=== PATIENT | female | born 1990 | race Caucasian/White ===

== ENCOUNTER 2019-08-18 07:45 | Outpatient (CLI) | payer OTHER, SELFPAY ==
[2019-08-18 09:26] LABS: Alanine Aminotransferase 39 U/L (14-59); Albumin Level 3.8 g/dL (3.4-5.0); Alkaline Phosphatase 55 U/L (46-116); Aspartate Amino Transferase 20 U/L (15-37); Bilirubin,Total 0.5 mg/dL (0.00-1.00); Blood Urea Nitrogen 16 mg/dL (7-18); Calcium 9.3 mg/dL (8.5-10.1); Carbon Dioxide 26 mmol/L (21-32); Chloride 106 mmol/L (98-108); Estimated Glomerular Filt Rate > 60; Folic Acid 15.9 ng/mL (8.6->20); Free T3 3.04 pg/mL (2.18-3.98); Free T4 Free Thyroxine 0.76 ng/dL (0.76-1.46); Glucose 124 mg/dL (70-99); Osmolality Calculated 296 mOsm/kg (285-295); Sodium 142 mmol/L (136-145); Thyroid Stimulating Hormone 1.99 uIU/mL (0.36-3.74); Vitamin B12 508 pg/mL (193-986)
[2019-08-21 12:17] LABS: Parathyroid Intact 22 pg/mL (14-64)
[2019-08-22 05:07] LABS: Thyroid Peroxidase Antibodies 39 IU/mL (<9)
[2019-08-23 15:21] LABS: Thyroid Stimulating Immunoglob <89 % baseline (<140)
== END 2019-08-18 07:46 | disposition home or self-care (01) ==
LOC: CHSLAB 07:48
PROVIDERS: PCP Family Medicine; Visit Provider Internal Medicine Endocrinology, Diabetes & Metabolism
DX: M85.80 Other specified disorders of bone density and structure, unspecified site (principal); R53.83 Other fatigue
CPT/HCPCS: 36415; 80053; 82306; 82607; 82746; 83970; 84439; 84443; 84445; 84481; 86376

== ENCOUNTER 2019-11-05 09:03 | Outpatient (CLI) | payer OTHER, SELFPAY ==
--- NOTE | ~2019-11-05 | US_ITS ---
EXAMINATION: US thyroid DATE: 11/05/2019 09:48 INDICATION: Goiter. TECHNIQUE: Multiple ultrasound images of the thyroid were obtained. COMPARISON: None. FINDINGS: The right thyroid lobe measures 4.8 x 1.1 x 1.6 cm. The left thyroid lobe measures 4.5 x 0.8 x 1.4 c m. In the right thyroid lobe, there is a 5 mm solid, hypoechoic, ucdkp-[id number]-syoi nodule with irregul ar margin without echogenic foci (TI-RADS TR4). In the left thyroid lobe, there is an 8 mm solid, hyp oechoic, aepuq-lwis-hcee nodule with lobulated margin without echogenic foci (TR4). IMPRESSION: 1. Small thyroid nodules, likely not clinically significant. No imaging follow-up is needed. Reviewed, dictated and finalized at location A. IMPRESSION: 1. Small thyroid nodules, likely not clinically significant. No imaging follow- up is needed.
[2019-11-05 09:32] LABS: Hemoglobin A1C 5.1 % (<5.7)
[2019-11-05 10:18] LABS: Alanine Aminotransferase 35 U/L (14-59); Albumin Level 3.7 g/dL (3.4-5.0); Alkaline Phosphatase 84 U/L (46-116); Anion Gap 14.7 mmol/L (7-16); Aspartate Amino Transferase 33 U/L (15-37); Bilirubin,Total 0.4 mg/dL (0.00-1.00); Blood Urea Nitrogen 7 mg/dL (7-18); Calcium 9.1 mg/dL (8.5-10.1); Carbon Dioxide 26 mmol/L (21-32); Chloride 103 mmol/L (98-108); Cholesterol 146 mg/dL (0-200); Estimated Glomerular Filt Rate > 60; Free T3 3.19 pg/mL (2.18-3.98); Free T4 Free Thyroxine 0.97 ng/dL (0.76-1.46); Glucose 75 mg/dL (70-99); HDL Direct 90 mg/dL (40-60); LDL Cholesterol Calculated 45 mg/dL (<130); Osmolality Calculated 287 mOsm/kg (285-295); Potassium 3.7 mmol/L (3.5-5.1); Sodium 140 mmol/L (136-145); Thyroid Stimulating Hormone 1.04 uIU/mL (0.36-3.74); Total Protein 7.1 g/dL (6.4-8.2); Triglycerides 55 mg/dL (0-150)
[2019-11-08 03:22] LABS: Insulin Level Total 2.7 uIU/mL (<=19.6); Thyroid Peroxidase Antibodies 76 IU/mL (<9)
[2019-11-09 18:45] LABS: Vitamin D 25 Hydroxy 43 ng/mL (30-100)
== END 2019-11-05 09:04 | disposition home or self-care (01) ==
PROVIDERS: PCP Family Medicine; Visit Provider Internal Medicine Endocrinology, Diabetes & Metabolism
DX: E06.3 Autoimmune thyroiditis (principal); E55.9 Vitamin D deficiency, unspecified; R73.01 Impaired fasting glucose; E04.9 Nontoxic goiter, unspecified
CPT/HCPCS: 36415; 76536; 80053; 80061; 82306; 83036; 83525; 84439; 84443; 84481; 86376

== ENCOUNTER 2020-03-18 19:56 | Emergency (ER) | payer OTHER, SELFPAY ==
--- NOTE | ~2020-03-18 | XR_ITS ---
EXAMINATION: XR abdomen/kub 1V INDICATION: Constipation TECHNIQUE: Supine views of the abdomen were obtained on 2 radiographs. COMPARISON: 09/04/2009 FINDINGS: The bowel gas pattern is normal. There is a moderate volume of colonic stool. No dilated lo ops of bowel are evident. The visualized lung bases are clear. An IUD is noted. The osseous structure s are unremarkable. IMPRESSION: 1. Moderate volume of colonic stool. Reviewed, dictated and finalized at location A.
--- NOTE | 2020-03-18 20:02 | ED.GIBLEED ---
HPI - GI Bleed General Chief complaint: Unspecified Stated complaint: rectal bleeding Time Seen by Provider: 03/18/20 20:07 Source: patient and RN notes reviewed Mode of arrival: ambulatory Limitations: no limitations History of Present Illness HPI Narrative: patient states she has had bloating and constipation with some abdominal pain right lower quadrant for 6 months. She vomited once today. She had some blood on her stool 1 week ago and then it resolved and then she had blood on her stool today. She does have a history of constipation. She denies any fever chills. complaint: blood on toilet paper Onset (ago): week(s) (1) Pain Consistency: intermittent Severity: moderate Exacerbating factors: bowel movement Context: hemorrhoids Associated symptoms: abdominal pain and vomiting (once today) Treatments Prior to Arrival: none Related Data Home Medications Medication Instructions Recorded Confirmed No Home Medications 03/18/20 03/18/20 Allergies Allergy/AdvReac Type Severity Reaction Status Date / Time No Known Allergies Allergy Unverified 06/14/14 09:08 Review of Systems Review of Systems: All systems reviewed & are unremarkable except as noted in HPI and below PMFSH Past Medical History Medical History (Updated 03/18/20 @ 21:37 by Selvin Owens MD) Chromosome abnormality Hemorrhoids Surgical History Surgical History Cleft palate Social History Social History (Updated 03/18/20 @ 20:32 by Selvin Owens MD) Smoking status: Current every day smoker Tobacco type: cigarettes Alcohol intake: current Alcohol use details: daily beer and hard liquor Substance use: never Exam Const: General: healthy appearing and no acute distress Nutritional Appearance: well nourished Orientation/consciousness: patient oriented x3 Other: Female nurse in room during examination. HENMT: Head: normal to inspection Ears: external ears normal General nose exam: Normal external nose present Eyes: Conjunctivae: conjunctivae normal Pupils: Equal, round and reactive pupils present EOM: EOMs intact bilaterally Neck: Neck: normal visual inspection Resp: Effort & Inspection: normal respiratory effort Auscultation: clear to auscultation bilaterally Cardio: Rate: regular rate Rhythm: regular rhythm GI: GI Palp: Yes Soft to palpation, Yes Tenderness to palpation present (GI) (RLQ-Mild), No Guarding due to palpation present (GI) and No Rebound tenderness present Auscultation: normal bowel sounds Rectal Exam: normal sphincter tone, No External hemorrhoid(s) present, No Internal hemorrhoid(s) present, No fecal impaction and No Anal fissure(s) present Back/Spine/Pelvis: Cervical Spine: cervical ROM normal Thoracic/Lumbar Spine: thoraco-lumbar ROM normal Skin: General skin exam: normal color Rashes: no rashes Neuro: General: patient oriented x3, moves all extremities and no focal motor deficits Speech: normal speech Gait exam (Neuro): Normal gait present Extrem: General: normal to inspection and no clubbing, cyanosis or edema Psych: Appearance: grossly normal and well kempt Mental Status: mental status grossly normal Affect: normal affect Attitude: cooperative Thought content: Yes Normal thought content present Course Vital Signs Vital signs: Vital Signs Temperature 36.6 C 03/18/20 20:10 Pulse Rate 86 03/18/20 20:10 Respiratory Rate 14 03/18/20 20:10 Blood Pressure 158/100 H 03/18/20 20:10 Pulse Oximetry 99 03/18/20 20:10 Temperature 36.6 C 03/18/20 20:10 Pulse Rate 80 03/18/20 21:40 Respiratory Rate 14 03/18/20 21:40 Blood Pressure 147/94 H 03/18/20 21:40 Pulse Oximetry 99 03/18/20 21:40 MDM - GI Bleed Lab Data Result diagrams: 03/18/20 20:39 03/18/20 20:39 Labs: Lab Results 03/18/20 03/18/20 03/18/20 Range/Units 20:39 20:39 20:39 WBC 7.6 (4.8-10.8)
[2020-03-18 20:10] VITALS: BP 158/100; PULSE 86; RESP 14; TEMP 36.6; O2SAT 99
[2020-03-18 20:46] LABS: Basophils Absolute Auto 0.03 K/mm3 (0.00-0.10); Basophils Percent Auto 0.4 % (0.0-1.0); Eosinophils Absolute Auto 0.23 K/mm3 (0.02-0.50); Hemoglobin 14.3 g/dL (12.0-15.0); Immature Granulocyte Absolute 0.03 K/mm3 (0.00-0.00); Immature Granulocyte Percent A 0.4 % (0.0-0.0); Lymphocytes Absolute Auto 1.77 K/mm3 (1.10-4.50); Lymphocytes Percent Auto 23.3 % (18.0-42.0); Mean Corpuscular Hemoglobin 32.3 pg (27.0-31.0); Mean Corpuscular Volume 94.8 fL (78.0-102.0); Monocytes Absolute Auto 0.59 K/mm3 (0.10-0.90); Monocytes Percent Auto 7.8 % (2.0-11.0); Neutrophils Percent Auto 65.1 % (50.0-70.0); Platelet Count Result 268 K/mm3 (150-420); Red Blood Count 4.43 M/mm3 (4.20-5.40); Red Cell Distribution Width 12.6 % (11.6-14.4); White Blood Count 7.6 K/mm3 (4.8-10.8)
[2020-03-18 20:47] LABS: Add Urine Microscopic? NO; Appearance Urine Clear (Clear); Bilirubin Urine Negative (Negative); Blood Urine Negative (Negative); Color Urine Yellow (Yellow); Glucose Urine UA Negative (Negative); Ketones Urine Negative (Negative); Leukocyte Esterase Ur Negative LEU/UL (Negative); Nitrate Urine Negative (Negative); Protein Urine Negative (Negative); Specific Grav Ur <= 1.005 (1.010-1.020); Urobilinogen Urine 0.2 mg/dL (0.2-1.0)
[2020-03-18 20:48] LABS: Occult Blood Negative (Negative)
[2020-03-18 20:57] LABS: CRP < 0.5 mg/dL (0.0-0.9)
[2020-03-18 21:03] LABS: Alanine Aminotransferase 33 U/L (14-59); Albumin Level 3.6 g/dL (3.4-5.0); Alkaline Phosphatase 81 U/L (46-116); Anion Gap 6 mmol/L (8-16); Aspartate Amino Transferase 21 U/L (15-37); Bilirubin,Total 0.3 mg/dL (0.00-1.00); Blood Urea Nitrogen 10 mg/dL (7-18); Calcium 8.9 mg/dL (8.5-10.1); Carbon Dioxide 30 mmol/L (21-32); Chloride 102 mmol/L (98-108); Estimated Glomerular Filt Rate > 60; Glucose 89 mg/dL (70-99); Lipase 182 U/L (73-393); Osmolality Calculated 284 mOsm/kg (285-295); Potassium 3.6 mmol/L (3.5-5.1); Sodium 138 mmol/L (136-145); Total Protein 7.4 g/dL (6.4-8.2)
[2020-03-18 21:08] LABS: Pregnancy On Board Control Positive; Urine Pregnancy Test Negative
[2020-03-18 21:40] VITALS: BP 147/94; PULSE 80; RESP 14; O2SAT 99
== END 2020-03-18 21:45 | disposition home or self-care (01) ==
PROVIDERS: Emergency Provider Emergency Medicine; PCP Family Medicine
DX: K59.04 Chronic idiopathic constipation (principal)
CPT/HCPCS: 36415; 74018; 80053; 81003; 81025; 82272; 83690; 85025; 86140; 99282; 99283

== ENCOUNTER 2020-03-21 08:40 | Outpatient (CLI) | payer OTHER, SELFPAY ==
[2020-03-21 09:39] LABS: Alanine Aminotransferase 29 U/L (14-59); Albumin Level 3.8 g/dL (3.4-5.0); Alkaline Phosphatase 80 U/L (46-116); Anion Gap 6 mmol/L (8-16); Aspartate Amino Transferase 19 U/L (15-37); Bilirubin,Total 0.5 mg/dL (0.00-1.00); Blood Urea Nitrogen 8 mg/dL (7-18); Calcium 9.1 mg/dL (8.5-10.1); Carbon Dioxide 29 mmol/L (21-32); Chloride 104 mmol/L (98-108); Estimated Glomerular Filt Rate > 60; Free T3 3.98 pg/mL (2.18-3.98); Free T4 Free Thyroxine 1.01 ng/dL (0.76-1.46); Glucose 95 mg/dL (70-99); Osmolality Calculated 286 mOsm/kg (285-295); Sodium 139 mmol/L (136-145); Thyroid Stimulating Hormone 3.24 uIU/mL (0.36-3.74); Total Protein 7.6 g/dL (6.4-8.2)
[2020-03-23 17:57] LABS: Vitamin D 25 Hydroxy 36 ng/mL (30-100)
[2020-03-25 04:24] LABS: Thyroid Peroxidase Antibodies 52 IU/mL (<9)
== END 2020-03-21 08:41 | disposition home or self-care (01) ==
LOC: CHSLAB 08:42
PROVIDERS: PCP Family Medicine; Visit Provider Internal Medicine Endocrinology, Diabetes & Metabolism
DX: E55.9 Vitamin D deficiency, unspecified (principal); E06.3 Autoimmune thyroiditis
CPT/HCPCS: 36415; 80053; 82306; 84439; 84443; 84481; 86376

== ENCOUNTER 2020-05-22 15:52 | Outpatient (CLI) | payer OTHER, SELFPAY ==
--- NOTE | ~2020-05-22 | XR_ITS ---
EXAMINATION: XR abdomen obstructive series DATE: 05/22/2020 16:40 INDICATION: Right lower quadrant abdominal pain. Nausea and vomiting. TECHNIQUE: Supine and upright views of the abdomen. FINDINGS: 03/18/2020 The visualized lung parenchyma is normal.. There is a nonobstructive bowel gas pattern. Gas and stool are seen throughout the colon to the level of the rectum. There is no free air. There is an IUD in the pelvis. IMPRESSION: 1. No acute abdominal abnormality. Reviewed, dictated and finalized at location B. [employer]
[2020-05-22 16:15] LABS: Basophils Absolute Auto 0.05 K/mm3 (0.00-0.10); Basophils Percent Auto 0.6 % (0.0-1.0); Eosinophils Absolute Auto 0.44 K/mm3 (0.02-0.50); Eosinophils Percent Auto 5.5 % (1.0-6.0); Immature Granulocyte Absolute 0.02 K/mm3 (0.00-0.00); Immature Granulocyte Percent A 0.2 % (0.0-0.0); Lymphocytes Absolute Auto 1.71 K/mm3 (1.10-4.50); Lymphocytes Percent Auto 21.3 % (18.0-42.0); Mean Corpuscular HGB Conc 33.3 g/dL (32.0-36.0); Mean Corpuscular Volume 95.9 fL (78.0-102.0); Mean Platelet Volume 9.4 fl (9.2-11.8); Monocytes Absolute Auto 0.56 K/mm3 (0.10-0.90); Neutrophils Absolute Auto 5.3 K/mm3 (1.7-7.2); Neutrophils Percent Auto 65.4 % (50.0-70.0); Platelet Count Result 304 K/mm3 (150-420); Red Blood Count 4.38 M/mm3 (4.20-5.40); Red Cell Distribution Width 11.9 % (11.6-14.4)
[2020-05-22 16:18] LABS: Add Urine Microscopic? NO; Appearance Urine Clear (Clear); Bilirubin Urine Negative (Negative); Blood Urine Negative (Negative); Color Urine Yellow (Yellow); Glucose Urine UA Negative (Negative); Ketones Urine Negative (Negative); Leukocyte Esterase Ur Negative LEU/UL (Negative); Nitrate Urine Negative (Negative); Protein Urine Negative (Negative); Specific Grav Ur 1.015 (1.010-1.020); Urobilinogen Urine 0.2 mg/dL (0.2-1.0)
[2020-05-22 16:48] LABS: Alanine Aminotransferase 33 U/L (14-59); Albumin Level 3.9 g/dL (3.4-5.0); Alkaline Phosphatase 70 U/L (46-116); Amylase 66 U/L (25-115); Anion Gap 7 mmol/L (8-16); Aspartate Amino Transferase 18 U/L (15-37); Bilirubin,Total 0.6 mg/dL (0.00-1.00); Blood Urea Nitrogen 10 mg/dL (7-18); Calcium 9.3 mg/dL (8.5-10.1); Carbon Dioxide 30 mmol/L (21-32); Chloride 102 mmol/L (98-108); Estimated Glomerular Filt Rate > 60; Glucose 87 mg/dL (70-99); Lipase 169 U/L (73-393); Osmolality Calculated 286 mOsm/kg (285-295); Potassium 4.2 mmol/L (3.5-5.1); Sodium 139 mmol/L (136-145); Total Protein 7.2 g/dL (6.4-8.2)
== END 2020-05-22 15:53 | disposition home or self-care (01) ==
LOC: CHSLAB 15:53
PROVIDERS: PCP Family Medicine; Visit Provider Family Medicine
DX: R10.9 Unspecified abdominal pain (principal)
CPT/HCPCS: 36415; 74019; 80053; 81003; 82150; 83690; 85025

== ENCOUNTER 2020-07-01 08:30 | Outpatient (CLI) | payer OTHER, SELFPAY ==
[2020-07-03 19:06] LABS: SARS-CoV-2 RNA PCR Negative
== END 2020-07-01 08:31 | disposition home or self-care (01) ==
LOC: CHSLAB 08:34
PROVIDERS: PCP Family Medicine; Visit Provider Family Medicine
DX: Z01.812 Encounter for preprocedural laboratory examination (principal); Z20.822 Contact with and (suspected) exposure to COVID-19
CPT/HCPCS: C9803; U0003

== ENCOUNTER 2020-08-27 09:02 | Outpatient (CLI) | payer OTHER, SELFPAY ==
[2020-08-28 18:02] LABS: SARS-CoV-2 RNA PCR Negative
== END 2020-08-27 09:03 | disposition home or self-care (01) ==
LOC: CHSLAB 09:04
PROVIDERS: PCP Family Medicine; Visit Provider Family Medicine
DX: Z01.818 Encounter for other preprocedural examination (principal); Z20.822 Contact with and (suspected) exposure to COVID-19
CPT/HCPCS: C9803; U0003; U0005

== ENCOUNTER 2020-09-04 15:52 | Outpatient (CLI) | payer OTHER, SELFPAY ==
--- NOTE | ~2020-09-04 | XR_ITS ---
XR thoracic spine 3V DATE: 09/04/2020 16:22 INDICATION: Mid to lower back pain. No known injury. TECHNIQUE: Lateral and swimmer views only COMPARISON: None FINDINGS: No fracture or dislocation or bone destruction is evident. There is slight spurring at T12- L1. IMPRESSION: No significant abnormality of the thoracic spine on this limited lateral view only examin ation Reviewed, dictated and finalized at location A. IMPRESSION: No significant abnormality of the thoracic spine on this limited la teral view only examination
--- NOTE | ~2020-09-04 | XR_ITS ---
XR lumbar spine 2-3V DATE: 09/04/2020 16:22 INDICATION: Low back pain. No known injury. TECHNIQUE: Lateral and lateral lumbosacral views only. No AP view. COMPARISON: None FINDINGS: Probable transitional first sacral vertebra. Normal alignment of the lumbar spine. No fracture or bone destruction or spondylolisthesis is evident . Lumbar interspaces appear well preserved. An IUD device is noted. IMPRESSION: Probable transitional first sacral vertebra Reviewed, dictated and finalized at location A.
--- NOTE | ~2020-09-04 | XR_ITS ---
XR abdomen obstructive series DATE: 09/04/2020 16:23 INDICATION: Right lower quadrant abdominal pain, constipation, indigestion. History of ulcers. TECHNIQUE: Supine and upright AP views COMPARISON: 05/22/2020 obstructive series FINDINGS: Incidentally noted is a transitional lumbosacral vertebra. Heart size appears normal. The lung bases are clear. No pleural effusion or intraperitoneal free air. The psoas shadows appear intact. No visceromegaly is evident. There is no evidence of bowel obstruct ion. An IUD overlies the pelvis. IMPRESSION: No evidence of bowel obstruction or free air IUD Reviewed, dictated and finalized at Location A. Reviewed, dictated and finalized at location A.
== END 2020-09-04 15:53 | disposition home or self-care (01) ==
LOC: CHSIMG 15:54
PROVIDERS: PCP Family Medicine; Visit Provider Family Medicine
DX: R10.31 Right lower quadrant pain (principal); M54.6 Pain in thoracic spine; M54.5 Low back pain
CPT/HCPCS: 72072; 72100; 74019

== ENCOUNTER 2020-09-15 08:35 | Outpatient (CLI) | payer OTHER, SELFPAY ==
[2020-09-15 09:29] LABS: Alanine Aminotransferase 30 U/L (14-59); Albumin Level 3.7 g/dL (3.4-5.0); Alkaline Phosphatase 66 U/L (46-116); Anion Gap 10 mmol/L (8-16); Aspartate Amino Transferase 16 U/L (15-37); Blood Urea Nitrogen 9 mg/dL (7-18); Calcium 9.3 mg/dL (8.5-10.1); Carbon Dioxide 30 mmol/L (21-32); Chloride 101 mmol/L (98-108); Estimated Glomerular Filt Rate > 60; Free T3 2.95 pg/mL (2.18-3.98); Free T4 Free Thyroxine 1.02 ng/dL (0.76-1.46); Glucose 115 mg/dL (70-99); Osmolality Calculated 291 mOsm/kg (285-295); Potassium 3.4 mmol/L (3.5-5.1); Sodium 141 mmol/L (136-145); Total Protein 7.1 g/dL (6.4-8.2)
[2020-09-18 08:35] LABS: Thyroid Peroxidase Antibodies 55 IU/mL (<9)
[2020-09-18 15:42] LABS: Vitamin D 25 Hydroxy 25 ng/mL (30-100)
== END 2020-09-15 08:36 | disposition home or self-care (01) ==
LOC: CHSLAB 08:36
PROVIDERS: PCP Family Medicine; Visit Provider Internal Medicine Endocrinology, Diabetes & Metabolism
DX: E06.3 Autoimmune thyroiditis (principal); E55.9 Vitamin D deficiency, unspecified
CPT/HCPCS: 36415; 80053; 82306; 84439; 84443; 84481; 86376

== ENCOUNTER 2020-09-17 20:14 | Emergency (ER) | payer OTHER, SELFPAY ==
--- NOTE | ~2020-09-17 | CT_ITS ---
EXAMINATION: CT brain wo con EXAM DATE: 09/17/2020 20:47 INDICATION: Headache, generalized. TECHNIQUE: Spiral CT of the head was performed without contrast. Axial, coronal and sagittal images were reviewed. The dose-length product (DLP) for this examination was 529.67 mGy-cm. The exposure w as tailored according to patient size, and iterative reconstruction (ASIR) was used as additional dos e reduction technique. Comparison is made to prior examination from 02/06/2019. FINDINGS: There is no acute intraparenchymal hemorrhage. No evidence of intraparenchymal brain mass lesion. No evidence of acute infarction. There is no mass effect or midline shift. The ventricles are normal in size. There are no extra-axial collections. There are no acute calvarial fractures. T he orbits are unremarkable. Soft tissue is unremarkable. The visualized sinuses and mastoid air nancy ls are well aerated. IMPRESSION: 1. Normal head CT examination. Reviewed, dictated and finalized at location A.
[2020-09-17 20:20] VITALS: BP 147/88; PULSE 112; RESP 16; TEMP 36.3; O2SAT 100
--- NOTE | 2020-09-17 20:40 | ED.HA ---
HPI - Headache General Chief Complaint: Headache Stated Complaint: need ahead scan Time Seen by Provider: 09/17/20 20:29 Source: patient Mode of arrival: ambulatory Limitations: no limitations History of Present Illness HPI Narrative: This is a 30 year old female that presents to the ER for headaches intermittently over the last couple of months. Reports they are band like and feel like a pressure. She has been getting them almost everyday. She has not been taking any medications for her headaches. Denies fever, stiff neck, vision changes, or vomiting. Related Data Home Medications Medication Instructions Recorded Confirmed No Home Medications 03/18/20 09/17/20 Allergies Allergy/AdvReac Type Severity Reaction Status Date / Time No Known Allergies Allergy Verified 09/17/20 20:15 Review of Systems Review of Systems: Narrative: CONSTITUTIONAL: Denies fever EYES: Denies visual changes GASTROINTESTINAL: Denies vomiting NEUROLOGIC: Reports headache. Denies numbness, or weakness. All systems reviewed & are unremarkable except as noted in HPI and below PMFSH Past Medical History Medical History (Updated 09/17/20 @ 21:40 by Rachel Lopez PA-C) Chromosome abnormality Hemorrhoids Surgical History Surgical History Cleft palate Social History Social History (Updated 03/18/20 @ 20:32 by Selvin Owens MD) Smoking status: Current every day smoker Tobacco type: cigarettes Alcohol intake: current Substance use: never Gender identity (if verbalized by the patient): Female Exam Narrative: Exam Narrative: GENERAL: Well-appearing, well-nourished, and in no acute distress. HEAD: Normocephalic, atraumatic. EYES: PERRLA and EOMI. ENT: Nares clear, no rhinorrhea or epistaxis. Mucous membranes moist. Oropharynx without tonsillar hypertrophy exudate or other lesions. Bilateral TMs pearly hazel non-bulging NECK: Supple. No adenopathy or masses. CHEST: Clear to auscultation. No respiratory distress. No wheezes rales or rhonchi HEART: Regular rate and rhythm. No murmur heard. Normal peripheral pulses. EXTREMITIES: Normal range of motion. No edema. Strength equal in bilateral upper and lower extremities (5/5) SKIN: Warm, dry, no rash. NEURO: No focal deficits. Alert and oriented x3. Cranial nerves II through XII grossly intact. Normal [id number] PSYCH: Normal mood and affect Course Vital Signs Vital signs: Vital Signs Temperature 97.3 F L 09/17/20 20:20 Pulse Rate 112 H 09/17/20 20:20 Respiratory Rate 16 09/17/20 20:20 Blood Pressure 147/88 H 09/17/20 20:20 Pulse Oximetry 100 09/17/20 20:20 Temperature 97.3 F L 09/17/20 20:20 Pulse Rate 100 09/17/20 21:37 Respiratory Rate 16 09/17/20 21:37 Blood Pressure 154/103 H 09/17/20 21:37 Pulse Oximetry 99 09/17/20 21:37 MDM - Headache MDM Narrative Medical decision making narrative: Patient presents the emergency department for headaches that have been intermittent over the last couple months. Tachycardic upon arrival, this normalized with IV fluids. She is afebrile and nontoxic-appearing. She is neurologically intact. CT scan of the brain is normal. Reports improvement with migraine cocktail. She is stable and felt appropriate for further outpatient evaluation. She is to follow-up with primary care doctor. She was given warnings to return to the ER Imaging Data Radiologist's impression: ITS Impressions Head CT 09/17/20 20:50 IMPRESSION: 1. Normal head CT examination. Critical Care Time Critical Care Time Critical Care Time: No Discharge Plan Discharge Clinical Impression: Headache Qualifiers: Headache type: unspecified Headache chronicity pattern: chronic headache Intractability: not intractable Qualified Code(s): R51.9 - Headache, unspecified Patient Disposition: Home, Self-Care Condition: Stable Instructions: General Hea
[2020-09-17] MEDS: SODIUM CHLORIDE 0.9% IV 1,000 ML 999 ML IV CONT (21:21)
[2020-09-17] MEDS: KETOROLAC 30 MG/ML VIAL (*BKC) IV PUSH (21:23)
[2020-09-17] MEDS: diphenhydrAMINE HCl INJ 50 MG/ML VIAL 25 MG IV PUSH (21:25)
[2020-09-17] MEDS: METOCLOPRAMIDE HCL INJ 10 MG/2 ML VIAL IV PUSH (21:25)
[2020-09-17 21:37] VITALS: BP 154/103; PULSE 100; RESP 16; O2SAT 99
[2020-09-17 22:12] VITALS: BP 140/86; PULSE 75; RESP 16; O2SAT 97
--- NOTE | 2020-09-29 05:02 | PC.NURSE ---
LATE ENTRY This note is being entered to document information to the patient's record. The following information was omitted on [09/17/20], NS stopped at 2120 with 1000cc infused by [Noble Richardson].
== END 2020-09-17 22:13 | disposition home or self-care (01) ==
PROVIDERS: Emergency Provider Emergency Medicine; PCP Family Medicine
DX: R51.9 Headache, unspecified (principal); F17.210 Nicotine dependence, cigarettes, uncomplicated
CPT/HCPCS: 70450; 96365; 96375; 99284; J0131; J1200; J1885; J2765; J7030

== ENCOUNTER 2020-12-23 07:05 | Emergency (ER) | payer OTHER, SELFPAY ==
[2020-12-23 07:15] VITALS: BP 133/84; PULSE 94; PULSE 95; RESP 18; RESP 19; TEMP 36.2; O2SAT 100; O2SAT 98
[2020-12-23 07:16] VITALS: PULSE 93; RESP 21; O2SAT 99
[2020-12-23 07:30] VITALS: PULSE 96; RESP 19; O2SAT 99
[2020-12-23 07:31] VITALS: BP 140/81; PULSE 95; RESP 27; O2SAT 99
[2020-12-23] MEDS: LORazepam (*CRX) 0.5 MG TABLET 1 MG PO (07:42)
[2020-12-23 07:45] VITALS: PULSE 84; RESP 16; O2SAT 100
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
[2020-12-23 08:00] VITALS: PULSE 95; RESP 23
== END 2020-12-23 08:30 | disposition home or self-care (01) ==
LOC: ANHED 08:28
PROVIDERS: Emergency Provider Emergency Medicine; PCP Family Medicine
DX: F41.9 Anxiety disorder, unspecified (principal); M54.41 Lumbago with sciatica, right side; F17.200 Nicotine dependence, unspecified, uncomplicated
CPT/HCPCS: 99283; A9270

== ENCOUNTER 2020-12-27 15:49 | Outpatient (CLI) | payer OTHER, SELFPAY ==
--- NOTE | ~2020-12-27 | XR_ITS ---
XR lumbar spine 2-3V 12/27/2020 16:11 Indication: Low back pain for 2 months Procedure: 3 views lumbar spine Comparison: 09/04/2020 Findings: Vertebral body heights are maintained. No fracture, subluxation or dislocation. There is no rmal lumbar alignment. There is lumbarization of S1. Pedicles intact. Is an IUD partially visualized in the pelvis. Impression: 1: No significant abnormality of the lumbar spine. Reviewed, dictated and finalized at location A. Impression: 1: No significant abnormality of the lumbar spine.
== END 2020-12-27 15:50 | disposition home or self-care (01) ==
LOC: CHSIMG 15:52
PROVIDERS: PCP Family Medicine; Visit Provider Family Medicine
DX: M54.5 Low back pain (principal)
CPT/HCPCS: 72100

== ENCOUNTER 2021-04-11 07:37 | Outpatient (CLI) | payer OTHER, SELFPAY ==
[2021-04-11 08:06] LABS: Hemoglobin A1C 5.2 % (<5.7)
[2021-04-11 08:38] LABS: Alanine Aminotransferase 50 U/L (14-59); Albumin Level 3.6 g/dL (3.4-5.0); Alkaline Phosphatase 99 U/L (46-116); Anion Gap 11 mmol/L (8-16); Aspartate Amino Transferase 42 U/L (15-37); Bilirubin,Total 0.6 mg/dL (0.00-1.00); Blood Urea Nitrogen 6 mg/dL (7-18); Calcium 8.8 mg/dL (8.5-10.1); Carbon Dioxide 28 mmol/L (21-32); Chloride 101 mmol/L (98-108); Cholesterol 136 mg/dL (0-200); Estimated Glomerular Filt Rate > 60; Free T4 Free Thyroxine 0.82 ng/dL (0.76-1.46); Glucose 83 mg/dL (70-99); HDL Direct 64 mg/dL (40-60); LDL Cholesterol Calculated 52 mg/dL (<130); Osmolality Calculated 286 mOsm/kg (285-295); Potassium 3.9 mmol/L (3.5-5.1); Sodium 140 mmol/L (136-145); Thyroid Stimulating Hormone 0.67 uIU/mL (0.36-3.74); Total Protein 7.1 g/dL (6.4-8.2); Triglycerides 99 mg/dL (0-150)
[2021-04-15 05:03] LABS: Insulin Level Total 3.6 uIU/mL (<=19.6); Thyroid Peroxidase Antibodies 31 IU/mL (<9)
[2021-04-15 12:15] LABS: Vitamin D 25 Hydroxy 41 ng/mL (30-100)
== END 2021-04-11 07:38 | disposition home or self-care (01) ==
LOC: CHSLAB 07:39
PROVIDERS: PCP Family Medicine; Visit Provider Internal Medicine Endocrinology, Diabetes & Metabolism
DX: E55.9 Vitamin D deficiency, unspecified (principal); E06.3 Autoimmune thyroiditis; R73.01 Impaired fasting glucose
CPT/HCPCS: 36415; 80053; 80061; 82306; 83036; 83525; 84439; 84443; 84481; 86376

== ENCOUNTER 2021-04-24 14:26 | Outpatient (CLI) | payer OTHER, SELFPAY ==
[2021-04-24 16:21] LABS: SARS-CoV-2 RNA PCR Negative (Negative)
== END 2021-04-24 14:27 | disposition home or self-care (01) ==
LOC: CHSLAB 14:28
PROVIDERS: PCP Family Medicine; Visit Provider Family Medicine
DX: Z01.818 Encounter for other preprocedural examination (principal); Z20.822 Contact with and (suspected) exposure to COVID-19
CPT/HCPCS: C9803; U0003; U0005

== ENCOUNTER 2022-11-12 15:20 | Emergency (ER) | payer OTHER, SELFPAY ==
[2022-11-12] VITALS (9 sets, daily range): BP systolic 120–195; BP diastolic 80–120; PULSE 88–143; RESP 16–23; TEMP 36.3–37.3; O2SAT 97–100
--- NOTE | ~2022-11-12 | XR_ITS ---
EXAMINATION: XR chest 2V Exam Date/Time: 11/12/2022 16:05 CDT HISTORY: NON SPECIFIC CHEST PAIN SEVERAL HOURS; Smoked marijuana Comparison: None. RESULT: Lines, tubes, and devices: None. Lungs and pleura: Clear. Cardiomediastinal silhouette: Normal. Other: No acute osseous or upper abdominal finding. IMPRESSION: No acute cardiopulmonary process. Reviewed, dictated and finalized at location K.
--- NOTE | 2022-11-12 15:23 | ECG_ITS ---
Measurements Intervals [place] Rate: 114 P: 150 MS: 152 QRS: 137 QRSD: 84 T: 142 QT: 345 QTc: 475 Interpretive Statements SINUS TACHYCARDIA LIMB LEAD REVERSAL BASELINE ARTIFACT- I, II, III, AVR, AVL, AVF ABNORMAL ECG NO PREVIOUS ECG AVAILABLE FOR COMPARISON Electronically Signed On 11-12-2022 16:11:23 CDT by Tirso Lopez D.O.
--- NOTE | 2022-11-12 15:23 | ED.OVERDOSE ---
HPI - Overdose General Chief Complaint: Chest Pain Stated Complaint: chest pain Time Seen by Provider: 11/12/22 15:23 Source: patient, EMS and RN notes reviewed Mode of arrival: EMS Limitations: no limitations History of Present Illness HPI Narrative: Patient states she did some marijuana and then shortly after began having chest pain. She thinks it might have been laced with methamphetamine. She says that she does not use methamphetamine. History been having chest pain for the last 2.5 hours. When it would not resolve she called EMS. she denies any shortness of breath, she did have positive sweating diaphoresis initially but that has stopped. She denies any nausea vomiting. Denies any radiation the pain. She says she has a history of a valve problem but she does not know which valve. Onset (ago): hour(s) (2.5) Related Data Home Medications Medication Instructions Recorded Confirmed No Home Medications 11/12/22 11/12/22 Allergies Allergy/AdvReac Type Severity Reaction Status Date / Time No Known Allergies Allergy Verified 11/12/22 15:29 Review of Systems Review of Systems: All systems reviewed & are unremarkable except as noted in HPI and below PMFSH Past Medical History Medical History Chromosome abnormality Hemorrhoids Surgical History Surgical History Cleft palate Social History Social History (Updated 11/12/22 @ 16:29 by Selvin Owens MD) Smoking status: Current every day smoker Tobacco type: cigarettes Alcohol intake: current Alcohol use details: daily beer and hard liquor Substance use: current Substance use type: marijuana Living arrangements: with family Gender identity (if verbalized by the patient): Female Exam Const: General: healthy appearing, no acute distress and alert Nutritional Appearance: well nourished and thin Orientation/consciousness: patient oriented x3 Limitations: no limitations Other: Female nurse in room during examination. HENMT: Head: normal to inspection Ears: external ears normal Face/Nose/Sinus: Normal external nose present Face and sinus: normal facial exam Mouth: Yes moist mucous membranes Eyes: Conjunctivae: conjunctivae normal Pupils: Equal, round and reactive pupils present EOM: EOMs intact bilaterally Neck: Neck: normal visual inspection Resp: Effort & Inspection: normal respiratory effort Auscultation: clear to auscultation bilaterally Cardio: Rate: tachycardic Rhythm: regular rhythm GI: GI Palp: Yes Soft to palpation and No Tenderness to palpation present (GI) Auscultation: normal bowel sounds Back/Spine/Pelvis: Cervical Spine: cervical ROM normal Thoracic/Lumbar Spine: thoraco-lumbar ROM normal Skin: General skin exam: normal color Rashes: no rashes Neuro: General: patient oriented x3, moves all extremities, no focal motor deficits and CN's II-XI intact bilaterally Speech: normal speech Gait exam (Neuro): Normal gait present Extrem: General: normal to inspection and no clubbing, cyanosis or edema Psych: Mental Status: mental status grossly normal Affect: Anxious affect present Attitude: cooperative Course Vital Signs Vital signs: Vital Signs Temperature 37.3 C 11/12/22 15:30 Pulse Rate 122 H 11/12/22 15:30 Respiratory Rate 19 11/12/22 15:30 Blood Pressure 147/106 H 11/12/22 15:30 Pulse Oximetry 100 11/12/22 15:30 Oxygen Delivery Room Air 11/12/22 15:30 Temperature 36.3 C L 11/12/22 18:08 Pulse Rate 88 11/12/22 18:08 Respiratory Rate 17 11/12/22 18:08 Blood Pressure 120/82 11/12/22 18:08 Pulse Oximetry 98 11/12/22 18:08 Oxygen Delivery Room Air 11/12/22 18:08 MDM - Overdose MDM Narrative Medical decision making narrative: Patient admits to having panic attacks in the past. She is very anxious when she felt her heart rate increased and had
[2022-11-12 15:40] LABS: Basophils Absolute Auto 0.02 K/mm3 (0.00-0.10); Basophils Percent Auto 0.4 % (0.0-1.0); Eosinophils Absolute Auto 0.05 K/mm3 (0.02-0.50); Eosinophils Percent Auto 1.1 % (1.0-6.0); Hematocrit 41.2 % (35.0-49.0); Immature Granulocyte Absolute 0.02 K/mm3 (0.00-0.00); Immature Granulocyte Percent A 0.4 % (0.0-0.0); Lymphocytes Absolute Auto 0.62 K/mm3 (1.10-4.50); Lymphocytes Percent Auto 13.3 % (18.0-42.0); Mean Corpuscular Hemoglobin 33.3 pg (27.0-31.0); Mean Corpuscular Volume 97.9 fL (78.0-102.0); Mean Platelet Volume 9.9 fl (9.2-11.8); Monocytes Absolute Auto 0.29 K/mm3 (0.10-0.90); Monocytes Percent Auto 6.2 % (2.0-11.0); Neutrophils Absolute Auto 3.7 K/mm3 (1.7-7.2); Neutrophils Percent Auto 78.6 % (50.0-70.0); Platelet Count Result 169 K/mm3 (150-420); Red Blood Count 4.21 M/mm3 (4.20-5.40); White Blood Count 4.7 K/mm3 (4.8-10.8)
[2022-11-12 15:55] LABS: Partial Thromboplastin Time 25.5 SEC (23.90-30.70); Prothrombin Time 10.6 Seconds (9.50-12.10)
[2022-11-12 16:01] LABS: Appearance Urine Cloudy (Clear); Bilirubin Urine Negative (Negative); Blood Urine Negative (Negative); Color Urine Yellow (Yellow); Glucose Urine UA Trace (Negative); Ketones Urine Trace (Negative); Leukocyte Esterase Ur Trace LEU/UL (Negative); Nitrate Urine Negative (Negative); Protein Urine 1+ (Negative); Specific Grav Ur 1.025 (1.010-1.020); Urobilinogen Urine 0.2 mg/dL (0.2-1.0)
[2022-11-12 16:08] LABS: Alanine Aminotransferase 31 U/L (14-59); Albumin Level 3.7 g/dL (3.4-5.0); Alkaline Phosphatase 76 U/L (46-116); Anion Gap 10 mmol/L (8-16); Aspartate Amino Transferase 24 U/L (15-37); Bilirubin,Total 0.6 mg/dL (0.00-1.00); Blood Urea Nitrogen 5 mg/dL (7-18); Carbon Dioxide 27 mmol/L (21-32); Chloride 99 mmol/L (98-108); Estimated Glomerular Filt Rate > 60; Glucose 186 mg/dL (70-99); Osmolality Calculated 284 mOsm/kg (285-295); Sodium 136 mmol/L (136-145); Troponin I 5.3 ng/L (0.00-60.4)
[2022-11-12 16:12] LABS: Add Urine Microscopic? YES; Bacteria Urine 1+ /hpf; RBC Urine None seen /hpf (0-2); Squamous Epithelial Cell Urine Many /hpf (Few); WBC Urine None seen /hpf (0-3)
[2022-11-12 16:19] LABS: Amphetamine Screen Urine Negative (Negative); Barbiturate Screen Urine Negative (Negative); Benzodiazepines Screen Urine Negative (Negative); Cannabinoid Screen Urine Positive (Negative); Cocaine Screen Urine Negative (Negative); Methadone Screen Urine Negative (Negative); Opiate Screen Urine Negative (Negative); Phencyclidine Screen Urine Negative (Negative)
[2022-11-12] MEDS: POTASSIUM BICARBONATE 25 MEQ TABEF 50 MEQ PO (16:28)
[2022-11-12] MEDS: LORazepam (*CRX) 1 MG TABLET PO (16:33)
--- NOTE | 2022-11-12 18:30 | PC.NURSE ---
see downtime charting for discharge paperwork
== END 2022-11-12 18:08 | disposition home or self-care (01) ==
PROVIDERS: Emergency Provider Emergency Medicine; PCP Family Medicine
DX: F41.9 Anxiety disorder, unspecified (principal); R00.0 Tachycardia, unspecified; F12.90 Cannabis use, unspecified, uncomplicated; F17.210 Nicotine dependence, cigarettes, uncomplicated
CPT/HCPCS: 36415; 71046; 80053; 80307; 81001; 84484; 85025; 85610; 85730; 93005; 99284; A9270

== ENCOUNTER 2022-12-16 20:36 | Emergency (ER) | payer OTHER, SELFPAY ==
[2022-12-16 20:39] VITALS: BP 157/110; PULSE 89; RESP 16; TEMP 36.5; O2SAT 100
--- NOTE | 2022-12-16 20:46 | ECG_ITS ---
Measurements Intervals [place] Rate: 90 P: [place]: 0 QRS: 40 QRSD: 79 T: 71 QT: 360 QTc: 442 Interpretive Statements SINUS TACHYCARDIA OTHERWISE NORMAL ECG COMPARED TO ECG 11/12/2022 15:39:17 ATRIAL FIBRILLATION NOW PRESENT Electronically Signed On 12-18-2022 11:49:14 CDT by Sha Mendoza M.D.
--- NOTE | 2022-12-16 20:50 | PC.NURSE ---
2045: Pt asking for her significant other to come back to the exam room. RN informed her that there is no one in the waiting room at this time. Pt became increasingly anxious and walked out of the department to the parking lot in an effort to look for him. Pt unable to find her boyfriend and ambulated back to exam room.
--- NOTE | 2022-12-16 20:55 | ED.GENADULT ---
HPI - General Adult General Chief complaint: Chest Pain Stated complaint: chest pain Time Seen by Provider: 12/16/22 20:38 History of Present Illness HPI narrative: 32yo woman h/o alcohol abuse and dependence (about 6-10 drinks per day, 6-pack plus shots) presents anxious and tremulous with BP 150/110, but HR only in the 80s. Feels a chest pressure, but no pain. No fever, chills, cough, dyspnea, nausea, vomiting, diarrhea. Sometimes gets constipated. Related Data Home Medications Medication Instructions Recorded Confirmed No Home Medications 11/12/22 12/16/22 Allergies Allergy/AdvReac Type Severity Reaction Status Date / Time No Known Allergies Allergy Verified 12/16/22 20:47 Review of Systems Review of Systems: All systems reviewed & are unremarkable except as noted in HPI and below Constitutional: Constitutional: Denies chills and Denies fever(s) ENT: Denies vertigo and Denies dizziness Cardiovascular: Cardiovascular: Denies chest pain and Denies rapid heart rate Respiratory: Respiratory: Denies chest congestion, Denies cough and Denies dyspnea Gastrointestinal: Gastrointestinal: Denies abdominal pain, Reports constipation, Denies nausea and Denies vomiting PMFSH Past Medical History Medical History Chromosome abnormality Hemorrhoids Surgical History Surgical History Cleft palate Social History Social History Smoking status: Current every day smoker Tobacco type: cigarettes Alcohol intake: current Alcohol use details: daily beer and hard liquor Substance use: current Substance use type: marijuana Living arrangements: with family Gender identity (if verbalized by the patient): Female Exam Const: General: healthy appearing and alert Other: quite emotionally anxious, walking in and out of the ED preoccupied with making a phone call to get a ride Eyes: Conjunctivae: conjunctivae normal Resp: Effort & Inspection: normal respiratory effort and not labored Auscultation: clear to auscultation bilaterally Cardio: Rate: regular rate Rhythm: regular rhythm GI: Inspection: non-distended Skin: General skin exam: normal color, no jaundice and no pallor Neuro: General: patient oriented x3, moves all extremities and no focal motor deficits Speech: normal speech Gait exam (Neuro): Normal gait present Extrem: General: no edema Psych: Affect: Anxious affect present Other: goal directed and fluent speech Course Vital Signs Vital signs: Vital Signs Temperature 36.5 C 12/16/22 20:39 Pulse Rate 89 12/16/22 20:39 Respiratory Rate 16 12/16/22 20:39 Blood Pressure 157/110 H 12/16/22 20:39 Pulse Oximetry 100 12/16/22 20:39 Oxygen Delivery Room Air 12/16/22 20:39 Temperature 36.5 C 12/16/22 20:39 Pulse Rate 89 12/16/22 20:39 Respiratory Rate 16 12/16/22 20:39 Blood Pressure 157/110 H 12/16/22 20:39 Pulse Oximetry 100 12/16/22 20:39 Oxygen Delivery Room Air 12/16/22 20:39 Medical Decision Making MDM Narrative Medical decision making narrative: anxiety DDx alcohol withdrawal, panic attack, emotional stress. no evidence of acute coronary syndrome or intoxication Vital Signs Vital Signs: Vital Signs Temperature 36.5 C 12/16/22 20:39 Pulse Rate 89 12/16/22 20:39 Respiratory Rate 16 12/16/22 20:39 Blood Pressure 157/110 H 12/16/22 20:39 Pulse Oximetry 100 12/16/22 20:39 Oxygen Delivery Room Air 12/16/22 20:39 Temperature 36.5 C 12/16/22 20:39 Pulse Rate 89 12/16/22 20:39 Respiratory Rate 16 12/16/22 20:39 Blood Pressure 157/110 H 12/16/22 20:39 Pulse Oximetry 100 12/16/22 20:39 Oxygen Delivery Room Air 12/16/22 20:39 ECG Data EKG #1: Attestation: I personally reviewed and interpreted th
--- NOTE | 2022-12-16 20:59 | PC.NURSE ---
Pt inquired to this RN about how to test for tape worm because she thinks she could possibly have it. When RN asked why the pt felt that way, she stated because my cat might have tape worm too When RN asked why she thinks her cat has tape worm she stated because there was some blood in his poop . RN asked pt how her BMs have been and pt stated sometimes I am constipated . Pt denies abdominal pain, N/V/D or blood in stool.
[2022-12-16] MEDS: diazePAM (*CRX) 5 MG TABLET 10 MG PO (21:04)
[2022-12-16 21:12] VITALS: BP 151/109; PULSE 81; RESP 18; O2SAT 100
[2022-12-16 21:39] VITALS: BP 141/101; PULSE 80; RESP 20; O2SAT 99
== END 2022-12-16 21:40 | disposition home or self-care (01) ==
PROVIDERS: Emergency Provider Emergency Medicine
DX: F41.9 Anxiety disorder, unspecified (principal); F10.230 Alcohol dependence with withdrawal, uncomplicated; F17.210 Nicotine dependence, cigarettes, uncomplicated
CPT/HCPCS: 93005; 99283; A9270

== ENCOUNTER 2023-02-13 15:14 | Emergency (ER) | payer OTHER, SELFPAY ==
--- NOTE | ~2023-02-13 | XR_ITS ---
EXAMINATION: XR chest 2V 02/13/2023 16:21 INDICATION: Chest pain and anxiety PROCEDURE: 2 view chest COMPARISON: 11/12/2022 FINDINGS: The lungs are clear. Prominent left nipple shadow. The cardiomediastinal silhouette is with in normal limits. There are no pleural effusions. There is no pneumothorax suspected. IMPRESSION: 1: NO ACUTE CARDIOPULMONARY DISEASE. Reviewed, dictated and finalized at location L.
[2023-02-13 15:59] VITALS: BP 145/99; PULSE 110; RESP 20; TEMP 36.7; O2SAT 98
--- NOTE | 2023-02-13 16:02 | ECG_ITS ---
Measurements Intervals [place] Rate: 111 P: 76 [place]: 124 QRS: 63 QRSD: 86 T: 74 QT: 330 QTc: 449 Interpretive Statements SINUS TACHYCARDIA COMPARED TO ECG 12/16/2022 20:58:41 THERE IS NOW T-WAVE INVERSION IN V2, PERHAPS DUE TO LEAD PLACEMENT. CLINICAL CORRELATION ADVISED Electronically Signed On 02-13-2023 17:17:32 CDT by Nohemi Raymundo M.D.
[2023-02-13 16:18] LABS: Basophils Absolute Auto 0.1 K/mm3 (0.0-0.1); Basophils Percent Auto 0.8 % (0.2-1.2); Eosinophils Absolute Auto 0.1 K/mm3 (0-0.3); Eosinophils Percent Auto 1.1 % (0-4.4); Hematocrit 43.1 % (37.0-47.0); Hemoglobin 14.6 g/dL (12.0-15.0); Immature Granulocyte Absolute 0.02 K/mm3 (0.00-0.031); Immature Granulocyte Percent A 0.3 % (0-0.5); Lymphocytes Absolute Auto 0.91 K/mm3 (0.9-3.2); Lymphocytes Percent Auto 14.2 % (18.3-44.2); Mean Corpuscular HGB Conc 33.9 g/dl (32-36); Mean Corpuscular Hemoglobin 32.9 pg (26-34); Mean Corpuscular Volume 97.1 fl (80-100); Mean Platelet Volume 9.3 fl (7.4-10.4); Monocytes Absolute Auto 0.4 K/mm3 (0.1-0.6); Monocytes Percent Auto 6.4 % (2.6-8.5); Neutrophils Percent Auto 77.2 % (45.5-73.1); Platelet Count Result 150 k/mm3 (150-375); Red Blood Count 4.44 M/mm3 (4.2-5.4); White Blood Count 6.4 K/mm3 (4.5-10.0)
[2023-02-13 16:29] LABS: Alanine Aminotransferase 36 U/L (6-35); Albumin Level 4.2 g/dL (3.5-5.1); Alkaline Phosphatase 83 U/L (38-126); Anion Gap 10 mmol/L (8-16); Aspartate Amino Transferase 65 U/L (14-36); Bilirubin,Total 0.5 mg/dL (0.2-1.3); Blood Urea Nitrogen 9 mg/dL (7-17); Calcium 8.9 mg/dL (8.4-10.2); Carbon Dioxide 23 mmol/L (22-30); Chloride 102 mmol/L (98-107); Estimated Glomerular Filt Rate > 60; Glucose 87 mg/dL (65-110); Lipase 234 U/L (23-300); Potassium 3.5 mmol/L (3.4-5.0); Sodium 135 mmol/L (137-145)
[2023-02-13 16:32] LABS: Prothrombin Time 13.4 Seconds (11.1-14.7)
[2023-02-13 16:33] LABS: Partial Thromboplastin Time 27.5 SECONDS (22.3-36.8)
[2023-02-13 16:40] LABS: Troponin I < 0.012 ng/mL (0.000-0.034)
[2023-02-13 17:42] VITALS: BP 144/95; PULSE 92; RESP 18; O2SAT 98
--- NOTE | 2023-02-13 18:20 | ED.RECABL ---
HPI - Recheck/Abnormal Lab/Rx General Chief Complaint: Recheck/Abnormal Lab/Rx Stated Complaint: HTN - sent from clinic for evaluation Time Seen by Provider: 02/13/23 18:14 History of Present Illness HPI narrative: Patient is a 32-year-old female here for high blood pressure reading and constipation. She states that [facility] and had high blood pressures there is a bit she was sent into the emergency department for evaluation. She is requesting medication for high blood pressure, unsure if she has had in the past. She denies any chest pain. She notes she does feel anxious but states that is because she cannot poop. She notes that it has been about a week since she has had a bowel movement. She has been using enemas at home without improvement of symptoms. She endorses diffuse abdominal pain. No diarrhea, no fever, no chills, no cough, no congestion, no urinary symptoms. Patient does note that she is a daily alcohol user, last use last night. I asked her if she felt like she was in withdrawal and she adamantly declines. She states that her anxiety is not alcohol related and would not like to be treated for alcohol withdrawal. Related Data Allergies Allergy/AdvReac Type Severity Reaction Status Date / Time No Known Allergies Allergy Verified 02/13/23 15:14 Review of Systems Review of Systems: All systems reviewed & are unremarkable except as noted in HPI and below PMFSH Past Medical History Medical History Chromosome abnormality Hemorrhoids Surgical History Surgical History Cleft palate Social History Social History Smoking status: Current every day smoker Tobacco type: cigarettes Alcohol intake: current Alcohol use details: daily beer and hard liquor Substance use: current Substance use type: marijuana Living arrangements: with family Gender identity (if verbalized by the patient): Female Exam Narrative: GENERAL: Well-appearing, well-nourished, and in no acute distress. HEAD: Normocephalic, atraumatic. EYES: PERRLA and EOMI. ENT: Nares clear. Mucous membranes moist. NECK: Supple. CHEST: Clear to auscultation. No respiratory distress. HEART: Tachycardic. Normal peripheral pulses. ABDOMEN: Soft, nontender, nondistended. EXTREMITIES: Normal range of motion. No edema. SKIN: Warm, dry, no rash. NEURO: No focal deficits. Alert and oriented x3. PSYCH: Anxious appearing. Course Course Emergency Course: Chart review performed. Patient is a 32 year old female here with multiple complaints in triage including high blood pressure, anxiety and constipation. Last ED visit was in November of 2022 to [place] [facility], she was there for alcohol use. BP was 150/110 at that visit. Triage workup reviewed. CBC grossly normal, CMP grossly within normal limits aside from mild elevation in transaminases, consistent with ETOH use documented in history. Troponin is negative. Lipase is normal. Patient seen evaluated, in no acute distress. She does appear to be anxious, adamantly denies alcohol withdrawal and she would not like to be treated for alcohol withdrawal. Patient would like to be treated for constipation, will give dose of MiraLax here in the department and discharged with prescription for MiraLax. Advised follow-up with her primary care doctor regarding initiation of possible antihypertensive if she remains hypertensive. The results of pertinent diagnostic studies and exam findings were discussed. The patient?s provisional diagnosis and plan of care were discussed with the patient and present family. The patient and/or present family expressed understanding of the diagnosis and plan. The nurse was instructed to provide written instructions and appropriate follow-up information. The patient understands their need and responsibili
[2023-02-13] MEDS: polyethylene glycoL 3350 17 GM POWD.PACK PO (19:12)
== END 2023-02-13 19:14 | disposition home or self-care (01) ==
PROVIDERS: Student in an Organized Health Care Education/Training Program; Emergency Provider Student in an Organized Health Care Education/Training Program
DX: R03.0 Elevated blood-pressure reading, without diagnosis of hypertension (principal); K59.00 Constipation, unspecified; F17.210 Nicotine dependence, cigarettes, uncomplicated; R00.0 Tachycardia, unspecified; R94.31 Abnormal electrocardiogram [ECG] [EKG]
CPT/HCPCS: 36415; 71046; 80053; 81025; 83690; 84484; 85025; 85610; 85730; 93005; 99284

== ENCOUNTER 2023-02-25 03:33 | Emergency (ER) | payer OTHER, SELFPAY ==
--- NOTE | ~2023-02-25 | XR_ITS ---
EXAMINATION: XR chest 1V portable DATE: 02/25/2023 04:17 INDICATION: Centralized chest pain. TECHNIQUE: A single frontal view of the chest was obtained. COMPARISON: Chest 2 views 02/13/2023 FINDINGS: There is no pneumonia, pleural effusion, or pneumothorax. The heart size is normal. IMPRESSION: 1. No acute cardiopulmonary disease. Reviewed, dictated and finalized at location A.
[2023-02-25 03:39] VITALS: BP 150/103; PULSE 107; RESP 18; TEMP 36.8; O2SAT 100
--- NOTE | 2023-02-25 03:49 | ED.GENADULT ---
HPI - General Adult General Chief complaint: Unspecified Stated complaint: Chest Pain History of Present Illness HPI narrative: Emperatriz is a 32F with a PMH of etoh dependence, and anxiety that presented to the ED via EMS with chest pain. She is very on edge and it is very hard to get a consistent history. When first asked how can I help you she said my blood pressure is too high and we discussed how this is not at an acutely dangerous level. She then said well my chest hurts. When asked where it hurts she grabbed her left chest and said it acosta here. When asked to clarify she states it was racing. She stated she was nauseated as well as lightheaded but then went on to change her mind. She said she was having diarrhea but was constantly asking for something for her constipation. The entire visit she was very anxious appearing and trembling. She admits to tobacco use and states she only drinks 6 beers per day which she had yesterday evening. Related Data Allergies Allergy/AdvReac Type Severity Reaction Status Date / Time No Known Allergies Allergy Verified 02/13/23 15:14 Review of Systems Review of Systems: All systems reviewed & are unremarkable except as noted in HPI and below [facility] Past Medical History Medical History Chromosome abnormality Hemorrhoids Surgical History Surgical History Cleft palate Social History Social History Smoking status: Current every day smoker Tobacco type: cigarettes Alcohol intake: current Alcohol use details: daily beer and hard liquor Substance use: current Substance use type: marijuana Living arrangements: with family Gender identity (if verbalized by the patient): Female Exam Const: General: cooperative, comfortable and no acute distress Nutritional Appearance: average body habitus Orientation/consciousness: oriented to person Limitations: no limitations Other: cachectic appearing HENMT: Head: normal to inspection, normocephalic and atraumatic Eyes: General: appearance normal, both eyes and all related structures Visual Cotton: normal visual cotton by confrontation Alignment and Position: alignment normal Periorbital: periorbital findings normal Neck: Neck: normal visual inspection Chest: Chest palpation & inspection: normal inspection of the chest Resp: Effort & Inspection: normal respiratory effort and able to speak in complete sentences Auscultation: clear to auscultation bilaterally Cardio: Jugular venous distension: no JVD Rate: tachycardic Rhythm: regular rhythm GI: Inspection: normal to inspection GI Palp: No abdominal tenderness Skin: General skin exam: normal color and no rashes or lesions noted Lesions: no lesions Neuro: General: oriented to person, oriented to place and oriented to time Cranial nerves: Yes CN's II-XII intact bilaterally Cognition (Neuro): normal cognition Speech: normal speech Extrem: General: normal to inspection Psych: Appearance: disheveled Speech and movement: Pressured speech present, Psychomotor agitation in speech present and Restless speech present Affect: Anxious affect present Attitude: cooperative Thought process: Illogical thought process present and Loose association thought process present Insight: Limited insight present (Psych) Judgement: Poor judgement present (Psych) Course Course Emergency Course: Ordered EKG, CXR and labs EKG showed sinus tachycardia with a rate of 103, normal axis and no ST elevation/depression. CXR: No pneumothorax, consolidation or effusion CBC showed mild anemia, normal chemistries, etoh of 15, and a negative UDS By the time her labs were back her chest pain had resolved. She just stated that she was sleepy and she wanted a script sent for miralax. We discussed show she should follow up with
[2023-02-25 03:50] VITALS: BP 149/86
--- NOTE | 2023-02-25 03:59 | ECG_ITS ---
Measurements Intervals [place] Rate: 103 P: 72 [place]: 150 QRS: 52 QRSD: 85 T: 78 QT: 350 QTc: 459 Interpretive Statements SINUS TACHYCARDIA BASELINE ARTIFACT- I, II, III, AVR, AVL, AVF, V1-V3 BORDERLINE ECG COMPARED TO ECG 02/13/2023 16:06:40 NO SIGNIFICANT CHANGES Electronically Signed On 02-25-2023 7:11:08 CDT by Tirso Lopez D.O.
[2023-02-25] MEDS: ASPIRIN 81 MG CHEWABLE TABLET 324 MG PO (04:13)
[2023-02-25] MEDS: LORazepam INJ (*CRX) 2 MG/ML VIAL 0.5 MG IV PUSH (04:14)
[2023-02-25 04:21] LABS: Basophils Absolute Auto 0.04 K/mm3 (0.00-0.10); Basophils Percent Auto 0.5 % (0.0-1.0); Eosinophils Absolute Auto 0.06 K/mm3 (0.02-0.50); Eosinophils Percent Auto 0.8 % (1.0-6.0); Hemoglobin 11.9 g/dL (12.0-15.0); Immature Granulocyte Absolute 0.03 K/mm3 (0.00-0.00); Immature Granulocyte Percent A 0.4 % (0.0-0.0); Lymphocytes Percent Auto 12.6 % (18.0-42.0); Mean Corpuscular Hemoglobin 33.8 pg (27.0-31.0); Mean Corpuscular Volume 99.4 fL (78.0-102.0); Mean Platelet Volume 8.9 fl (9.2-11.8); Monocytes Absolute Auto 0.63 K/mm3 (0.10-0.90); Monocytes Percent Auto 7.9 % (2.0-11.0); Neutrophils Absolute Auto 6.2 K/mm3 (1.7-7.2); Neutrophils Percent Auto 77.8 % (50.0-70.0); Platelet Count Result 138 K/mm3 (150-420); Red Blood Count 3.52 M/mm3 (4.20-5.40); Red Cell Distribution Width 13.4 % (11.6-14.4)
[2023-02-25 04:32] LABS: Pregnancy On Board Control Positive; Urine Pregnancy Test Negative
[2023-02-25 04:41] LABS: Amphetamine Screen Urine Negative (Negative); Barbiturate Screen Urine Negative (Negative); Benzodiazepines Screen Urine Negative (Negative); Cannabinoid Screen Urine Negative (Negative); Cocaine Screen Urine Negative (Negative); Methadone Screen Urine Negative (Negative); Opiate Screen Urine Negative (Negative); Phencyclidine Screen Urine Negative (Negative)
[2023-02-25 04:42] LABS: Prothrombin Time 10.7 Seconds (9.50-12.10)
[2023-02-25 04:50] LABS: Alanine Aminotransferase 27 U/L (14-59); Albumin Level 3.3 g/dL (3.4-5.0); Alkaline Phosphatase 65 U/L (46-116); Anion Gap 6 mmol/L (8-16); Aspartate Amino Transferase 25 U/L (15-37); Bilirubin,Total 0.2 mg/dL (0.00-1.00); Blood Urea Nitrogen 9 mg/dL (7-18); Calcium 8.6 mg/dL (8.5-10.1); Carbon Dioxide 29 mmol/L (21-32); Chloride 103 mmol/L (98-108); Estimated Glomerular Filt Rate > 60; Ethanol 15 mg/dL (0-6); Glucose 106 mg/dL (70-99); Lipase 133 U/L (16-77); Magnesium 1.4 mg/dL (1.8-2.4); NT Pro B Type Natriuretic Pept 36 pg/mL (0-125); Osmolality Calculated 284 mOsm/kg (285-295); Potassium 3.5 mmol/L (3.5-5.1); Sodium 138 mmol/L (136-145); Thyroid Stimulating Hormone 0.92 uIU/mL (0.36-3.74); Total Protein 6.1 g/dL (6.4-8.2); Troponin I 7.7 ng/L (0.00-60.4)
[2023-02-25 04:55] VITALS: BP 135/89; PULSE 87; RESP 18; O2SAT 98
[2023-02-25 05:07] VITALS: BP 135/82; PULSE 87; RESP 18; TEMP 36.8; O2SAT 98
== END 2023-02-25 05:08 | disposition home or self-care (01) ==
PROVIDERS: Emergency Provider Family Medicine
DX: F41.9 Anxiety disorder, unspecified (principal); R07.9 Chest pain, unspecified; F17.210 Nicotine dependence, cigarettes, uncomplicated
CPT/HCPCS: 36415; 71045; 80053; 80307; 81025; 83690; 83735; 83880; 84443; 84484; 85025; 85610; 93005; 96374; 99284; A9270; J2060

== ENCOUNTER 2023-06-24 06:40 | Emergency (ER) | payer OTHER, SELFPAY ==
[2023-06-24] VITALS (27 sets, daily range): BP systolic 109–149; BP diastolic 70–108; PULSE 69–123; RESP 9–49; TEMP 36.6; O2SAT 96–100
[2023-06-24 07:08] LABS: Hematocrit 45.7 % (35.0-49.0); Immature Platelet Fraction Pct 8.9 % (1.0-7.0); Mean Corpuscular Hemoglobin 33.8 pg (27.0-31.0); Mean Corpuscular Volume 96.6 fL (78.0-102.0); Platelet Count Result 107 K/mm3 (150-420); Red Blood Count 4.73 M/mm3 (4.20-5.40); Red Cell Distribution Width 12.1 % (11.6-14.4); White Blood Count 5.9 K/mm3 (4.8-10.8)
--- NOTE | 2023-06-24 07:10 | ED.GENADULT ---
HPI - General Adult General Chief complaint: GI Bleed Stated complaint: Coughing or vomiting blood Time Seen by Provider: 06/24/23 07:10 Source: patient Mode of arrival: ambulatory Limitations: no limitations History of Present Illness HPI narrative: 33-year-old white female history of alcohol abuse said she vomited 1 time some blood this morning prior to admission. She says she has a history of ulcer she has reflux GERD. She had a EGD about 3 years ago complains of lightheadedness with standing. No other bleeding or bruising no shortness of breath chest pain cough fever runny nose sore throat swelling lumps or bumps rash or itching problems voiding or stooling or any other complaints. says she has not had a drink for 2 days. Past medical history: She considers herself an alcoholic. She has hypothyroidism osteoporosis osteoarthritis cleft palate she is on SSI. 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 She says she has not seen a doctor in [address] Burgess in February for anxiety. Related Data Home Medications Medication Instructions Recorded Confirmed escitalopram oxalate 10 mg tablet 10 mg PO PRN PRN Anxiety 06/24/23 06/24/23 Allergies Allergy/AdvReac Type Severity Reaction Status Date / Time No Known Allergies Allergy Verified 06/24/23 07:11 Review of Systems Review of Systems: All systems reviewed & are unremarkable except as noted in HPI and below PMFSH Past Medical History Medical History Chromosome abnormality Hemorrhoids Surgical History Surgical History Cleft palate Social History Social History Smoking status: Current every day smoker Tobacco type: cigarettes Alcohol intake: current Alcohol use details: daily beer and hard liquor Substance use: current Substance use type: marijuana Living arrangements: with family Gender identity (if verbalized by the patient): Female Exam Narrative: White female Thin, mildly anxious. ? Head:? Normocephalic atraumatic.? Eyes conjunctiva pink sclera nonicteric.? Oropharynx is clear with moist mucous membranes no exudates.? Neck is supple no lymphadenopathy nontender full range of motion.? Back is nontender.? Chest nontender.? Lungs are clear without wheezes rales or rhonchi.? Heart is regular rate rhythm without murmurs gallops or rubs.? Tachycardia. Abdomen soft and nontender no hepatosplenomegaly or masses no CVA tenderness no abdominal bruits.? Extremities no cyanosis clubbing or edema.? Neurological she is alert and oriented x4 motor and sensory grossly intact.? Skin is warm and dry without lesions. Course Vital Signs Vital signs: Vital Signs Temperature 36.6 C 06/24/23 06:45 Pulse Rate 116 H 06/24/23 06:45 Respiratory Rate 22 H 06/24/23 06:45 Blood Pressure 142/100 H 06/24/23 06:45 Pulse Oximetry 100 06/24/23 06:45 Oxygen Delivery Room Air 06/24/23 06:45 Temperature 36.6 C 06/24/23 06:45 Pulse Rate 87 06/24/23 10:31 Respiratory Rate 17 06/24/23 10:31 Blood Pressure 121/87 06/24/23 10:30 Pulse Oximetry 98 06/24/23 10:31 Oxygen Delivery Room Air 06/24/23 06:45 Medical Decision Making [facility] Narrative Medical decision making narrative: Patient placed in room # 3 History and physical performed. Hemoglobin 16 hematocrit 45.3 platelets 107. ETOH was negative. Lipase 103 CMP: Sodium 130 potassium 2.8 chloride 89 BUN 14 creatinine 0.89 bilirubin 1.8 AST 58 the rest of CMP was normal. Troponin was normal magnesium 1.6 9:05 a.m. heart rates down to 93. Will bolus the rest of her banana bag in. Independent Historian: patient Differential Dx includes but not limited to: peptic ulcer, disease esophageal varices bleeding electrolyte imbalance Medications were Reviewed: patient has not been taking any
--- NOTE | 2023-06-24 07:11 | ECG_ITS ---
Measurements Intervals [place] Rate: 105 P: 104 [place]: 139 QRS: 72 QRSD: 82 T: 84 QT: 347 QTc: 460 Interpretive Statements SINUS TACHYCARDIA NONSPECIFIC T-WAVE ABNORMALITY- HIGH LATERAL LEADS BASELINE ARTIFACT- I, III, AVR, AVL, AVF, V2 BORDERLINE ECG COMPARED TO ECG 02/25/2023 04:08:56 T-WAVE ABNORMALITY NOW PRESENT Electronically Signed On 06-24-2023 8:11:47 [employer] by Tirso Lopez D.O.
[2023-06-24 07:23] LABS: Alanine Aminotransferase 54 U/L (14-59); Albumin Level 4.1 g/dL (3.4-5.0); Alkaline Phosphatase 86 U/L (46-116); Anion Gap 5 mmol/L (8-16); Aspartate Amino Transferase 58 U/L (15-37); Bilirubin,Total 1.8 mg/dL (0.00-1.00); Blood Urea Nitrogen 11 mg/dL (7-18); Calcium 11.3 mg/dL (8.5-10.1); Carbon Dioxide 36 mmol/L (21-32); Chloride 89 mmol/L (98-108); Estimated Glomerular Filt Rate > 60; Glucose 144 mg/dL (70-99); Osmolality Calculated 272 mOsm/kg (285-295); Potassium 2.8 mmol/L (3.5-5.1); Sodium 130 mmol/L (136-145); Total Protein 8.1 g/dL (6.4-8.2)
[2023-06-24] MEDS: ONDANSETRON INJ 4 MG/2 ML VIAL IV PUSH (07:36)
[2023-06-24] MEDS: PANTOPRAZOLE SODIUM IV 40 MG VIAL 80 MG IV PUSH (07:38)
[2023-06-24 07:39] LABS: Partial Thromboplastin Time 26.5 SEC (23.90-30.70); Prothrombin Time 11.4 Seconds (9.50-12.10)
[2023-06-24] MEDS: MAGNESIUM SULF 2 GM/WATER 50ML 2 GM/50 ML BAG IVPB (07:39)
[2023-06-24 07:40] LABS: Ethanol < 3 mg/dL (0-6); Lipase 103 U/L (16-77); Magnesium 1.6 mg/dL (1.8-2.4); Troponin I 11.6 ng/L (0.00-60.4)
[2023-06-24] MEDS: LORazepam INJ (*CRX) 2 MG/ML VIAL 1 MG IV PUSH (07:42)
[2023-06-24 07:57] LABS: Lactic Acid Reflex 1.5 mmol/L (0.4-2.0)
[2023-06-24] MEDS: THIAMINE HCL INJ 100 MG, FOLIC ACID 1 MG, MULTIVITAMINS-12 INJ 10 ML, MAGNESIUM SULFATE... IV CONT (08:35)
--- NOTE | 2023-06-24 08:42 | PC.NURSE ---
PT IS RESTING ON STRETCHER WITH MOTHER AT BEDSIDE. NAD NOTED. PT DENIES ANY NEEDS OR COMPLAINTS. IVF INFUSING ORDERED WITHOUT DIFFICULTY. WILL CONTINUE TO MONITOR.
[2023-06-24] MEDS: POTASSIUM BICARBONATE 25 MEQ TABEF PO (09:56)
--- NOTE | 2023-06-24 09:59 | PC.NURSE ---
no change in pt status. pt is resting on stretcher with mother at bedside. ivf infusing as ordered without difficulty. pt arouses to verbal stimuli. will continue to monitor.
--- NOTE | 2023-06-24 10:15 | PC.NURSE ---
pt up to rr with assistance. pt reports drowsiness post medication. warm blanket provided. will continue to monitor.
--- NOTE | 2023-06-24 10:21 | PC.NURSE ---
Addendum entered by Savanna Alonzo RN 06/24/23 10:22: NOTE WAS TO BE ENTERED FOR 729. Original Note: PT WAS FOUND UP TO IN ROOM TELEPHONE WITH BP AND O2 MONITORS DISCONNECTED AND HR OF 169 NOTED. PT PLACED BACK ON STRETCHER AND MONITORS WERE REAPPLIED, ERP WAS NOTIFIED AND MEDICATIONS WERE ADMINISTERED. WILL CONTINUE TO MONITOR. PT REPORTED SHE FEELS IF I TORE MY ULCER OPEN.
--- NOTE | 2023-06-24 10:59 | PC.NURSE ---
NO EMESIS NOTED THROUGHOUT ED VISIT, MOTHER TO TRANSPORT.
== END 2023-06-24 10:45 | disposition home or self-care (01) ==
PROVIDERS: Emergency Provider Emergency Medicine; PCP Family Medicine
DX: K92.0 Hematemesis (principal); E86.9 Volume depletion, unspecified; E87.6 Hypokalemia; E83.42 Hypomagnesemia; F10.20 Alcohol dependence, uncomplicated; Y90.9 Presence of alcohol in blood, level not specified; F17.210 Nicotine dependence, cigarettes, uncomplicated
CPT/HCPCS: 36415; 80053; 80307; 83605; 83690; 83735; 84484; 85027; 85055; 85610; 85730; 86850; 86900; 86901; 93005; 96365; 96366; 96367; 96375; 99284; A9270; C9113; J2060; J2405; J3411; J3475; J7121

== ENCOUNTER 2023-12-26 08:53 | Outpatient (CLI) | payer OTHER, SELFPAY ==
--- NOTE | ~2023-12-26 | US_ITS ---
EXAMINATION: US right upper quadrant DATE: 12/26/2023 09:35 INDICATION: Abnormal liver function tests. TECHNIQUE: Multiple grayscale and Doppler ultrasound images of the abdomen were obtained. COMPARISON: None FINDINGS: There is a 3.1 cm hypoechoic mass in the head of the pancreas. There is diffuse hepatic devin atosis. No liver surface nodularity. There is normal flow in main portal vein. The gallbladder is nor mal in size. No gallstones or gallbladder wall thickening. There is no sonographic Burton's sign. The common duct is normal and measures 3 mm. IMPRESSION: 1. 3.1 cm mass in the head of the pancreas suspicious for neoplasm. Abdomen CT without and with contr ast is recommended. 2. Diffuse hepatic steatosis. Reviewed, dictated and finalized at location A. IMPRESSION: 1. 3.1 cm mass in the head of the pancreas suspicious for neoplasm. Abdomen CT without and with contrast is recommended. 2. Diffuse hepatic steatosis.
== END 2023-12-26 08:54 | disposition home or self-care (01) ==
LOC: CHSIMG 08:55
PROVIDERS: PCP Family Medicine; Visit Provider Family Medicine
DX: R74.01 Elevation of levels of liver transaminase levels (principal); K86.9 Disease of pancreas, unspecified; K76.0 Fatty (change of) liver, not elsewhere classified
CPT/HCPCS: 76705

== ENCOUNTER 2024-01-09 09:21 | Outpatient (CLI) | payer OTHER, SELFPAY ==
--- NOTE | ~2024-01-09 | CT_ITS ---
EXAMINATION: CT abdomen pelvis wo/w con DATE: 01/09/2024 10:17 INDICATION: Pancreatic mass TECHNIQUE: Computed tomography (CT) of the abdomen and pelvis was performed without and with 100 mL O mnipaque-350 intravenous contrast utilizing a standard pancreatic protocol. Automated exposure contro l and iterative reconstruction technique were employed. The dose-length product was 504.83 mGy-cm. COMPARISON: Ultrasound dated 12/26/2023 FINDINGS: Lung bases are clear. Heart size is normal. No pericardial or pleural effusion. Liver, gallbladder, s pleen, bilateral adrenal glands and kidneys are normal. No intra or extrahepatic biliary ductal dilat ion. Pancreas is normal with homogeneous parenchymal enhancement throughout a normal caliber main estrella creatic duct. No correlate identified for the hypoechoic lesion of concern on prior ultrasound. Bowel s including the appendix are normal. T-shaped IUD in expected position within the retroverted uterus. 9 mm nabothian cyst at the cervix. Decompressed bladder is unremarkable. Bilateral adnexa are unrema rkable. No free intraperitoneal gas or fluid. No pathologically enlarged abdominal or pelvic lymphade nopathy. IMPRESSION: 1. Normal pancreas. No acute intra-abdominal/pelvic process. 2. IUD in expected position within the retroverted uterus. Reviewed, dictated and finalized at location A.
[2024-01-09 09:53] LABS: Estimated Glomerular Filt Rate > 60
== END 2024-01-09 09:22 | disposition home or self-care (01) ==
LOC: CHSIMG 09:23
PROVIDERS: PCP Family Medicine; Visit Provider Family Medicine
DX: K86.89 Other specified diseases of pancreas (principal); Z97.5 Presence of (intrauterine) contraceptive device
CPT/HCPCS: 74178; Q9967

== ENCOUNTER 2024-07-23 16:27 | Emergency (ER) | payer OTHER, SELFPAY ==
--- NOTE | ~2024-07-23 | CT_ITS ---
EXAMINATION: CT brain wo con DATE: 07/23/2024 18:07 INDICATION: Head injury. Altered mental status. TECHNIQUE: Computed tomography (CT) of the head was performed without intravenous contrast. The mA wa s adjusted according to patient size. Iterative reconstruction technique was employed. The dose-lengt h product was 605.33 mGy-cm. COMPARISON: Head CT 09/17/2020 FINDINGS: There is no intracranial hemorrhage, acute infarction, or abnormal intracranial mass lesion . The ventricles are normal in size. The orbits are normal. There is mild mucosal thickening in the p aranasal sinuses. There are bilateral mastoid effusions. IMPRESSION: 1. Normal brain. Reviewed, dictated and finalized at location A. RANCE ENGINEER IMPRESSION: 1. Normal brain.
--- NOTE | ~2024-07-23 | CT_ITS ---
EXAMINATION: CT cervical spine wo con DATE: 07/23/2024 18:06 INDICATION: Head injury. TECHNIQUE: Computed tomography (CT) of the cervical spine was performed without intravenous contrast. Automated exposure control and iterative reconstruction technique were employed. The dose-length pro duct was 85.63 mGy-cm. COMPARISON: None FINDINGS: There is a right mastoid effusion. There is a left otomastoid effusion. There is 6 degrees dextrocurvature of cervical spine. There is kyphosis of cervical spine. Vertebral body heights are no rmal. There is mildly decreased disc height at C5-C6 and moderately decreased disc height at C6-C7. T he following disc levels are specifically discussed: C2-C3: There is no uncovertebral joint osteoarthritis. There is moderate right and severe left facet joint osteoarthritis. There is no neural foraminal stenosis. There is no central canal stenosis. C3-C4: There is no uncovertebral joint osteoarthritis. There is no facet joint osteoarthritis. There is no neural foraminal stenosis. There is no central canal stenosis. C4-C5: There is no uncovertebral joint osteoarthritis. There is no facet joint osteoarthritis. There is no neural foraminal stenosis. There is no central canal stenosis. C5-C6: There is no uncovertebral joint osteoarthritis. There is mild left facet joint osteoarthritis. There is no neural foraminal stenosis. There is no central canal stenosis. C6-C7: There is mild bilateral uncovertebral joint osteoarthritis. There is mild left facet joint ost eoarthritis. There is mild left neural foraminal stenosis. There is mild central canal stenosis. C7-T1: There is no uncovertebral joint osteoarthritis. There is severe bilateral facet joint osteoart hritis. There is no neural foraminal stenosis. There is no central canal stenosis. IMPRESSION: 1. No fracture. 2. Moderate cervical spondylosis. Reviewed, dictated and finalized at location A. APPLICATIONS ANALYST
--- NOTE | ~2024-07-23 | XR_ITS ---
CHEST RADIOGRAPH CLINICAL HISTORY: fall/ams . COMPARISON: 02/25/2023 TECHNIQUE: Single portable view of the chest. FINDINGS The cardiomediastinal silhouette is unremarkable. The lungs are clear. Visualized osseous structures and soft tissues are unremarkable. IMPRESSION: No focal infiltrate or effusion. Reviewed, dictated and finalized at location A. R BOAT CAPTAIN
--- OUTSIDE RECORDS SUMMARY | 2024-07-23 16:31 | XMS_ITS | CONTINUITY OF CARE DOCUMENT ---
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 Kaya Blanchard ENCOUNTERS Date Type Provider Location Encounter Diag nosis - In-person encounter Office Visit Kaya Chaves MD [facility] - [facility] Office Visit K[facility] Chaves MD [facility] PalpitationsPierre- 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8 [lb_av] Valentina Merlos blood pressure, diastolic 60 mm[Hg] Ananda Chaves MD blood pressure, systolic 98 mm[Hg] Amy Chaves MD pulse rate 74 /min Kaya Chaves MD oxygen saturation, oximetry 97 % Kaya Chaves MD respiratory rate E&M 16 /min Camacho Chaves MD Body Mass Index (Ratio) 19.19 kg/m2 Roseanne Chaves MD weight E&M 95 [lb_av] Kaya Chaves MD height E&M 59 [in_i] Kaya Chaves MD ALLERGIES No Known Drug Allergies HISTORY OF MEDICATION USE Medication Status Instructions Dates Provider Indications Com ments NAPROXEN 250 MG ORAL TABLET completed - Valentina Chelita SOCIAL HISTORY Date Observation Value Provider social history E&M S moking History: Erickson cobb currently smokes every day. Erickson cobb has been counseled to quit. Kaya Chaves MD smoking/tobacco cess ation, patient education and counseling yes Kaya Chaves MD social history reviewed E&M revi ewed - no changes required Kaya Chaves MD smoking history, tot al pack/day 3 cigarettes Valentina Chelita cigarette use yes Valentina Chelita smoking status Current every day smoker Lo Merlos social history E&M S moking History: Erickson cobb is a former smoker. Kaya Chaves MD smoking status Former smoker Kaya marie MD social history reviewed E&M revi ewed - no changes required Kaya Chaves MD INSURANCE PROVIDERS Payer name Policy type / Coverage type [employer]quille red constitution party ID YANIV MEDICAID (2) Medicaid [id number] TREATMENT PLAN Date Name Performer Cardiology:Her echoc ardiogram done today shows an EF of 55% and trivial tricuspid regurgitation, mild to moderate pulmonic regurgitation, and mild mitral regurgitation. Kaya Chaves MD Cardiology:No recurrence since h er last visit. Kaya Chaves MD Cardiology:She did h ave an echocardiogram in 04/2014 which showed a low normal LV systolic function with an EF of 50%. Trace TR, moderate DC, and a possible small supracristal VSD. Clinical evalution is unremarkable. We will repeat an echocardiogram. Kaya Chaves MD Cardiology:In sinus rhythm. The EKG does not show any significant abnormality. Kaya Chaves MD Date Name Complete Echo HISTORY OF PROCEDURES Procedure Date Procedure Name Provider Procedure Notes S tatus SNOMED-CT: 345440464 Smoking Cessation Counseling Kaya Chaves MD completed SNOMED-CT: 75929999 Physical Exam, Performed: Pulse Exam of Foot Kaya Chaves MD completed EKG Kaya Chaves MD complet ed SNOMED-CT: 432990036 847163 Current Medications Documented Kaya Chaves MD completed SNOMED-CT: 32010474 Physical Exam, Performed: Pulse Exam of Foot Kaya Chaves MD completed SNOMED-CT: 739473433 837376 Current Medications Documented Kaya Chaves MD completed SNOMED-CT: 741868961 Smoking Cessation Counseling Kaya Chaves MD completed
[2024-07-23 16:52] VITALS: BP 115/84; PULSE 87; RESP 16; TEMP 36.4; O2SAT 100
--- NOTE | 2024-07-23 17:01 | ED_ITS ---
HPI - General Adult General Chief complaint: Alcohol Stated complaint: unresponsive\ETOH Time Seen by Provider: 07/23/24 16:31 Source: patient and EMS Mode of arrival: EMS Limitations: clinical condition History of Present Illness HPI narrative: Patient is a 34-year-old female who was found unresponsive in a bathroom at a local store and EMS and Police Department were on scene. No medication was required. She was noted to be intoxicated with alcohol. No suicide or homicide ideation. She was brought to the ER for evaluation. Onset (ago): day(s) (1) Radiation: non-radiation Severity: similar to prior episodes ( Known to have prior alcoholism and drug use /abuse) Quality: other ( no pain) Relieving factors: none Exacerbating factors: none Associated symptoms: denies other symptoms Treatments prior to arrival: none Related Data Allergies Allergy/AdvReac Type Severity Reaction Status Date / Time No Known Allergies Allergy Verified 07/23/24 16:32 Review of Systems 2 Review of Systems: All systems reviewed & are unremarkable except as noted in HPI and below Constitutional: Constitutional: Reports no additional constitutional complaints Eyes: Eyes: Reports no additional eye complaints ENT: Reports system reviewed and no additional complaints, except as documented Cardiovascular: Cardiovascular: Reports no additional cardiovascular complaints Respiratory: Respiratory: Reports no additional respiratory complaints Gastrointestinal: Gastrointestinal: Reports no additional gastrointestinal complaints Genitourinary: Genitourinary: Reports no additional female genitourinary complaints Musculoskeletal: Musculoskeletal: Reports no additional musculoskeletal complaints Integumentary/Breasts: Skin/Breast: Reports system reviewed and no additional complaints, except as docu Neurologic: Reports system reviewed and no additional complaints, except as documented Psychiatric: Psychiatric: Reports no additional psychiatric complaints Endocrine: Endocrine: Reports no additional endocrine complaints Hematologic/Lymphatic: Hematologic/Lymphatic: Reports no additional hematologic/lymphatic complaints Allergic/Immunologic: Allergic/Immunologic: Reports no additional allergic/immunologic complaints PMFSH Past Medical History Medical History Chromosome abnormality Hemorrhoids Surgical History Surgical History Cleft palate Social History Social History Smoking status: Current every day smoker Tobacco type: cigarettes Alcohol intake: current Alcohol use details: daily beer and hard liquor Substance use: current Substance use type: marijuana Living arrangements: with family Gender identity (if verbalized by the patient): Female Exam 2 Const: General: healthy appearing Nutritional Appearance: well nourished Orientation/consciousness: patient oriented x3 Limitations: no limitations HENMT: Head: normal to inspection Ears: external ears normal F audelia/Nose/Sinus: Normal external nose present Eyes: Conjunctivae: conjunctivae normal Pupils: Equal, round and reactive pupils present EOM: EOMs intact bilaterally Neck: Neck: normal visual inspection Chest: Chest palpation & inspection: normal inspection of the chest Resp: Effort & Inspection: normal respiratory effort and not labored A uscultation: clear to auscultation bilaterally and no crackles Cardio: Rate: regular rate Rhythm: regular rhythm Heart sounds: no murmurs GI: Inspection: non-distended GI Palp: Yes Soft to palpation and No Tenderness to palpation present (GI) Auscultation: normal bowel sounds : General: Yes bladder normal to palpation Back/Spine/Pelvis: Back: no CVA tenderness Skin: General skin exam: normal color Rashes: no rashes Wounds: no wounds Neuro: General: patient oriented x3, moves all extremities, no meningeal signs, no focal motor deficits and CN's II-XI intact bilaterally Cranial nerves: Yes Nystagmus not present Speech: normal speech Gait exam (Neuro): Normal gait present Extrem: General: normal to inspection Psych: Mental Status: mental status grossly normal Affect: normal affect Attitude: cooperative ( somewhat) Course Vital Signs Vital signs: Vital Signs Temperature 36.4 C 07/23/24 16:52 Pulse Rate 87 07/23/24 16:52 Respiratory Rate 07/23/24 16:52 Blood Pressure 115/84 07/23/24 16:52 Pulse Oximetry 100 07/23/24 16:52 Oxygen Delivery Room Air 07/23/24 16:52 Temperature 36.4 C 07/23/24 16:52 Pulse Rate 87 07/23/24 16:52 Respiratory Rate 16 07/23/24 16:52 Blood Pressure 115/84 07/23/24 16:52 Pulse Oximetry 100 07/23/24 16:52 Oxygen Delivery Room Air 07/23/24 16:52 Medical Decision Making MDM Narrative Medical decision making narrative: patient is a 34-year-old female known alcoholic here for intoxication of alcohol. We will do a workup on her at this time. Family has presented. Patient's mother has come to the hospital to see the patient and said she is living with her at this time. She will take the patient home and monitor her overnight. No concerns for alcohol overdose. Vital Signs Vital Signs: Vital Signs Temperature 36.4 C 07/23/24 16:52 Pulse Rate 87 07/23/24 16:52 Respiratory Rate 16 07/23/24 16:52 Blood Pressure 115/84 07/23/24 16:52 Pulse Oximetry 100 07/23/24 16:52 Oxygen Delivery Room Air 07/23/24 16:52 Temperature 36.4 C 07/23/24 16:52 Pulse Rate 87 07/23/24 16:52 Respiratory Rate 16 07/23/24 16:52 Blood Pressure 115/84 07/23/24 16:52 Pulse Oximetry 100 07/23/24 16:52 Oxygen Delivery Room Air 07/23/24 16:52 Lab Data Lab results reviewed: Yes I reviewed the patient's lab results. 07/23/24 17:02 07/23/24 17:02 Labs: Lab Results 07/23/24 07/23/24 07/23/24 Range/Units 16:49 17:02 17:03 WBC 8.0 (4.8-10.8) K/mm3 RBC 4.89 (4.20-5.40) M/mm3 Hgb 15.1 H (12.0-15.0) g/dL Hct 46.5 (35.0-49.0) % MCV 95.1 (78.0-102.0) fL MCH 30.9 (27.0-31.0) pg MCHC 32.5 (32-36) g/dL RDW 12.7 (11.6-14.4) % Plt Count 258 (150-420) K/mm3 MPV 9.1 L (9.2-11.8) fl Immature Gran % (Auto) 0.4 H (0.0-0.0) % Neut % (Auto) 66.8 (50.0-70.0) % Lymph % (Auto) 25.0 (18.0-42.0) % [place] % (Auto) 6.8 (2.0-11.0) % Eos % (Auto) 0.6 L (1.0-6.0) % Baso % (Auto) 0.4 (0.0-1.0) % Lymph # (Auto) 1.99 (1.10-4.50) K/mm3 [place] # (Auto) 0.54 (0.10-0.90) K/mm3 Eos # (Auto) 0.05 (0.02-0.50) K/mm3 Baso # (Auto) 0.03 (0.00-0.10) K/mm3 Abs Immat Gran (auto) 0.03 H (0.00-0.00) K/mm3 Absolute Neuts (auto) 5.32 (1.70-7.20) K/mm3 Absolute Nucleated RBC 0.00 (0.00-0.00) K/mm3 Nucleated RBC % 0.0 (0-0.0) % Sodium 141 (136-145) mmol/L Potassium 3.0 L (3.5-5.1) mmol/L Chloride 100 (98-108) mmol/L Carbon Dioxide 31 (21-32) mmol/L Anion Gap 10 (4-12) mmol/L BUN 9 (7-18) mg/dL Creatinine 0.78 (0.55-1.02) mg/dL Estim Creat Clear Calc Not Reportable Estimated GFR > 60 (59 - ) Glucose 72 (70-99) mg/dL Calculated Osmolality 289 (285-295) mOsm/kg Calcium 9.4 (8.5-10.1) mg/dL Total Bilirubin 0.2 (0.00-1.00) mg/dL AST 19 (15-37) U/L ALT 23 (14-59) U/L Alkaline Phosphatase 103 (46-116) U/L Troponin I 6.0 (0.00-60.4) ng/L Total Protein 7.9 (6.4-8.2) g/dL Albumin 3.9 (3.4-5.0) g/dL Urine Color Light yellow (Yellow) Urine Appearance Clear (Clear) Urine pH 5.5 (5.0-8.0) Ur Specific [place] <= 1.005 L (1.010-1.020) Urine Protein Negative (Negative) Urine Glucose (UA) Negative (Negative) Urine Ketones Negative (Negative) Ur Blood (Man) Negative (Negative) Urine Nitrate Negative (Negative) Urine Bilirubin Negative (Negative) Urine Urobilinogen 0.2 (0.2-1.0) mg/dL Leukocyte Esterase Rfl Negative (Negative) JUANITO/UL Urine Test Negative Salicylates 0.9 L (2.8-20.0) mg/dL Urine Opiates Screen Negative (Negative) Urine Methadone Screen Negative (Negative) Acetaminophen < 2 L (10-30) ug/mL Ur Barbiturates Screen Negative (Negative) Ur Phencyclidine Scrn Negative (Negative) Ur Amphetamine Screen Negative (Negative) U Benzodiazepines Scrn Negative (Negative) Urine Cocaine Screen Negative (Negative) U Cannabinoids Screen Negative (Negative) Ethyl Alcohol 330 H* (0-6) mg/dL Imaging Data Attestation: I personally reviewed and interpreted this imaging study as follows: Radiologist's impression: chest x-ray is negative for acute process CT scan of the head and neck were negative for acute process ECG Data EKG #1: Attestation: I personally reviewed and interpreted this ECG as follows: ECG completion date: 07/23/24 ECG completion time: 18:23 EKG Interpretation: normal rate, sinus rhythm, junctional, no ectopy, non- specific ST changes, normal QRS, prolonged QT ( minimally) and NL axis Discharge Plan Discharge Clinical Impression: Alcoholic intoxication Qualifiers: Complication of substance-induced condition: uncomplicated Qualified Code(s): F 10.920 - Alcohol use, unspecified with intoxication, uncomplicated Patient Disposition: Home, Self-Care Condition: Improved Instructions: Abuse of Alcohol (ED) Patient Language: Monegasque Follow-up/Referrals: UNKNOWN,DOCTOR [Primary Care Provider] - Time of Disposition: 20:46
--- NOTE | 2024-07-23 17:02 | ECG_ITS ---
Test Date: 2024-07-23 18:30:56 Measurements Intervals [place] Rate: 71 P: -87 MT: 118 QRS: 55 QRSD: 86 T: 68 QT: 452 QTc: 494 Interpretive Statements ECTOPIC ATRIAL RHYTHM PROLONGED QT INTERVAL BASELINE ARTIFACT- I, II, III, AVR, AVL, AVF, V1-V6 ABNORMAL ECG No previous ECG available for comparison Electronically Signed On 07-26-2024 07:52:01 MAINFRAME APPLICATIONS DEVELOPER by Tirso Lopez D.O.
[2024-07-23 17:10] LABS: Basophils Absolute Auto 0.03 K/mm3 (0.00-0.10); Basophils Percent Auto 0.4 % (0.0-1.0); Eosinophils Absolute Auto 0.05 K/mm3 (0.02-0.50); Eosinophils Percent Auto 0.6 % (1.0-6.0); Hematocrit 46.5 % (35.0-49.0); Hemoglobin 15.1 g/dL (12.0-15.0); Immature Granulocyte Absolute 0.03 K/mm3 (0.00-0.00); Immature Granulocyte Percent A 0.4 % (0.0-0.0); Lymphocytes Absolute Auto 1.99 K/mm3 (1.10-4.50); Mean Corpuscular HGB Conc 32.5 g/dL (32-36); Mean Corpuscular Hemoglobin 30.9 pg (27.0-31.0); Mean Corpuscular Volume 95.1 fL (78.0-102.0); Mean Platelet Volume 9.1 fl (9.2-11.8); Monocytes Absolute Auto 0.54 K/mm3 (0.10-0.90); Monocytes Percent Auto 6.8 % (2.0-11.0); Neutrophils Absolute Auto 5.32 K/mm3 (1.70-7.20); Neutrophils Percent Auto 66.8 % (50.0-70.0); Platelet Count Result 258 K/mm3 (150-420); Red Blood Count 4.89 M/mm3 (4.20-5.40); Red Cell Distribution Width 12.7 % (11.6-14.4)
[2024-07-23 17:12] LABS: Alanine Aminotransferase 23 U/L (14-59); Albumin Level 3.9 g/dL (3.4-5.0); Alkaline Phosphatase 103 U/L (46-116); Anion Gap 10 mmol/L (4-12); Aspartate Amino Transferase 19 U/L (15-37); Bilirubin,Total 0.2 mg/dL (0.00-1.00); Blood Urea Nitrogen 9 mg/dL (7-18); Calcium 9.4 mg/dL (8.5-10.1); Carbon Dioxide 31 mmol/L (21-32); Chloride 100 mmol/L (98-108); Estimated Glomerular Filt Rate > 60; Glucose 72 mg/dL (70-99); Osmolality Calculated 289 mOsm/kg (285-295); Sodium 141 mmol/L (136-145); Total Protein 7.9 g/dL (6.4-8.2)
[2024-07-23] MEDS: SODIUM CHLORIDE 0.9% IV 1,000 ML 999 ML IV CONT (17:14)
[2024-07-23 17:18] LABS: Amphetamine Screen Urine Negative (Negative); Barbiturate Screen Urine Negative (Negative); Benzodiazepines Screen Urine Negative (Negative); Cannabinoid Screen Urine Negative (Negative); Cocaine Screen Urine Negative (Negative); Methadone Screen Urine Negative (Negative); Opiate Screen Urine Negative (Negative); Phencyclidine Screen Urine Negative (Negative)
[2024-07-23 17:19] LABS: Add Urine Microscopic? NO; Appearance Urine Clear (Clear); Bilirubin Urine Negative (Negative); Blood Urine Negative (Negative); Color Urine Light Yellow (Yellow); Glucose Urine UA Negative (Negative); Ketones Urine Negative (Negative); Leukocyte Esterase Ur Negative LEU/UL (Negative); Nitrate Urine Negative (Negative); Protein Urine Negative (Negative); Specific Grav Ur <= 1.005 (1.010-1.020); Urobilinogen Urine 0.2 mg/dL (0.2-1.0); pH Urine 5.5 (5.0-8.0)
[2024-07-23 17:22] LABS: Pregnancy On Board Control Positive; Urine Pregnancy Test Negative
--- OUTSIDE RECORDS SUMMARY | 2024-07-23 17:25 | XMS_ITS | CONTINUITY OF CARE DOCUMENT ---
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 Trace TR, moderate MD, and a possible small supracristal VSD. Clinical evalution is unremarkable. We will repeat an echocardiogram. Kaya Chaves MD Cardiology:In sinus rhythm. The EKG does not show any significant abnormality. Kaya Chaves MD Date Name Complete Echo HISTORY OF PROCEDURES Procedure Date Procedure Name Provider Procedure Notes S tatus SNOMED-CT: 546437578 Smoking Cessation Counseling Kaya Chaves MD completed SNOMED-CT: 23432780 Physical Exam, Performed: Pulse Exam of Foot Kaya Chaves MD completed EKG Kaya Chaves MD complet ed SNOMED-CT: 246301891 868900 Current Medications Documented Kaya Chaves MD completed SNOMED-CT: 07107789 Physical Exam, Performed: Pulse Exam of Foot Kaya Chaves MD completed SNOMED-CT: 772699163 934897 Current Medications Documented Kaya Chaves MD completed SNOMED-CT: 646194085 Smoking Cessation Counseling Kaya Chaves MD completed
[2024-07-23] MEDS: POTASSIUM CHLORIDE 20 MEQ ER TABLET 40 MEQ PO (17:26)
[2024-07-23 17:30] LABS: Salicylate 0.9 mg/dL (2.8-20.0)
[2024-07-23 17:31] LABS: Acetaminophen < 2 ug/mL (10-30)
[2024-07-23 17:33] LABS: Ethanol 330 mg/dL (0-6)
[2024-07-23 22:15] VITALS: BP 103/69; PULSE 73; RESP 18; TEMP 36.8; O2SAT 97
--- NOTE | 2024-07-23 22:25 | PC.NURSE ---
Pt discharged to home in the care of her mother.
== END 2024-07-23 22:25 | disposition home or self-care (01) ==
PROVIDERS: Emergency Provider Emergency Medicine
DX: F10.920 Alcohol use, unspecified with intoxication, uncomplicated (principal); F17.210 Nicotine dependence, cigarettes, uncomplicated; F12.90 Cannabis use, unspecified, uncomplicated
CPT/HCPCS: 36415; 70450; 71045; 72125; 80053; 80143; 80179; 80307; 81003; 81025; 82077; 84484; 85025; 93005; 96360; 99284; A9270; J7030

== ENCOUNTER 2024-10-29 16:13 | Emergency (ER) | payer OTHER, SELFPAY ==
--- NOTE | ~2024-10-29 | CT_ITS ---
CT brain wo con Ordering provider: Bhavesh Mendoza MD History: 34 years Female with . AMS/intoxicated . Comparison: None. Technique: CT of the head without contrast. FINDINGS: BRAIN PARENCHYMA AND CSF SPACES: No midline shift, mass effect or hemorrhage. The brain parenchyma a nd CSF spaces are otherwise normal. VISUALIZED PARANASAL SINUSES: Well aerated. MASTOIDS: Effusions seen in the left mastoid air cells and left middle ear. Effusion the right mastoi d air cells. BONES: The bones appear intact. SOFT TISSUES: Visualized nasopharynx is normal. Superficial soft tissues are normal. IMPRESSION: No acute intracranial findings. Bilateral mastoid air cells effusion with left middle ear effusion. Clinical correlation advised. Reviewed, dictated and finalized at location A. IMPRESSION: No acute intracranial findings. Bilateral mastoid air cells effusion with left middle ear effusion. Clinical co rrelation advised.
--- OUTSIDE RECORDS SUMMARY | 2024-10-29 16:15 | XMS_ITS | CONTINUITY OF CARE DOCUMENT ---
Author Name hira carmencitanerissa Address Unknown Organization [facility] Address 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 Trace TR, moderate OR, and a possible small supracristal VSD. Clinical evalution is unremarkable. We will repeat an echocardiogram. Kaya Chaves MD Cardiology:In sinus rhythm. The EKG does not show any significant abnormality. Kaya Chaves MD Date Name Complete Echo HISTORY OF PROCEDURES Procedure Date Procedure Name Provider Procedure Notes S tatus SNOMED-CT: 530713860 Smoking Cessation Counseling Kaya Chaves MD completed SNOMED-CT: 19134327 Physical Exam, Performed: Pulse Exam of Foot Kaya Chaves MD completed EKG Kaya Chaves MD complet ed SNOMED-CT: 954582681 808181 Current Medications Documented Kaya Chaves MD completed SNOMED-CT: 85303800 Physical Exam, Performed: Pulse Exam of Foot Kaya Chaves MD completed SNOMED-CT: 741959375 216984 Current Medications Documented Kaya Chaves MD completed SNOMED-CT: 069080327 Smoking Cessation Counseling Kaya Chaves MD completed
--- OUTSIDE RECORDS SUMMARY | 2024-10-29 16:15 | XMS_ITS | Data Portability ---
Author Organization [facility] [place] Address [address] [place] [address] Assessment Encounter Date Assessment Date Assessment LastModified by Organization Details LastModified Time 08/18/2020 08/18/2020 Annual gynecological exam performed. Patient will come back in a year unless there are new symptoms. Suggest Calcium with Vitamin D if not eating in diet. Patient advised to get annual flu shot. Recommend yearly physicals and preform monthly breast exams. Genetic testing is available for patients with family history of cancer. Engage in safe sexual practices, use condoms. Encouraged to have daily exercise. Avoid tobacco and illicit drugs, moderation of alcohol. If BMI greater than 25 dietary consult advised. If you have any questions please call or email. Additional precautionary measures were taken to minimize potential exposure to the Covid-19 virus during this patient s visit, including available hand tool filer upon arrive, temperature check and being asked a series of screening questions. All staff wore face coverings during this encounter, as well as provided additional cleaning and sanitizing of all surfaces, including countertops, pens, chairs, door handles, light switches, etc, prior to and following the patient s visit. [email or web address] Not available 08/18/2020 13:52:28 11/16/2021 11/16/2021 Annual gynecological exam performed. Patient will come back in a year unless there are new symptoms. Suggest Calcium with Vitamin D if not eating in diet. Patient advised to get annual flu shot. Recommend yearly physicals and preform monthly breast exams. Genetic testing is available for patients with family history of cancer. Engage in safe sexual practices, use condoms. Encouraged to have daily exercise. Avoid tobacco and illicit drugs, moderation of alcohol. If BMI greater than 25 dietary consult advised. If you have any questions please call or email. [email or web address] Not available 11/16/2021 12:41:50 02/20/2024 02/20/2024 Annual gynecological exam performed. Patient will come back in a year unless there are new symptoms. [email or web address] Not available 02/20/2024 14:08:37 Plan of Treatment Reminders Order Date Submit Date Provider Last Modified By Organization Details Last Modified Time Details Appointments None record ed. Lab None record ed. Referral None record ed. Procedures None record ed. Surgeries None record ed. Imaging None record ed. Medication Orders None record ed. Patient TargetsNo targets recorded. Patient InstructionsNo instructions recorded. Reason for Referral None Reported. Results Created Date Observation Date Name Description Value Unit Range Abnormal Flag Note LastModifiedBy Organization Detail LastModifiedTime 11/17/19 22 11/16/2021 IMAGE GUIDE D PAP AND HPV REGAR DLESS image guided Pap, HPV regardless of Pap result SEE RESULT S BELOW CASE REPOR T: Cytol ogy Gynec ologi chelle Repor t Case: [id number] Autho tiffany garcia Provi morgan: Nuzhat Young NP Colle cted: 11/16 1435 Order ing Locat ion: [place] [facility] Recei norris: 11/20 0803 First Scree n: Sammy Andrews ed, CT Speci men: Abdias artis Pap - Image d, Cervi x STATE MENT OF ADEQU ACY: Satis facto ry for evalu ation Trans forma tion zone compo nent prese nt FINAL DIAGN OSIS: Negat briana for Intra epith elial Teo carbajal or Deanna rapp (NIL) . Bina emanuel melani d by Sammy Andrews ed, CT on 022 at 7:51 PM ----- ----- ----- ----- ----- ----- ----- ----- ----- ----- ----- ----- ----- ----- ----- ----- ----- ---- HPV RESUL TS: HPV mRNA E6/E7 : No HPV mRNA Detec chery NOTE: This high risk HPV mRNA assay detec ts fourt een high- risk HPV types (16, 18, 31, 33, 35, 39, 45, 51, 52, 56, 58, 59, 66, 68) witho ut diffe renti ation . COMME NT: Note: This speci men was revie wed by a Cytot echno logis t and/o r Patho logis t (as indic ated in this repor t) after evalu ation using the Thinp rep Imagi ng Syste m. CLINI CHELLE INFOR MATIO N: Menst rual Statu s: LMP (if appli cable ): Clini chelle Histo ry/Pr eviou s Pap: Type of Neopl car (if appli cable ): Signi fican t Clini chelle Findi ngs: Other Histo ry: Hormo winston (if appli cable ): PAP EDUCA KRISTY L NOTE: The Pap Test is a scree chandra test with an inher ent false negat briana rate. Liqui d-bas ed sampl ing may decre ase, but will not elimi gulshan, false negat briana resul ts. A negat briana resul t does not precl ude the prese nce and/o r devel opmen t of disea se, since the prese nce of abnor mal cells in the sampl e depen ds on the locat ion of the lesio n and sampl ing techn ique. Mulu nued regul ar scree chandra is the best metho d of cance r preve ntion . If repor chery cytol ogic findi ng do not corre late with physi chelle and/o r histo rical findi ngs, furth er inves tigat ion is recom katerine d, as clini raudel morris nted. Not Available [facility] (Lab) [address], [place], [address], 11/22/2021 20:53:15 11/17/19 22 11/16/2021 TRICH OMONA S VAGIN XIOMARA (RRNA ) trichomonas vaginalis ribosomal RNA (rrna) Negati ve negati ve Not Available [facility] (Lab) [address], [place], [address], 11/22/2021 20:53:15 11/17/19 22 11/16/2021 CT/GC (MIKEY) , THINP REP VIAL chlamydia trachomatis, PCR Negati ve negati ve Not Available [facility] (Lab) [address] [facility], [place], [address], 11/22/2021 20:53:16 11/17/19 22 11/16/2021 CT/GC (MIKEY) , THINP REP VIAL neisseria gonorrhoeae, PCR Negati ve negati ve Not Available [facility] (Lab) [address] [facility] [address] [facility] [address], [place], [address], 11/22/2021 20:53:16 Result Notes None recorded. Problems Name Problem SNOMED Code Status Onset Date Resolution Date Notes Provider Name and Address Organization Details Recorded Time Osteopen ia 443955365 Active 2020 Nahomi lyons [facility] 13:17:52 Gastroes ophageal reflux disease 678193559 Active 2020 Nahomi lyons [facility] 13:18:20 Lupus erythema tosus 123172919 Active 2020 Nahomi lyons [facility] 13:18:44 Heart valve disorder 514856 Active 2020 Nahomi lyons [facility] 13:18:58 Clinical finding Completed 201808/18/2020 Encounte r for surveill ance of injectab le contrace ptive;Pr actice ID: 0001 Nahomi lyons [facility] 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 13:17:30 Postpart um care Completed 201108/18/2020 Routine postpart um follow-u p;Record ed Elsewher e: No Locat ion: [facility] S ource: EHR Reject Opener And Filler eleuterio: N Practi ce ID: 0001 Shane lable Time: 10:30:00 AM Nahomi lyons [facility] 13:17:09 Speciali zed medical examinat ion Completed 201008/18/2020 Routine gynecolo gical examinat ion;Prac adithya ID: 0001 Nahomi Miner [facility], [facility] 13:17:33 Pregnanc y test positive 487519465 Completed 201008/18/2020 Positive Pregnanc y Test;Pra ctice ID: 0001 Nahomi Miner [facility] 13:17:14 Primigra cinthia 026495536 Completed 201008/18/2020 Supervis ion of normal first pregnanc y;Practi ce ID: 0001 Nahomi Miner [facility] 13:17:19 Uterine size for dates discrepa ncy 993108723 Completed 201008/18/2020 UTERINE SIZE HERBERT-ANTE PAR;Prac adithya ID: 0001 Nahomi lyons, [facility] 13:17:40 Poor growth affectin g manageme nt 523439587 Completed 201008/18/2020 GROWTH POOR SGA;Prac adithya ID: 0001 Nahomi lyons [facility] 13:17:07 Prematur e rupture of membrane s - delivere d 162779458 Completed 201008/18/2020 Prematur e rupture of membrane s, delivere d;Practi ce ID: 0001 Nahomi lyons [facility] 13:17:17 Single live from singleto n pregnanc y 808515641 Completed 201008/18/2020 Mother with single liveborn ;Practic e ID: 0001 Nahomi Miner serena, [facility] 13:17:26 Family planning surveill ance Completed 201208/18/2020 Contrace ptive surveill ance, unspecif ied;Prac adithya ID: 0001 Nahomi lyons, [facility] 13:16:53 Screenin g for malignan t neoplasm of cervix Completed 201208/18/2020 Pap Smear;Pr actice ID: 0001 Nahomimary Miner serena, [facility] 13:17:24 Insertio n of intraute rine contrace ptive device Completed 201208/18/2020 INSERTIO N OF IUD;Prac adithya ID: 0001 Nahomimary lyons, [facility] 13:17:01 Pregnanc y test negative 441952630 Completed 201208/18/2020 Negative Pregnanc y Test;Pra ctice ID: 0001 Nahomi Miner null, [facility] 13:17:12 Irregula r intermen strual bleeding 30994514 Completed 201208/18/2020 Metrorrh agia;Pra ctice ID: 0001 Nahomi Miner null, [facility] 13:17:03 Dermatop hytosis of the perianal area Completed 201308/18/2020 Dermatop hytosis of groin and perianal area;Pra ctice ID: 0001 Nahomi Miner null, [facility] 13:16:48 Dyspareu munir 91687851 Completed 201308/18/2020 Dyspareu munir;Prac adithya ID: 0001 Nahomi lyons [facility] 13:16:50 Speciali zed medical examinat ion Completed 201408/18/2020 Other specifie d chlamydi al diseases ;Practic e ID: 0001 Nahomi lyons [facility] 13:17:35 Venereal disease screenin g Completed 201408/18/2020 Screenin g examinat ion for venereal disease; Practice ID: 0001 Nahomi lyons [facility] 13:17:42 Right lower quadrant pain 777043999 Completed 201508/18/2020 Right lower quadrant pain;Pra ctice ID: 0001 Nahomi lyons [facility] 13:17:21 Abdomina l pain 99786620 Completed 201508/18/2020 Unspecif ied abdomina l pain;Pra ctice ID: 0001 Nahomi lyons [facility] 13:16:36 Clinical finding Completed 201508/18/2020 Encounte r for initial prescrip tion of injectab le contrace p;Practi ce ID: 0001 Nahomi lyons [facility] 13:16:41 Finding of regulari ty of menstrua l cycle Completed 201708/18/2020 Irregula r menstrua tion, unspecif ied;Prac adithya ID: 0001 Nahomi lyons [facility] 13:16:56 Bone density finding 382563978 Completed 201808/18/2020 Oth disrd of bone density and structur e, unspecif ied site;Pra ctice ID: 0001 Nahomi lyons [facility] 1 13:16:39 Syphilis test finding 675221469 Completed 201508/18/2020 Encntr screen for infectio ns w sexl mode of transmis s;Record ed Elsewher e: No Locat ion: [facility] S ource: EHR Reject Opener And Filler eleuterio: N Kenji ce ID: 0001 Shane lable Time: 02:30:00 PM Nahomi Miner [facility] 1 13:17:[address] Concept Completed 201808/18/2020 Encntr for routine child health exam w/o abnormal findings ;Recorde d Elsewher e: No Locat ion: [facility] S ource: EHR Reject Opener And Filler eleuterio: N Kenji ce ID: 0001 Shane lable Time: 05:15:00 PM Nahomi Miner [facility] 13:17:28 Contrace ptive sheath status 765107287 Completed 201508/18/2020 Encounte r for initial prescrip tion of other contrace ptives;R ecorded Elsewher e: No Locat ion: [facility] N Kenji ce ID: 0001 Shane lable Time: 01:45:00 PM Nahomi Miner [facility] 1 13:16:46 Infectio n screenin g Completed 201508/18/2020 Encounte r for screenin g for oth infec/pa rastc diseases ;Recorde d Elsewher e: No Locat ion: [facility] S ource: EHR Reject Opener And Filler eleuterio: N Kenji ce ID: 0001 Shane lable Time: 02:30:00 PM Nahomi Miner [facility] 13:16:58 Problem Notes None recorded. Procedures Surgical History Date Name Laterality Status Provider Name and Address Organization Details Recorded Time 2 Date of Last Pap Smear completed Nahomi Miner [facility] 11/16/2021 12:17:17 8 Colposcopy completed [facility] 08/18/2020 13:20:56 8 Colposcopy completed [facility] 08/18/2020 13:30:40 0 repair of cleft palate completed [facility] 08/18/2020 13:27:58 9 operative procedure on foot completed [facility] 11/16/2021 12:18:35 1 repair of cleft palate completed [facility] 08/18/2020 13:27:37 0 repair of cleft palate completed [facility] 08/18/2020 13:28:16 Imaging Results None recorded. Procedure Notes None recorded. Medical Equipment None Reported. Allergies No known drug allergies Medications Name Sig Start Date Stop Date Status Note LastModified by Organization Details LastModified Time Mirena 21 mcg/24 hr (up to 8 years) 52 mg intrauter ine device insert 1 kit by vaginal route every 1 for 5 months 2019 active inserted 0 and need removed 5 Not Available Not Available Not Available miconazol e nitrate 2 % topical cream apply by topical route 2 times every day to the affected area(s) in the morning and evening 12/13 completed Prescrib ed Elsewher e: No Locat ion: [facility] Narda odify By: steve hernandez DateTime : 06/30/19 14 11:15:00 AM Not Available Not Available Not Available Diflucan 150 mg tablet take 1 tablet by oral route once 11/11 completed Prescrib ed Elsewher e: No Locat ion: [facility] M odify By: lopez hernandez DateTime : 01/28/20 18 11:30:05 AM Not Available Not Available Not Available Metrogel Vaginal 0.75 % (37.5 mg/5 gram) insert 1 applicat orful by vaginal route every day at bedtime for 5 nights 07/15 completed Prescrib ed Elsewher e: No Locat ion: [facility] odify By: conor martinez DateTime : 04/22/20 16 12:07:13 PM Not Available Not Available Not Available Depo-Prov era 150 mg/mL intramusc ular suspensio n inject 1 millilit er by intramus cular route every 3 months 08/18 completed Prescrib ed Elsewher e: No Locat ion: [facility] odify By: sasha hernandez DateTime : 06/01/20 19 02:46:55 PM Not Available Not Available Not Available Mapap (acetamin ophen) 500 mg capsule take 2 capsule by oral route every 6 hours as needed 04/16 completed Prescrib ed Elsewher e: Yes Loca tion: [facility] odify By: conor Encounte r DateTime : 10/28/19 13 04:00:00 PM Not Available Not Available Not Available Flagyl 500 mg tablet take 1 tablet (500MG) by oral route 2 times every day 07/01 completed Prescrib ed Elsewher e: No Locat ion: [facility] odify By: eedmonds Encount er DateTime : 03/28/20 11 01:40:38 PM Not Available Not Available Not Available Vitamin D2 1,250 mcg (50,000 unit) capsule take 1 capsule by oral route every week 11/16 completed Prescrib ed Elsewher e: Yes Loca tion: [facility] odify By: conor Encounte r DateTime : 09/08/19 20 02:15:00 PM Not Available Not Available Not Available Depo-Prov era 150 mg/mL intramusc ular syringe inject 1 millilit er by intramus cular route every 3 months 04/03 completed Prescrib ed Elsewher e: No Locat ion: [facility] odify By: sasha hernandez DateTime : 01/04/20 17 02:36:03 PM Not Available Not Available Not Available Vitals Date Recorded Body height Body mass index (BMI) Body weight Systolic blood pressure Diastolic blood pressure Provider Name and Address Organization Details Last Updated DateTime 08/18/2020 146.05 cm 26.8 kg/m2 07731.64 g 130 mm[Hg] 87 mm[Hg] Nahomi Miner [facility] 1 13:15:48 Date Recorded Body height Body mass index (BMI) Body weight Systolic blood pressure Diastolic blood pressure Provider Name and Address Organization Details Last Updated DateTime 11/16/2021 146.05 cm 21.1 kg/m2 87112.64 g 127 mm[Hg] 84 mm[Hg] Nahomi Miner [facility] 2 12:16:31 Date Recorded Body weight Systolic blood pressure Diastolic blood pressure Systolic blood pressure Diastolic blood pressure Provider Name and Address Organization Details Last Updated DateTime 3 04897.8 g 161 mm[Hg] 104 mm[Hg] 140 mm[Hg] 90 mm[Hg] Nina Mccauley [facility] [address], [place], [address], [facility] 3 17:20:56 Date Recorded Body height Body mass index (BMI) Body weight Systolic blood pressure Diastolic blood pressure Provider Name and Address Organization Details Last Updated DateTime 02/20/2024 146.05 cm 17.5 kg/m2 91429.01 g 132 mm[Hg] 87 mm[Hg] Leilani Kiran [facility] 4 14:08:57 Social History Question Answer Notes LastModified by Organizat ion Details LastModified Time Tobacco Smoking Status Current Every Day Smoker Nahomi Miner [facility], [facility] 08/18/2020 13:27:01 What Is Your Level Of Alcohol Consumption? Occasional Information not available 08/18/2020 If You Are , What Was Your Level Of Alcohol Consumption Prior To ? Occasional [email or web address] Information not available 08/18/2020 Are You Blind Or Do You Have Difficulty Seeing? No [email or web address] Information not available 08/18/2020 What Is Your Level Of Caffeine Consumption? Occasional [email or web address] Information not available 08/18/2020 In The 14 Days Before Symptom Onset, Have You Had Close Contact With A Laboratory-confir med COVID-19 While That Case Was Ill? No [email or web address] Information not available 08/18/2020 In The 14 Days Before Symptom Onset, Have You Had Close Contact With A Person Who Is Under Investigation For COVID-19 While That Person Was Ill? No [email or web address] Information not available 08/18/2020 Have You Been To An Area Known To Be High Risk For COVID-19? No [email or web address] Information not available 08/18/2020 Are You Deaf Or Do You Have Serious Difficulty Hearing? No [email or web address] Information not available 08/18/2020 What Type Of Diet Are You Following? REGULAR [email or web address] Information not available 08/18/2020 Have You Ever Been Counseled For Unhealthy Alcohol Use? No [email or web address] Information not available 08/18/2020 Do You Use Your Seat Belt Or Car Seat Routinely? Yes [email or web address] Information not available 08/18/2020 Do You Have Smoke And Carbon Monoxide Detectors In Your Home? Yes [email or web address] Information not available 08/18/2020 Do You Feel Stressed (tense, Restless, Nervous, Or Anxious, Or Unable To Sleep At Night)? [id number] [email or web address] Information not available 08/18/2020 Do You Use Any Illicit Or Recreational Drugs? No [email or web address] Information not available 08/18/2020 Do You Use Sunscreen Routinely? Yes [email or web address] Information not available 08/18/2020 Has Tobacco Cessation Counseling Been Provided? No [email or web address] Information not available 08/18/2020 Do You Or Have You Ever Used Any Other Forms Of Tobacco Or Nicotine? No [email or web address] Information not available 08/18/2020 Sex: Unknown Functional Status Question Answer Note LastModified by Organizat ion Details LastModified Time Do you have difficulty walking or climbing stairs? No [email or web address] Information not available 11/16/2021 Are you able to walk? YESWOREST [email or web address] Information not available 08/18/2020 Are you able to care for yourself? Yes [email or web address] Information not available 11/16/2021 Do you have difficulty dressing or bathing? No [email or web address] Information not available 11/16/2021 What is your exercise level? Occasional [email or web address] Information not available 08/18/2020 Mental Status None recorded. Family History Relationship Description Onset Age of this Age Resolved Age Notes LastModified by Organization Details LastModified Time Paternal Grandmother History of Hodgkin lymphoma [email or web address] Not available 08/18 13:23:40 Paternal Grandfather Malignant neoplasm of lung [email or web address] Not available 08/18 13:23:55 Maternal Uncle Diabetes mellitus Not available 08/18 13:24:06 Maternal Grandmother Malignant neoplasm of brain [email or web address] Not available 08/18 13:24:28 Maternal Grandmother Uterine fibroid polyp [email or web address] Not available 08/18 13:26:04 Notes:Maternal grandmother: Uterine Fibroids Maternal uncle: Diabetes mellitus Paternal grandfather: Cancer, lung Paternal grandmother: Hodgkin's Disease Medical History Condition Response Allergies (Food, seasonal, environmental ) N Other Y Breast Cancer N Drug/Latex Allergies/Reactions N Blood Transfusion N Lung Disease N Dermatologic Disorders N Defects or Inherited Disease N Breast Problem N Gestational Diabetes N Hematologic disorders N Anesthesia Complications N History of STI N Deep Vein Thrombosis N Polycystic ovary syndrome N Anxiety Disorder Y Autoimmune disease Y Arthritis N Infertility N Polyps N Acid Reflux (GERD) Y History of abnormal pap Y Cancer N Stroke N Varicosities N Neurologic/Epilepsy N Endometriosis N High Cholesterol N Headaches N Fibromyalgia N Kidney Disease N Heart Problems Y Kidney or Bladder Problems N Thyroid Problems Y GI Problems Y Eating Disorder N Anemia N Art (IVF or FET) N Psychiatric Illness N Ovarian Cancer N Diabetes N Pulmonary (TB, Asthma) N Hepatitis/Liver Disease N No Past Medical History N Eczema N Urinary Tract Infection N Abuse/Domestic Violence N Asthma N Trauma/Violence N Depression/ depression Y Heart Disease Y Pre-Eclampsia N Hypertension N Osteoporosis Y Thrombophilias N Gynecological History Statement/Question Response Abnormal Pap Y Date of LMP 08/11/2020 STIs/STDs N Colposcopy 07/15/2017 Date of Last Pap Smear 11/16/2021 Current Control Method IUD LMP Approximate 06/23/2017 Obstetrics History GPAL:G 1 P 0 1 0 1 Type Value Premature 1 Living 1 Total 1 Past Encounters Encounter ID Performer Location Encounter Start Date Encounter Closed Date Diagnosis/Indication Diagnosis SNOMED-CT Code Diagnosis ICD10 Code Diagnosis Note [id number] Nuzhat Zhang [facility] [address],[place] [address] 08/18/2020 12:52:56 08/18/2020 14:27:11 Gynecologic examination 46450940 Z01.419 [id number] Nuzhat Zhang [facility] [address],[place] [address] 11/16/2021 12:04:02 11/16/2021 12:44:03 Gynecologic examination 84580028 Z01.419 encouraged to take thyroid meds daily as it will help fatigue [id number] VIOLET Tesfaye [facility] [address],[place] [address] 02/13/2023 15:25:50 02/14/2023 16:33:04 Anxiety 66292452 F41.9 patient requesting immediate evaluation for anxiety symptomswe agreed to defer WWE todayinfor mation given on [facility] - they do not have any way to get there as they were dropped off hereRN Latasha gave patient and patients mother a ride to [facility] ED per patient request. Precaution s reviewed with patient. Recommend f/u for WWE Time spent in visit is a total of 20 mins with at least 50% of visit consisting of counseling and review of plan of care. [id number] MERCEDES DE LA CRUZ MD [facility] [address],[place] [address] 02/20/2024 14:00:40 02/20/2024 14:52:27 Gynecologic examination 50378927 Z01.419 [facility]- Cervical cancer screening: Pap smear obtained today, will follow up on the results with the patient as they become available- Breast cancer screening: mammogram not indicated- Colon cancer screening: does not qualify- STD testing: desires- hereditary cancer screening: does not qualify for testing Health Concerns Section Related Observation LastModified by Organization Detai ls LastModified Time None Recorded Concern Status LastModified by Organization Details LastModified Time None Recorded Advance Directives Directive None Recorded Payers Encounter Date Sequence Insurance Name Policy Number Policy Ferrara Covered Member ID Ferrara Member ID Guarantor Name 08/18/2020 1 [facility] - DOS PRIOR TO 2020 (MEDICAID REPLACEMENT - HMO) Emperatriz A Mcneill [id number] Emperatriz A Mcneill 11/16/2021 1 [facility] (MEDICARE REPLACEMENT/AD VANTAGE - HMO) Emperatriz A Mcneill [id number] Emperatriz A Mcneill 02/13/2023 1 [facility] (MEDICARE REPLACEMENT/AD VANTAGE - HMO) Emperatriz A Mcneill [id number] Emperatriz A Mcneill 02/20/2024 1 [facility] (MEDICARE REPLACEMENT/AD VANTAGE - HMO) Emperatriz A Mcneill [id number] Emperatriz A Mcneill Notes Date Note Type Note Provider Name and Address Organization Details Recorded Time 08/18/2020 text/html Annual GYNReport ed bypatient.Menstrual cycle:Normal menses Urinary symptoms:No hematuria; No incontinence Vulva:No genital lesion Vagina:Normal vaginal discharge Breast:No breast pain; No breast lump; No nipple discharge Current Contraception:Satisfi ed with current contraception; Intrauterine device (iud) Sexual complaints:No sexual complaints; No pain during intercourse; Normal libido Menopausal Symptoms:No menopausal symptoms; Normal vaginal lubrication Psychological symptoms:No depression; No anxiety; No PMDDNotes:has had more anxiety this year, [place], usually walks everywhere, mom drives her when she needs to hasn't been out much but trying now again that the weather is warmer, has gained some weight, no complaints with aren Zhang, FIORELLA [address], [place], [address], [facility] 08/18/2020 13:53:00 11/16/2021 text/html Annual GYNReport ed bypatient.History:no gynecologic complaints Breast:No breast pain; No breast lump; No nipple discharge Current Contraception:Intraut erine device (iud) Sexual complaints:No sexual complaints; No pain during intercourse; Normal libido Menopausal Symptoms:No menopausal symptoms; Normal vaginal lubrication Psychological symptoms:No depression; No anxiety; No PMDD Preventive measures:Encourage self breast examination; Encourage regular exercise; Encourage no tobacco useNotes:diagnosed with hypothyroid not taking meds daily Nuzhat Zhang CNM [address], [place], [address], [facility] 11/16/2021 12:43:51 02/13/2023 text/html 32yopresents for [employer] - she is here with her mother (mother was out of room to ask pt questions)patient states she is struggling mentally due to the loss of a relationship and family issuespt states she is very anxious, requesting to be seen immediately by a psychiatristshe denies any thoughts of harming herself or othersshe lives with her boyfriend in an apartmentreports feeling safe at home, feels safe with her motherher and her mother were dropped off here today VIOLET Tesfaye [address], [place], [address], [facility] 02/14/2023 13:50:16 02/20/2024 text/html Presents today f or her annual well-woman exam. Denies abnormal vaginal discharge. She is sexually active and denies dyspareunia. She is using Mirena IUD (placed 2019) for contraception, and she states that she is satisfied with this method. She has not noticed any changes or masses in her breasts. Amenorrheic with IUD. MERCEDES DE LA CRUZ MD [address], [place], [address], [facility] 02/20/2024 14:38:14 OBGyn Episode Ob Episode Information Episode Created Date Number of Fetuses Patient Bloodtype Patient rh Status Prepregnancy Weight lbs Domestic Partner Domestic Partner Phone Father Name Rand Tacker Status 08/18/19 21 1 CLOSED Fetus Data First Name Last Name Admitted to NICU Weight (g) Sex Living Outcome Pediatric Complications Fetus ID Race Codes Race Delivery Type 2182.68 [id number] M Prematur e [id number] Vaginal Delivery Mark Calculation Initial Mark Date Initial Exam Date Initial Exam Provider Initial Ultrasound Date Last Menstrual Period Date Ultra Sound Weeks Gestation 0 Eighteen To Twenty Week Mark Update Ultra Sound Date Fundal Height At Umbil Quickening Date Ultra Sound Latest Weeks Gestation Final Mark Confirmed By Final Mark Confirmed Date Final Mark Date Ultra Sound Latest Days Gestation 0 0 Menstrual History Last Menstrual Date Menses Monthly On Bcp Conception Prior Menses Frequency Hcg Plus Date Menarche Onset Age Delivery Information Delivery Date Delivery Type Labor Anesthesia Weeks Gestation Incision Type Labor Labor Length Hrs Delivered By Post Complications Tubal Sterilization Discharge Date Comments 1 34 true Discharge Information Feeding Method Contraceptive Method Maternal HG B and HCT Levels
[2024-10-29 16:17] VITALS: BP 113/59; PULSE 93; RESP 18; TEMP 36.6; O2SAT 98
--- NOTE | 2024-10-29 16:28 | ED.GENADULT ---
HPI - General Adult General Chief complaint: Unspecified Stated complaint: intoxicated, face down in park Related Data Allergies Allergy/AdvReac Type Severity Reaction Status Date / Time No Known Allergies Allergy Verified 07/23/24 16:32 [facility] Past Medical History Medical History Chromosome abnormality Hemorrhoids Surgical History Surgical History Cleft palate Social History Social History Smoking status: Current every day smoker Tobacco type: cigarettes Alcohol intake: current Alcohol use details: daily beer and hard liquor Substance use: current Substance use type: marijuana Living arrangements: with family Gender identity (if verbalized by the patient): Female Course Vital Signs Vital signs: Vital Signs Temperature 36.6 C 10/29/24 16:17 Pulse Rate 93 10/29/24 16:17 Respiratory Rate 18 10/29/24 16:17 Blood Pressure 113/59 L 10/29/24 16:17 Pulse Oximetry 98 10/29/24 16:17 Oxygen Delivery Room Air 10/29/24 16:17 Temperature 36.6 C 10/29/24 16:17 Pulse Rate 93 10/29/24 16:17 Respiratory Rate 18 10/29/24 16:17 Blood Pressure 113/59 L 10/29/24 16:17 Pulse Oximetry 98 10/29/24 16:17 Oxygen Delivery Room Air 10/29/24 16:17 Medical Decision Making Vital Signs Vital Signs: Vital Signs Temperature 36.6 C 10/29/24 16:17 Pulse Rate 93 10/29/24 16:17 Respiratory Rate 18 10/29/24 16:17 Blood Pressure 113/59 L 10/29/24 16:17 Pulse Oximetry 98 10/29/24 16:17 Oxygen Delivery Room Air 10/29/24 16:17 Temperature 36.6 C 10/29/24 16:17 Pulse Rate 93 10/29/24 16:17 Respiratory Rate 18 10/29/24 16:17 Blood Pressure 113/59 L 10/29/24 16:17 Pulse Oximetry 98 10/29/24 16:17 Oxygen Delivery Room Air 10/29/24 16:17 Discharge Plan Discharge Clinical Impression: Anxiety Patient Disposition: Home Condition: Stable Instructions: Antibiotic Form Patient Language: Kyrgyz Follow-up/Referrals: Nelson Erickson DO [Primary Care Provider] -
--- NOTE | 2024-10-29 16:29 | ED.ALCOHOL ---
HPI - Alcohol General Chief Complaint: Unspecified Stated Complaint: intoxicated, face down in park Source: patient and EMS Mode of arrival: ambulatory Limitations: intoxication ( alcohol) History of Present Illness HPI narrative: patient is a 34-year-old female that we have seen in the emergency room in the past for similar scenario and she is intoxicated with alcohol at this time. She gets stressed and then has alcohol consumption is a that are moderate. She was found in the park face down with no apparent injuries. She does not want any testing done except what we discussed about it getting a CT scan of the head. 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 Chronic alcohol use: Yes Previous visits for alcohol intoxication: Yes Recent trauma: No Associated symptoms: denies other symptoms Treatments prior to arrival: none Related Data Allergies Allergy/AdvReac Type Severity Reaction Status Date / Time No Known Allergies Allergy Verified 07/23/24 16:32 Review of Systems Review of Systems: All systems reviewed & are unremarkable except as noted in HPI and below Constitutional: Constitutional: Reports no additional constitutional complaints Eyes: Eyes: Reports no additional eye complaints ENT: Reports system reviewed and no additional complaints, except as documented Cardiovascular: Cardiovascular: Reports no additional cardiovascular complaints Respiratory: Respiratory: Reports no additional respiratory complaints Gastrointestinal: Gastrointestinal: Reports no additional gastrointestinal complaints Genitourinary: Genitourinary: Reports no additional female genitourinary complaints Musculoskeletal: Musculoskeletal: Reports no additional musculoskeletal complaints Integumentary/Breasts: Skin/Breast: Reports system reviewed and no additional complaints, except as docu Neurologic: Reports system reviewed and no additional complaints, except as documented Psychiatric: Psychiatric: Reports no additional psychiatric complaints Endocrine: Endocrine: Reports no additional endocrine complaints Hematologic/Lymphatic: Hematologic/Lymphatic: Reports no additional hematologic/lymphatic complaints Allergic/Immunologic: Allergic/Immunologic: Reports no additional allergic/immunologic complaints [facility] Past Medical History Medical History Chromosome abnormality Hemorrhoids Surgical History Surgical History Cleft palate Social History Social History Smoking status: Current every day smoker Tobacco type: cigarettes Alcohol intake: current Alcohol use details: daily beer and hard liquor Substance use: current Substance use type: marijuana Living arrangements: with family Gender identity (if verbalized by the patient): Female Exam Const: General: healthy appearing Nutritional Appearance: well nourished Orientation/consciousness: patient oriented x3 Limitations: no limitations HENMT: Head: normal to inspection Ears: external ears normal Face/Nose/Sinus: Normal external nose present Eyes: Conjunctivae: conjunctivae normal Pupils: Equal, round and reactive pupils present EOM: EOMs intact bilaterally Neck: Neck: normal visual inspection Chest: Chest palpation & inspection: normal inspection of the chest Resp: Effort & Inspection: normal respiratory effort and not labored Auscultation: clear to auscultation bilaterally and no crackles Cardio: Rate: regular rate Rhythm: regular rhythm Heart sounds: no murmurs GI: Inspection: non-distended GI Palp: Yes Soft to palpation and No Tenderness to palpation present (GI) Auscultation: normal bowel sounds : General: Yes bladder normal to palpation Back/Spine/Pelvis: Back: no CVA tenderness Skin: General skin exam: normal color Rashes: no rashes Wounds: no wounds Neuro: General: patient oriented x3, moves all extremities, no meningeal signs, no focal motor deficits and CN's II-XI intact bilaterally Cranial nerves: Yes Nystagmus not present Speech: normal speech Other: Fast exam is negative, GCS is 15, NIH is 0 Extrem: General: normal to inspection Psych: Mental Status: mental status grossly normal Affect: normal affect Attitude: cooperative Other: no suicide or homicide ideations Course Vital Signs Vital signs: Vital Signs Temperature 36.6 C 10/29/24 16:17 Pulse Rate 93 10/29/24 16:17 Respiratory Rate 18 10/29/24 16:17 Blood Pressure 113/59 L 10/29/24 16:17 Pulse Oximetry 98 10/29/24 16:17 Oxygen Delivery Room Air 10/29/24 16:17 Temperature 36.6 C 10/29/24 16:17 Pulse Rate 93 10/29/24 16:17 Respiratory Rate 18 10/29/24 16:17 Blood Pressure 113/59 L 10/29/24 16:17 Pulse Oximetry 98 10/29/24 16:17 Oxygen Delivery Room Air 10/29/24 16:17 MDM - Alcohol MDM Narrative Medical decision making narrative: patient is a 34-year-old female with alcohol intoxication at this time due to life stressors. She did not want any testing done but I did discuss with her about at least getting a CT scan of the head and she agreed. She has family that can come and get her and take her home. Imaging Data Attestation: I personally reviewed and interpreted this imaging study as follows: Radiologist's impression: ITS Impressions Head CT 10/29/24 16:47 IMPRESSION: No acute intracranial findings. Bilateral mastoid air cells effusion with left middle ear effusion. Clinical correlation advised. Discharge Plan Discharge Clinical Impression: Alcohol intoxication Qualifiers: Complication of substance-induced condition: uncomplicated Qualified Code(s): F10.920 - Alcohol use, unspecified with intoxication, uncomplicated Sinusitis Qualifiers: Sinusitis location: unspecified location Chronicity: subacute Qualified Code(s): J01.90 - Acute sinusitis, unspecified Patient Disposition: Home Condition: Stable Instructions: Antibiotic Form, Sinusitis (ED) Patient Language: Luxembourgish Prescriptions: New amoxicillin-pot clavulanate 875-125 mg tablet 1 tablet PO BID 10 Days Qty: 20 0RF Follow-up/Referrals: Nelson Erickson DO [Primary Care Provider] - Time of Disposition: 17:23
--- OUTSIDE RECORDS SUMMARY | 2024-10-29 16:39 | XMS_ITS | CONTINUITY OF CARE DOCUMENT ---
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 Trace TR, moderate VT, and a possible small supracristal VSD. Clinical evalution is unremarkable. We will repeat an echocardiogram. Kaya Chaves MD Cardiology:In sinus rhythm. The EKG does not show any significant abnormality. Kaya Chaves MD Date Name Complete Echo HISTORY OF PROCEDURES Procedure Date Procedure Name Provider Procedure Notes S tatus SNOMED-CT: 932298956 Smoking Cessation Counseling Kaya Chaves MD completed SNOMED-CT: 19039486 Physical Exam, Performed: Pulse Exam of Foot Kaya Chaves MD completed EKG Kaya Chaves MD complet ed SNOMED-CT: 977114063 738384 Current Medications Documented Kaya Chaves MD completed SNOMED-CT: 98248075 Physical Exam, Performed: Pulse Exam of Foot Kaya Chaves MD completed SNOMED-CT: 293781589 401444 Current Medications Documented Kaya Chaves MD completed SNOMED-CT: 046646604 Smoking Cessation Counseling Kaya Chaves MD completed
--- NOTE | 2024-10-29 16:52 | PC.NURSE ---
laying on cot, playing with cell phone. awaiting ct results.
[2024-10-29 17:33] VITALS: BP 110/76; PULSE 89; RESP 18; TEMP 36.8; O2SAT 98
--- NOTE | 2024-10-29 17:33 | PC.NURSE ---
pt attempting to call mother for a ride home.
== END 2024-10-29 17:33 | disposition home or self-care (01) ==
LOC: CHSED 16:36
PROVIDERS: Emergency Provider Emergency Medicine; PCP Family Medicine
DX: F10.920 Alcohol use, unspecified with intoxication, uncomplicated (principal); J01.90 Acute sinusitis, unspecified; F17.210 Nicotine dependence, cigarettes, uncomplicated
CPT/HCPCS: 70450; 99284

== ENCOUNTER 2024-11-03 19:19 | Emergency (ER) | payer OTHER, SELFPAY ==
[2024-11-03] VITALS (8 sets, daily range): BP systolic 106–118; BP diastolic 66–73; PULSE 87–95; RESP 14–22; TEMP 36.6; O2SAT 91–100
--- NOTE | ~2024-11-03 | CT_ITS ---
CT brain wo con Ordering provider: Robin Walter MD History: 34 years Female with . ams, intoxicated . Comparison: October 29, 2024. Technique: CT of the head without contrast. Radiation reduction technique utilized.The dose-length pr oduct was 605.33 mGy-cm. FINDINGS: BRAIN PARENCHYMA AND CSF SPACES: No midline shift, mass effect or hemorrhage. The brain parenchyma a nd CSF spaces are otherwise normal. VISUALIZED PARANASAL SINUSES: Left maxillary sinus disease. Bilateral ethmoid sinus disease. Otherwis e, Well aerated. MASTOIDS: Bilateral mastoid air cells effusion. BONES: The bones appear intact. SOFT TISSUES: Visualized nasopharynx is normal. Superficial soft tissues are normal. IMPRESSION: No acute intracranial findings. Reviewed, dictated and finalized at location A.
--- OUTSIDE RECORDS SUMMARY | 2024-11-03 19:21 | XMS_ITS | CONTINUITY OF CARE DOCUMENT ---
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 Trace TR, moderate VA, and a possible small supracristal VSD. Clinical evalution is unremarkable. We will repeat an echocardiogram. Kaya Chaves MD Cardiology:In sinus rhythm. The EKG does not show any significant abnormality. Kaya Chaves MD Date Name Complete Echo HISTORY OF PROCEDURES Procedure Date Procedure Name Provider Procedure Notes S tatus SNOMED-CT: 185357273 Smoking Cessation Counseling Kaya Chaves MD completed SNOMED-CT: 52430892 Physical Exam, Performed: Pulse Exam of Foot Kaya Chaves MD completed EKG Kaya Chaves MD complet ed SNOMED-CT: 090294344 869041 Current Medications Documented Kaya Chaves MD completed SNOMED-CT: 68082389 Physical Exam, Performed: Pulse Exam of Foot Kaya Chaves MD completed SNOMED-CT: 415415678 445074 Current Medications Documented Kaya Chaves MD completed SNOMED-CT: 211739981 Smoking Cessation Counseling Kaya Chaves MD completed
--- OUTSIDE RECORDS SUMMARY | 2024-11-03 19:21 | XMS_ITS | Data Portability ---
Author Organization [facility] Ary Address [address] [place] [address] Assessment Encounter Date Assessment Date Assessment LastModified [...] this patient s visit, including available hand wound care technician upon arrive, temperature check and being asked a series of screening questions. All staff wore face coverings during this encounter, as well as provided additional cleaning and sanitizing of all surfaces, including countertops, pens, chairs, door handles, light switches, etc, prior to and following the patient s visit. [email or web address] Not available 08/18/2020 13:52:28 11/16/2021 11/16/2021 Annual [...] have any questions please call or email. [email or web address] Not available 11/16/2021 12:41:50 02/20/2024 02/20/2024 Annual [...] Teo carbajal or Deanna rapp (NIL) . Elect rere emanuel melani d by Sammy Andrews ed, [...] as clini raudel morris nted. Not Available [facility] (Lab) [address], [place], [address], 11/22/2021 20:53:15 11/17/19 22 11/16/2021 TRICH OMONA S VAGIN XIOMARA (RRNA ) trichomonas vaginalis ribosomal RNA (rrna) Negati ve negati ve Not Available [facility] (Lab) [address], [place], [address], 11/22/2021 20:53:15 11/17/19 22 11/16/2021 CT/GC (MIKEY) , THINP REP VIAL chlamydia trachomatis, PCR Negati ve negati ve Not Available [facility] (Lab) [address], [place], [address], 11/22/2021 20:53:16 11/17/19 22 11/16/2021 CT/GC (MIKEY) , THINP REP VIAL neisseria gonorrhoeae, PCR Negati ve negati ve Not Available [facility] (Lab) [address], [place], [address], 11/22/2021 20:53:16 Result Notes None recorded. Problems Name Problem SNOMED Code Status Onset Date Resolution Date Notes Provider Name and Address Organization Details Recorded Time Osteopen ia 922453538 Active 2020 Nahomi lyons [facility] 13:17:52 Gastroes ophageal reflux disease 358513246 Active 2020 Nahomi lyons [facility] 13:18:20 Lupus erythema tosus 669416878 Active 2020 Nahomi lyons [facility] 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 13:18:58 Clinical finding Completed 201808/18/2020 Encounte r for surveill ance of injectab le contrace ptive;Pr actice ID: 0001 Nahomi lyons [facility] 13:16:[address] Concept Completed 201808/18/2020 Encntr for satellite dish technician exam (general ) (routine ) w/o abn findings ;Practic e ID: 0001 Nahomi lyons [facility] 13:17:30 Postpart um care Completed 201108/18/2020 Routine postpart um follow-u p;Record ed Elsewher e: No Locat ion: [facility] S ource: EHR Aligner Barrel And Receiver eleuterio: N Practi ce ID: 0001 Shane lable Time: 10:30:00 AM Nahomi lyons [facility] 13:17:09 Speciali zed medical examinat ion Completed 201008/18/2020 Routine gynecolo gical examinat ion;Prac adithya ID: 0001 Nahomi Miner [facility] 13:17:33 Pregnanc y test positive [id number] Completed 201008/18/2020 Positive Pregnanc y Test;Pra ctice ID: 0001 Nahomi Miner [facility] 13:17:14 Primigra cinthia 015436644 Completed 201008/18/2020 Supervis ion of normal first pregnanc y;Practi ce ID: 0001 Nahomi Miner [facility] 13:17:19 Uterine size for dates discrepa ncy 084103714 Completed 201008/18/2020 UTERINE SIZE HERBERT-ANTE PAR;Prac adithya ID: 0001 Nahomi Miner [facility] 13:17:40 Poor growth affectin g manageme nt 488133623 Completed 201008/18/2020 GROWTH POOR SGA;Prac adithya ID: 0001 Nahomi Miner [facility] 13:17:07 Prematur e rupture of membrane s - delivere d 782878621 Completed 201008/18/2020 Prematur e rupture of membrane s, delivere d;Practi ce ID: 0001 Nahomi Miner [facility], [facility] 13:17:17 Single live from singleto n pregnanc y [id number] Completed 201008/18/2020 Mother with single liveborn ;Practic e ID: 0001 Nahomi Miner serena, [facility] 13:17:26 Family planning surveill ance Completed 201208/18/2020 Contrace ptive surveill ance, unspecif ied;Prac adithya ID: 0001 Nahomimary lyons, [facility] 13:16:53 Screenin g for malignan t neoplasm of cervix Completed 201208/18/2020 Pap Smear;Pr actice ID: 0001 Nahomi Miner null, [facility] 13:17:24 Insertio n of intraute rine contrace ptive device Completed 201208/18/2020 INSERTIO N OF IUD;Prac adithya ID: 0001 Nahomi Miner null, [facility] 13:17:01 Pregnanc y test negative [id number] Completed 201208/18/2020 Negative Pregnanc y Test;Pra ctice ID: 0001 Nahomi Miner null, [facility] 13:17:12 Irregula r intermen strual bleeding [id number] Completed 201208/18/2020 Metrorrh agia;Pra ctice ID: 0001 Nahomi Miner null, [facility] 13:17:03 Dermatop hytosis of the perianal area Completed 201308/18/2020 Dermatop hytosis of groin and perianal area;Pra ctice ID: 0001 Nahomi lyons, [facility] 13:16:48 Dyspareu munir [id number] Completed 201308/18/2020 Dyspareu munir;Prac adithya ID: 0001 Nahomi lyons [facility] 13:16:50 Speciali zed medical examinat ion Completed 201408/18/2020 Other specifie d chlamydi al diseases ;Practic e ID: 0001 Nahomi lyons [facility] 13:17:35 Venereal disease screenin g Completed 201408/18/2020 Screenin g examinat ion for venereal disease; Practice ID: 0001 Nahomi lyons [facility] 13:17:42 Right lower quadrant pain [id number] Completed 201508/18/2020 Right lower quadrant pain;Pra ctice ID: 0001 Nahomi lyons [facility] 13:17:21 Abdomina l pain [id number] Completed 201508/18/2020 Unspecif ied abdomina l pain;Pra ctice ID: 0001 Nahomi lyons [facility] 13:16:36 Clinical finding Completed 201508/18/2020 Encounte r for initial prescrip tion of injectab le contrace p;Practi ce ID: 0001 Nahomi lyons [facility] 13:16:41 Finding of regulari ty of menstrua l cycle Completed 201708/18/2020 Irregula r menstrua tion, unspecif ied;Prac adithya ID: 0001 Nahomi lyons [facility] 13:16:56 Bone density finding 477687332 Completed 201808/18/2020 Oth disrd of bone density and structur e, unspecif ied site;Pra ctice ID: 0001 Nahomi lyons [facility] 1 13:16:39 Syphilis test finding [id number] Completed 201508/18/2020 Encntr screen for infectio ns w sexl mode of transmis s;Record ed Elsewher e: No Locat ion: [facility] S ource: EHR Aligner Barrel And Receiver eleuterio: N Kenji ce ID: 0001 Shane lable Time: 02:30:00 PM Nahomi Miner [facility] 1 13:17:[address] Concept Completed 201808/18/2020 Encntr for routine child health exam w/o abnormal findings ;Recorde d Elsewher e: No Locat ion: [facility] S ource: EHR Aligner Barrel And Receiver eleuterio: N Kenji ce ID: 0001 Shane lable Time: 05:15:00 PM Nahomi Miner [facility] 13:17:28 Contrace ptive sheath status 445370175 Completed 201508/18/2020 Encounte r for initial prescrip tion of other contrace ptives;R ecorded Elsewher e: No Locat ion: [facility] S ource: EHR Aligner Barrel And Receiver eleuterio: N Kenji ce ID: 0001 Shane lable Time: 01:45:00 PM Nahomi Miner [facility] 1 13:16:46 Infectio n screenin g Completed 201508/18/2020 Encounte r for screenin g for oth infec/pa rastc diseases ;Recorde d Elsewher e: No Locat ion: [facility] S ource: EHR Aligner Barrel And Receiver eleuterio: N Kenji ce ID: 0001 Shane lable Time: 02:30:00 PM Nahomi Miner [facility] 13:16:58 Problem Notes None recorded. Procedures Surgical History Date Name Laterality Status Provider Name and Address Organization Details Recorded Time 2 Date of Last Pap Smear completed Nahomi Miner [facility] 11/16/2021 12:17:17 8 Colposcopy completed [place] [facility] 08/18/2020 13:20:56 8 Colposcopy completed [place] [facility] 08/18/2020 13:30:40 0 repair of cleft palate completed [place] [facility] 08/18/2020 13:27:58 9 operative procedure on foot completed [place] [facility] 11/16/2021 12:18:35 1 repair of cleft palate completed [place] [facility] 08/18/2020 13:27:37 0 repair of cleft palate completed [place] [facility] 08/18/2020 13:28:16 Imaging Results None recorded. [...] Elsewher e: No Locat ion: [facility] Narda odify By: steve hernandez DateTime : 06/30/19 14 11:15:00 AM Not Available Not Available Not Available Diflucan 150 mg tablet take 1 tablet by oral route once 11/11 completed Prescrib ed Elsewher e: No Locat ion: [facility] M odify By: lopez hernandez DateTime : 01/28/20 18 11:30:05 AM Not Available Not Available Not Available Metrogel Vaginal 0.75 % (37.5 mg/5 gram) insert 1 applicat orful by vaginal route every day at bedtime for 5 nights 07/15 completed Prescrib ed Elsewher e: No Locat ion: [facility] odify By: conor martinez DateTime : 04/22/20 16 12:07:13 PM Not Available Not Available Not Available Depo-Prov era 150 mg/mL intramusc ular suspensio n inject 1 millilit er by intramus cular route every 3 months 08/18 completed Prescrib ed Elsewher e: No Locat ion: [facility] odify By: sasha hernandez DateTime : 06/01/20 19 02:46:55 PM Not Available Not Available Not Available Mapap (acetamin ophen) 500 mg capsule take 2 capsule by oral route every 6 hours as needed 04/16 completed Prescrib ed Elsewher e: Yes Loca tion: [facility] odify By: conor Encounte r DateTime : 10/28/19 13 04:00:00 PM Not Available Not Available Not Available Flagyl 500 mg tablet take 1 tablet (500MG) by oral route 2 times every day 07/01 completed Prescrib ed Elsewher e: No Locat ion: [facility] odify By: eedmonds Encount er DateTime : 03/28/20 11 01:40:38 PM Not Available Not Available Not Available Vitamin D2 1,250 mcg (50,000 unit) capsule take 1 capsule by oral route every week 11/16 completed Prescrib ed Elsewher e: Yes Loca tion: [facility] odify By: conor Encounte r DateTime : 09/08/19 20 02:15:00 PM Not Available Not Available Not Available Depo-Prov era 150 mg/mL intramusc ular syringe inject 1 millilit er by intramus cular route every 3 months 04/03 completed Prescrib ed Elsewher e: No Locat ion: [facility] odify By: sasha hernandez DateTime : 01/04/20 17 02:36:03 PM Not Available Not Available Not Available Vitals Date Recorded Body height Body mass index (BMI) Body weight Systolic blood pressure Diastolic blood pressure Provider Name and Address Organization Details Last Updated DateTime 08/18/2020 146.05 cm 26.8 kg/m2 45662.64 g 130 mm[Hg] 87 mm[Hg] Nahomi Miner [facility] 1 13:15:48 Date Recorded Body height Body mass index (BMI) Body weight Systolic blood pressure Diastolic blood pressure Provider Name and Address Organization Details Last Updated DateTime 11/16/2021 146.05 cm 21.1 kg/m2 25723.64 g 127 mm[Hg] 84 mm[Hg] Nahomi Miner [facility] 2 12:16:31 Date Recorded Body weight Systolic blood pressure Diastolic blood pressure Systolic blood pressure Diastolic blood pressure Provider Name and Address Organization Details Last Updated DateTime 3 29421.8 g 161 mm[Hg] 104 mm[Hg] 140 mm[Hg] 90 mm[Hg] Nina Mccauley [facility] [address], [place], [address], [facility] 3 17:20:56 Date Recorded Body height Body mass index (BMI) Body weight Systolic blood pressure Diastolic blood pressure Provider Name and Address Organization Details Last Updated DateTime 02/20/2024 146.05 cm 17.5 kg/m2 48420.01 g 132 mm[Hg] 87 mm[Hg] Leilani Kiran [facility] 4 14:08:57 Social History Question Answer Notes LastModified by Organizat ion Details LastModified Time Tobacco Smoking Status Current Every Day Smoker Nahomi Miner [facility], [facility] 08/18/2020 13:27:01 If You Are , What Was Your Level Of Alcohol Consumption Prior To ? Occasional [email or web address] Information not available 08/18/2020 Are You Blind Or Do You Have Difficulty Seeing? No Information not available 08/18/2020 What Is Your Level Of Caffeine Consumption? Occasional [email or web address] Information not available 08/18/2020 In The 14 Days Before Symptom Onset, Have You Had Close Contact With A Laboratory-confir med COVID-19 While That Case Was Ill? No [email or web address] Information not available 08/18/2020 In The 14 Days Before Symptom Onset, Have You Had Close Contact With A Person Who Is Under Investigation For COVID-19 While That Person Was Ill? No [email or web address] Information not available 08/18/2020 Have You Been To An Area Known To Be High Risk For COVID-19? No [email or web address] Information not available 08/18/2020 Are You Deaf Or Do You Have Serious Difficulty Hearing? No [email or web address] Information not available 08/18/2020 What Type Of Diet Are You Following? REGULAR [email or web address] Information not available 08/18/2020 Have You Ever Been Counseled For Unhealthy Alcohol Use? No Information not available 08/18/2020 Do You Use Your Seat Belt Or Car Seat Routinely? Yes Information not available 08/18/2020 Do You Have Smoke And Carbon Monoxide Detectors In Your Home? Yes [email or web address] Information not available 08/18/2020 Do You Use Sunscreen Routinely? Yes [email or web address] Information not available 08/18/2020 Has Tobacco Cessation Counseling Been Provided? No [email or web address] Information not available 08/18/2020 Do You Have Difficulty Walking Or Climbing Stairs? No Information not available 11/16/2021 Sex: Unknown Functional Status Question Answer Note LastModified by Organizat ion Details LastModified Time Do you use any illicit or recreational drugs? No [email or web address] Information not available 08/18/2020 Do you or have you ever used any other forms of tobacco or nicotine? No [email or web address] Information not available 08/18/2020 What is your level of alcohol consumption? Occasional [email or web address] Information not available 08/18/2020 Are you able to walk? YESWOREST [email or web address] Information not available 08/18/2020 Are you able to care for yourself? Yes [email or web address] Information n ot available 11/16/2021 Do you have difficulty dressing or bathing? No [email or web address] Information not available 11/16/2021 What is your exercise level? Occasional [email or web address] Information not available 08/18/2020 Mental Status Question Answer Note LastModified by Organization D etails LastModified Time Do you feel stressed (tense, restless, nervous, or anxious, or unable to sleep at night)? [id number] [email or web address] Information not available 08/18/2020 Family History Relationship Description Onset Age of this Age Resolved Age Notes LastModified by Organization Details LastModified Time Paternal Grandmother History of Hodgkin lymphoma [email or web address] Not available 08/18 13:23:40 Paternal Grandfather Malignant neoplasm of lung [email or web address] Not available 08/18 13:23:55 Maternal Uncle Diabetes mellitus Not available 08/18 13:24:06 Maternal Grandmother Malignant neoplasm of brain [email or web address] Not available 08/18 13:24:28 Maternal Grandmother Uterine fibroid polyp [email or web address] Not available 08/18 13:26:04 Notes:Maternal grandmother: Uterine Fibroids Maternal uncle: Diabetes mellitus Paternal grandfather: Cancer, lung Paternal grandmother: Hodgkin's Disease Medical History Condition Response Other Y Blood Transfusion N Dermatologic Disorders N Gestational Diabetes N Anxiety Disorder Y Autoimmune disease Y Arthritis N Polyps N Infertility N Acid Reflux (GERD) Y Cancer N Varicosities N Stroke N Neurologic/Epilepsy N Fibromyalgia N Headaches N Kidney Disease N Heart Problems Y Kidney or Bladder Problems N Eating Disorder N Art (IVF or FET) N Hepatitis/Liver Disease N No Past Medical History N Urinary Tract Infection N Asthma N Trauma/Violence N Thrombophilias N Allergies (Food, seasonal, environmental ) N Breast Cancer N Drug/Latex Allergies/Reactions N Lung Disease N Defects or Inherited Disease N Breast Problem N Hematologic disorders N Anesthesia Complications N History of STI N Deep Vein Thrombosis N Polycystic ovary syndrome N History of abnormal pap Y Endometriosis N High Cholesterol N Thyroid Problems Y GI Problems Y Anemia N Psychiatric Illness N Ovarian Cancer N Diabetes N Pulmonary (TB, Asthma) N Eczema N Abuse/Domestic Violence N Depression/ depression Y Heart Disease Y Pre-Eclampsia N Hypertension N Osteoporosis Y Gynecological History Statement/Question Response Abnormal Pap Y [...] SNOMED-CT Code Diagnosis ICD10 Code Diagnosis Note [id number] Nuzhat Zhang [facility] [address],[place] [address] 08/18/2020 12:52:56 08/18/2020 14:27:11 Gynecologic examination 52469826 Z01.419 [id number] [facility] [address],[place] [address] 11/16/2021 12:04:02 11/16/2021 12:44:03 Gynecologic examination 20110958 Z01.419 encouraged to take thyroid meds daily as it will help fatigue [id number] VIOLET Tesfaye A[facility] [address],[place] [address] 02/13/2023 15:25:50 02/14/2023 16:33:04 Anxiety 68312426 F41.9 patient requesting immediate evaluation for anxiety symptomswe agreed to defer WWE todayinfor mation [facility] - they do not have any way to get there as they were dropped off [address] Pagan gave patient and patients mother a ride to [place] ED per patient request. Precaution s reviewed with patient. Recommend f/u for WWE Time spent in visit is a total of 20 mins with at least 50% of visit consisting of counseling and review of plan of care. [id number] MERCEDES DE LA CRUZ MD A[facility] [address],[place] [address] 02/20/2024 14:00:40 02/20/2024 14:52:27 Gynecologic examination 73310872 Z01.419 [facility]- Cervical cancer screening: [...] Ferrara Member ID Guarantor Name 08/18/2020 1 [facility] - DOS PRIOR TO 2020 (MEDICAID REPLACEMENT - HMO) Emperatriz A Mcneill [id number] Emperatriz A Mcneill 11/16/2021 1 [facility] (MEDICARE REPLACEMENT/AD VANTAGE - HMO) Emperatriz A Mcneill [id number] Emperatriz A Mcneill 02/13/2023 1 [facility] (MEDICARE REPLACEMENT/AD VANTAGE - HMO) Emperatriz A Mcneill [id number] Emperatriz A Mcneill 02/20/2024 1 [facility] (MEDICARE REPLACEMENT/AD VANTAGE - HMO) Emperatriz A Mcneill [id number] Emperatriz A Mcneill Notes Date Note Type [...] with aren Zhang, FIORELLA [address], [place], [address], [facility] 08/18/2020 13:53:00 11/16/2021 text/html Annual GYNReport [...] daily Nuzhat Zhang CNM [address], [place], [address], [facility] 11/16/2021 12:43:51 02/13/2023 text/html 32yopresents [age] [...] here today VIOLET Tesfaye [address], [place], [address], [facility] 02/14/2023 13:50:16 / [id number]|2024-11-03 19:36:00|2024-11-03 19:36:00|ED_ITS|[facility]|Health Information Management|[id number]|"HPI - Psych General Chief Complaint: Alcohol Stated Complaint: si Time Seen by Provider: 11/03/24 19:29 Source: EMS Mode of arrival: EMS Limitations: no limitations History of Present Illness HPI Narrative: 34-year-old female with a history of smoking, alcoholism, hypertension [place] un[place]. She is brought in by EMS. She presents with -- altered mental status- was initially noted to be unresponsive but when EMS arrived she was sitting down. -- Stated excessive alcohol intake. -- the patient told her mother that she is suicidal. on arrival to the ED the patient denied suicidal or homicidal ideation. No other complaints MD complaint: altered mental status ( Patient is intoxicated with alcohol) Onset (ago): unknown Relieving factors: none Exacerbating factors: none Context: recent alcohol abuse Associated psychiatric symptoms: none and depression Associated symptoms: denies other symptoms Treatments prior to arrival: none Related Data Allergies Allergy/AdvReac Type Severity Reaction Status Date / Time No Known Allergies Allergy Verified 11/03/24 19:51 Review of Systems 2 Review of Systems: All systems reviewed & are unremarkable except as noted in HPI and below Constitutional: Constitutional: Reports as per HPI and Reports no additional constitutional complaints Eyes: Eyes: Reports as per HPI and Reports no additional eye complaints ENT: Reports system reviewed and no additional complaints, except as documented and Reports as per HPI Cardiovascular: Cardiovascular: Reports as per HPI and Reports no additional cardiovascular complaints Respiratory: Respiratory: Reports as per HPI and Reports no additional respiratory complaints Gastrointestinal: Gastrointestinal: Reports as per HPI and Reports no additional gastrointestinal complaints Genitourinary: Genitourinary: Reports no additional female genitourinary complaints and Reports as per HPI Musculoskeletal: Musculoskeletal: Reports no additional musculoskeletal complaints and Reports as per HPI Integumentary/Breasts: Skin/Breast: Reports system reviewed and no additional complaints, except as docu and Reports as per HPI Neurologic: Reports system reviewed and no additional complaints, except as documented and Reports as per HPI Psychiatric: Psychiatric: Reports no additional psychiatric complaints and Reports as per HPI Comments: Patient denies suicidal or homicidal ideation. Endocrine: Endocrine: Reports no additional endocrine complaints and Reports as per HPI Hematologic/Lymphatic: Hematologic/Lymphatic: Reports no additional hematologic/lymphatic complaints and Reports as per HPI Allergic/Immunologic: Allergic/Immunologic: Reports no additional allergic/immunologic complaints and Reports as per HPI PMFSH Past Medical History Medical History Chromosome abnormality Hemorrhoids Surgical History Surgical History Cleft palate Social History Social History Smoking status: Current every day smoker Tobacco type: cigarettes Alcohol intake: current Alcohol use details: daily beer and hard liquor Substance use: current Substance use type: marijuana Living arrangements: with family Gender identity (if verbalized by the patient): Female Exam 2 Narrative: vitals are stable Const: General: ill appearing Limitations: altered mental status ( patient is drowsy but arousable.) HENMT: Head: normal to inspection Ears: external ears normal F audelia/Nose/Sinus: Normal external nose present Face and sinus: normal facial exam Teeth and gingiva: abnormal tooth and associated gingiva Throat: p osterior oropharynx normal Eyes: Conjunctivae: conjunctivae normal Pupils: Equal, round and reactive pupils present EOM: EOMs intact bilaterally Direct Ophthalmoscopy: no photophobia Neck: Neck: normal visual inspection, no lymphadenopathy and no meningeal signs Chest: Chest palpation & inspection: normal inspection of the chest Resp: Effort & Inspection: normal respiratory effort Auscultation: clear to auscultation bilaterally Cardio: Rate: regular rate Rhythm: regular rhythm GI: GI Palp: Yes Soft to palpation Auscultation: normal bowel sounds O ther: No tenderness/rigidity /rebound : General: Yes no CVA tenderness Back/Spine/Pelvis: Back: no CVA tenderness Skin: General skin exam: normal color Rashes: no rashes Wounds: no wounds Neuro: General: moves all extremities, no meningeal signs, no focal motor deficits and CN's II-XI intact bilaterally Extrem: General: normal to inspection and no clubbing, cyanosis or edema Psych: Affect: Sad affect present Other: Patient denies suicidal or homicidal ideation. Course Course Emergency Course: Altered mental status/ alcohol intoxication-- CT of the head did not show any acute findings. blood alcohol level was noted to be 360 mg/dL. urine tox is negative. Alcoholic hepatitis Hypernatremia-- patient received banana bag made in D5 LR. Patient just received 350 mL of IV fluids. discussed with her mother. The patient has on many occasions expressed depression but has never had a suicidal attempt in the past. The patient adamantly refused suicidal/homicidal ideation. The patient is walking back and forth in the ED. the patient's speech is clear. The patient will be discharged home with her mother. Vital Signs Vital signs: Vital Signs Temperature 36.6 C 11/03/24 19:30 Pulse Rate 92 11/03/24 19:30 Respiratory Rate 19 11/03/24 19:30 Blood Pressure 118/66 11/03/24 19:30 Pulse Oximetry 98 11/03/24 19:30 Oxygen Delivery Room Air 11/03/24 19:30 Temperature 36.6 C 11/03/24 19:30 Pulse Rate 92 11/03/24 19:30 Respiratory Rate 19 11/03/24 19:30 Blood Pressure 118/66 11/03/24 19:30 Pulse Oximetry 98 11/03/24 19:30 Oxygen Delivery Room Air 11/03/24 19:30 MDM - Psych MDM Narrative Medical decision making narrative: Altered mental status alcohol intoxication Differential Diagnosis Differential diagnosis: Likely depression Medical Records Attestation: I reviewed the patient's medical records. Lab Data Attestation: I reviewed the patient's lab results. 11/03/24 19:44 11/03/24 19:44 Labs: Lab Results 11/03/24 11/03/24 11/03/24 Range/Units 19:24 19:43 19:44 WBC 7.5 (4.8-10.8) K/mm3 RBC 4.89 (4.20-5.40) M/mm3 Hgb 15.0 (12.0-15.0) g/dL Hct 46.4 (35.0-49.0) % MCV 94.9 (78.0-102.0) fL MCH 30.7 (27.0-31.0) pg MCHC 32.3 (32-36) g/dL RDW 12.4 (11.6-14.4) % Plt Count 301 (150-420) K/mm3 MPV 9.6 (9.2-11.8) fl Immature Gran % (Auto) 0.3 H (0.0-0.0) % Neut % (Auto) 51.1 (50.0-70.0) % Lymph % (Auto) 39.6 (18.0-42.0) % [place] % (Auto) 5.8 (2.0-11.0) % Eos % (Auto) 2.7 (1.0-6.0) % Baso % (Auto) 0.5 (0.0-1.0) % Lymph # (Auto) 2.95 (1.10-4.50) K/mm3 [place] # (Auto) 0.43 (0.10-0.90) K/mm3 Eos # (Auto) 0.20 (0.02-0.50) K/mm3 Baso # (Auto) 0.04 (0.00-0.10) K/mm3 Abs Immat Gran (auto) 0.02 H (0.00-0.00) K/mm3 Absolute Neuts (auto) 3.81 (1.70-7.20) K/mm3 Absolute Nucleated RBC 0.00 (0.00-0.00) K/mm3 Nucleated RBC % 0.0 (0-0.0) % PT 11.4 (9.50-12.1) Seconds INR 1.0 Sodium 147 H (137-145) mmol/L Potassium 5.5 H (3.4-5.0) mmol/L Chloride 109 H (98-107) mmol/L Carbon Dioxide 29 (22-30) mmol/L Anion Gap 9 (4-12) mmol/L BUN 13 (7-17) mg/dL Creatinine 0.62 L (0.7-1.0) mg/dL Estim Creat Clear Calc Not Reportable Estimated GFR > 60 (59 - ) Glucose 76 (65-110) mg/dL Calculated Osmolality 303 H (285-295) mOsm/kg Calcium 9.2 (8.4-10.2) mg/dL Total Bilirubin 1.1 (0.2-1.3) mg/dL AST 48 H (14-36) U/L ALT 29 (6-35) U/L Alkaline Phosphatase 49 (38-126) U/L Troponin I 0.030 (0.000-0.034) ng/mL Total Protein 7.9 (6.3-8.2) g/dL Albumin 4.8 (3.5-5.1) g/dL Lipase 171 (23-300) U/L TSH 0.550 (0.465-4.680) uIU/mL Urine Color Light yellow (Yellow) Urine Appearance Clear (Clear) Urine pH 6.0 (5.0-8.0) Ur Specific [place] <= 1.005 L (1.010-1.020) Urine Protein Negative (Negative) Urine Glucose (UA) Negative (Negative) Urine Ketones Negative (Negative) Ur Blood (Man) 1+ H (Negative) Urine Nitrate Negative (Negative) Urine Bilirubin Negative (Negative) Urine Urobilinogen 0.2 (0.2-1.0) mg/dL Leukocyte Esterase Rfl Negative (Negative) JUANITO/UL Urine RBC 0-2 (0-2) /hpf Urine WBC None seen (0-3) /hpf Ur Squamous Epith Cells Rare (Few) /hpf Urine Test Negative Salicylates < 1.0 L (2-20) mg/dL Urine Opiates Screen Negative (Negative) Urine Methadone Screen Negative (Negative) Acetaminophen < 10 L (10-30) ug/mL Ur Barbiturates Screen Negative (Negative) Ur Phencyclidine Scrn Negative (Negative) Ur Amphetamine Screen Negative (Negative) U Benzodiazepines Scrn Negative (Negative) Urine Cocaine Screen Negative (Negative) U Cannabinoids Screen Negative (Negative) Ethyl Alcohol 360 H* (<10) mg/dL Influenza A (RT-PCR) (Negative) Influenza B (RT-PCR) (Negative) RSV (RT-PCR) (Negative) SARS-CoV-2 RNA (RT-PCR) (Negative) 11/03/24 Range/Units 19:47 WBC (4.8-10.8) K/mm3 RBC (4.20-5.40) M/mm3 Hgb (12.0-15.0) g/dL Hct (35.0-49.0) % MCV (78.0-102.0) fL MCH (27.0-31.0) pg MCHC (32-36) g/dL RDW (11.6-14.4) % Plt Count (150-420) K/mm3 MPV (9.2-11.8) fl Immature Gran % (Auto) (0.0-0.0) % Neut % (Auto) (50.0-70.0) % Lymph % (Auto) (18.0-42.0) % Cris[place] % (Auto) (2.0-11.0) % Eos % (Auto) (1.0-6.0) % Baso % (Auto) (0.0-1.0) % Lymph # (Auto) (1.10-4.50) K/mm3 [place] # (Auto) (0.10-0.90) K/mm3 Eos # (Auto) (0.02-0.50) K/mm3 Baso # (Auto) (0.00-0.10) K/mm3 Abs Immat Gran (auto) (0.00-0.00) K/mm3 Absolute Neuts (auto) (1.70-7.20) K/mm3 Absolute Nucleated RBC (0.00-0.00) K/mm3 Nucleated RBC % (0-0.0) % PT (9.50-12.1) Seconds INR Sodium (137-145) mmol/L Potassium (3.4-5.0) mmol/L Chloride (98-107) mmol/L Carbon Dioxide (22-30) mmol/L Anion Gap (4-12) mmol/L BUN (7-17) mg/dL Creatinine (0.7-1.0) mg/dL Estim Creat Clear Calc Estimated GFR (59 - ) Glucose (65-110) mg/dL Calculated Osmolality (285-295) mOsm/kg Calcium (8.4-10.2) mg/dL Total Bilirubin (0.2-1.3) mg/dL AST (14-36) U/L ALT (6-35) U/L Alkaline Phosphatase (38-126) U/L Troponin I (0.000-0.034) ng/mL Total Protein (6.3-8.2) g/dL Albumin (3.5-5.1) g/dL Lipase (23-300) U/L TSH (0.465-4.680) uIU/mL Urine Color (Yellow) Urine Appearance (Clear) Urine pH (5.0-8.0) Ur Specific [place] (1.010-1.020) Urine Protein (Negative) Urine Glucose (UA) (Negative) Urine Ketones (Negative) Ur Blood (Man) (Negative) Urine Nitrate (Negative) Urine Bilirubin (Negative) Urine Urobilinogen (0.2-1.0) mg/dL Leukocyte Esterase Rfl (Negative) JUANITO/UL Urine RBC (0-2) /hpf Urine WBC (0-3) /hpf Ur Squamous Epith Cells (Few) /hpf Urine Test Salicylates (2-20) mg/dL Urine Opiates Screen (Negative) Urine Methadone Screen (Negative) Acetaminophen (10-30) ug/mL Ur Barbiturates Screen (Negative) Ur Phencyclidine Scrn (Negative) Ur Amphetamine Screen (Negative) U Benzodiazepines Scrn (Negative) Urine Cocaine Screen (Negative) U Cannabinoids Screen (Negative) Ethyl Alcohol (<10) mg/dL Influenza A (RT-PCR) Negative (Negative) Influenza B (RT-PCR) Negative (Negative) RSV (RT-PCR) Negative (Negative) SARS-CoV-2 RNA (RT-PCR) Negative (Negative) Discharge Plan Discharge Clinical Impression: Alcoholic intoxication Qualifiers: Complication of substance-induced condition: uncomplicated Qualified Code(s): F 10.920 - Alcohol use, unspecified with intoxication, uncomplicated Altered mental status Qualifiers: Altered mental status type: unspecified Qualified Code(s): R41.82 - Altered mental status, unspecified Patient Disposition: Home Condition: Stable Instructions: Antibiotic Form, Alcohol Intoxication (ED) Additional Instructions: decided not to give chlordiazepoxide. Patient Language: Bengali Prescriptions: New thiamine HCl (vitamin B1) 100 mg capsule 100 mg PO DAILY Qty: 30 0RF chlordiazepoxide HCl 5 mg capsule 5 mg PO BID PRN (Reason: anxiety) Qty: 7 0RF No Action amoxicillin-pot clavulanate 875-125 mg tablet 1 tablet PO BID 10 Days Qty: 20 0RF Follow-up/Referrals: Jacques Fisher MD [Primary Care Provider] - Time of Disposition: 22:26 "
--- NOTE | 2024-11-03 19:33 | ECG_ITS ---
Test Date: 2024-11-03 19:46:37 Measurements Intervals [place] Rate: 88 P: 54 MO: 171 QRS: 29 QRSD: 96 T: 60 QT: 397 QTc: 482 Interpretive Statements SINUS RHYTHM Compared to ECG 07/23/2024 18:30:56 Ectopic atrial rhythm no longer present Prolonged QT interval no longer present Electronically Signed On 11-04-2024 15:56:08 CDT by Armando Hernandez M.D.
--- NOTE | 2024-11-03 19:36 | ED.PSYCH ---
HPI - Psych General Chief Complaint: Alcohol Stated Complaint: si Time Seen by Provider: 11/03/24 19:29 Source: EMS Mode of arrival: EMS Limitations: no limitations History of Present Illness HPI Narrative: 34-year-old female with a history of smoking, alcoholism, hypertension [place] un[place]. She is brought in by EMS. She presents with -- altered mental status- was initially noted to be unresponsive but when EMS arrived she was sitting down. -- Stated excessive alcohol intake. -- the patient told her mother that she is suicidal. on arrival to the ED the patient denied suicidal or homicidal ideation. No other complaints MD complaint: altered mental status ( Patient is intoxicated with alcohol) Onset (ago): unknown Relieving factors: none Exacerbating factors: none Context: recent alcohol abuse Associated psychiatric symptoms: none and depression Associated symptoms: denies other symptoms Treatments prior to arrival: none Related Data Allergies Allergy/AdvReac Type Severity Reaction Status Date / Time No Known Allergies Allergy Verified 11/03/24 19:51 Review of Systems Review of Systems: All systems reviewed & are unremarkable except as noted in HPI and below Constitutional: Constitutional: Reports as per HPI and Reports no additional constitutional complaints Eyes: Eyes: Reports as per HPI and Reports no additional eye complaints ENT: Reports system reviewed and no additional complaints, except as documented and Reports as per HPI Cardiovascular: Cardiovascular: Reports as per HPI and Reports no additional cardiovascular complaints Respiratory: Respiratory: Reports as per HPI and Reports no additional respiratory complaints Gastrointestinal: Gastrointestinal: Reports as per HPI and Reports no additional gastrointestinal complaints Genitourinary: Genitourinary: Reports no additional female genitourinary complaints and Reports as per HPI Musculoskeletal: Musculoskeletal: Reports no additional musculoskeletal complaints and Reports as per HPI Integumentary/Breasts: Skin/Breast: Reports system reviewed and no additional complaints, except as docu and Reports as per HPI Neurologic: Reports system reviewed and no additional complaints, except as documented and Reports as per HPI Psychiatric: Psychiatric: Reports no additional psychiatric complaints and Reports as per HPI Comments: Patient denies suicidal or homicidal ideation. Endocrine: Endocrine: Reports no additional endocrine complaints and Reports as per HPI Hematologic/Lymphatic: Hematologic/Lymphatic: Reports no additional hematologic/lymphatic complaints and Reports as per HPI Allergic/Immunologic: Allergic/Immunologic: Reports no additional allergic/immunologic complaints and Reports as per HPI PMF Past Medical History Medical History Chromosome abnormality Hemorrhoids Surgical History Surgical History Cleft palate Social History Social History Smoking status: Current every day smoker Tobacco type: cigarettes Alcohol intake: current Alcohol use details: daily beer and hard liquor Substance use: current Substance use type: marijuana Living arrangements: with family Gender identity (if verbalized by the patient): Female Exam Narrative: vitals are stable Const: General: ill appearing Limitations: altered mental status ( patient is drowsy but arousable.) HENMT: Head: normal to inspection Ears: external ears normal Face/Nose/Sinus: Normal external nose present Face and sinus: normal facial exam Teeth and gingiva: abnormal tooth and associated gingiva Throat: posterior oropharynx normal Eyes: Conjunctivae: conjunctivae normal Pupils: Equal, round and reactive pupils present EOM: EOMs intact bilaterally Direct Ophthalmoscopy: no photophobia Neck: Neck: normal visual inspection, no lymphadenopathy and no meningeal signs Chest: Chest palpation & inspection: normal inspection of the chest Resp: Effort & Inspection: normal respiratory effort Auscultation: clear to auscultation bilaterally Cardio: Rate: regular rate Rhythm: regular rhythm GI: GI Palp: Yes Soft to palpation Auscultation: normal bowel sounds Other: No tenderness/rigidity /rebound : General: Yes no CVA tenderness Back/Spine/Pelvis: Back: no CVA tenderness Skin: General skin exam: normal color Rashes: no rashes Wounds: no wounds Neuro: General: moves all extremities, no meningeal signs, no focal motor deficits and CN's II-XI intact bilaterally Extrem: General: normal to inspection and no clubbing, cyanosis or edema Psych: Affect: Sad affect present Other: Patient denies suicidal or homicidal ideation. Course Course Emergency Course: Altered mental status/ alcohol intoxication-- CT of the head did not show any acute findings. blood alcohol level was noted to be 360 mg/dL. urine tox is negative. Alcoholic hepatitis Hypernatremia-- patient received banana bag made in D5 LR. Patient just received 350 mL of IV fluids. discussed with her mother. The patient has on many occasions expressed depression but has never had a suicidal attempt in the past. The patient adamantly refused suicidal/homicidal ideation. The patient is walking back and forth in the ED. the patient's speech is clear. The patient will be discharged home with her mother. Vital Signs Vital signs: Vital Signs Temperature 36.6 C 11/03/24 19:30 Pulse Rate 92 11/03/24 19:30 Respiratory Rate 19 11/03/24 19:30 Blood Pressure 118/66 11/03/24 19:30 Pulse Oximetry 98 11/03/24 19:30 Oxygen Delivery Room Air 11/03/24 19:30 Temperature 36.6 C 11/03/24 19:30 Pulse Rate 92 11/03/24 19:30 Respiratory Rate 19 11/03/24 19:30 Blood Pressure 118/66 11/03/24 19:30 Pulse Oximetry 98 11/03/24 19:30 Oxygen Delivery Room Air 11/03/24 19:30 MDM - Psych MDM Narrative Medical decision making narrative: Altered mental status alcohol intoxication Differential Diagnosis Differential diagnosis: Likely depression Medical Records Attestation: I reviewed the patient's medical records. Lab Data Attestation: I reviewed the patient's lab results. 11/03/24 19:44 11/03/24 19:44 Labs: Lab Results 11/03/24 11/03/24 11/03/24 Range/Units 19:24 19:43 19:44 WBC 7.5 (4.8-10.8) K/mm3 RBC 4.89 (4.20-5.40) M/mm3 Hgb 15.0 (12.0-15.0) g/dL Hct 46.4 (35.0-49.0) % MCV 94.9 (78.0-102.0) fL MCH 30.7 (27.0-31.0) pg MCHC 32.3 (32-36) g/dL RDW 12.4 (11.6-14.4) % Plt Count 301 (150-420) K/mm3 MPV 9.6 (9.2-11.8) fl Immature Gran % (Auto) 0.3 H (0.0-0.0) % Neut % (Auto) 51.1 (50.0-70.0) % Lymph % (Auto) 39.6 (18.0-42.0) % [place] % (Auto) 5.8 (2.0-11.0) % Eos % (Auto) 2.7 (1.0-6.0) % Baso % (Auto) 0.5 (0.0-1.0) % Lymph # (Auto) 2.95 (1.10-4.50) K/mm3 [place] # (Auto) 0.43 (0.10-0.90) K/mm3 Eos # (Auto) 0.20 (0.02-0.50) K/mm3 Baso # (Auto) 0.04 (0.00-0.10) K/mm3 Abs Immat Gran (auto) 0.02 H (0.00-0.00) K/mm3 Absolute Neuts (auto) 3.81 (1.70-7.20) K/mm3 Absolute Nucleated RBC 0.00 (0.00-0.00) K/mm3 Nucleated RBC % 0.0 (0-0.0) % PT 11.4 (9.50-12.1) Seconds INR 1.0 Sodium 147 H (137-145) mmol/L Potassium 5.5 H (3.4-5.0) mmol/L Chloride 109 H (98-107) mmol/L Carbon Dioxide 29 (22-30) mmol/L Anion Gap 9 (4-12) mmol/L BUN 13 (7-17) mg/dL Creatinine 0.62 L (0.7-1.0) mg/dL Estim Creat Clear Calc Not Reportable Estimated GFR > 60 (59 - ) Glucose 76 (65-110) mg/dL Calculated Osmolality 303 H (285-295) mOsm/kg Calcium 9.2 (8.4-10.2) mg/dL Total Bilirubin 1.1 (0.2-1.3) mg/dL AST 48 H (14-36) U/L ALT 29 (6-35) U/L Alkaline Phosphatase 49 (38-126) U/L Troponin I 0.030 (0.000-0.034) ng/mL Total Protein 7.9 (6.3-8.2) g/dL Albumin 4.8 (3.5-5.1) g/dL Lipase 171 (23-300) U/L TSH 0.550 (0.465-4.680) uIU/mL Urine Color Light yellow (Yellow) Urine Appearance Clear (Clear) Urine pH 6.0 (5.0-8.0) Ur Specific [place] <= 1.005 L (1.010-1.020) Urine Protein Negative (Negative) Urine Glucose (UA) Negative (Negative) Urine Ketones Negative (Negative) Ur Blood (Man) 1+ H (Negative) Urine Nitrate Negative (Negative) Urine Bilirubin Negative (Negative) Urine Urobilinogen 0.2 (0.2-1.0) mg/dL Leukocyte Esterase Rfl Negative (Negative) JUANITO/UL Urine RBC 0-2 (0-2) /hpf Urine WBC None seen (0-3) /hpf Ur Squamous Epith Cells Rare (Few) /hpf Urine Test Negative Salicylates < 1.0 L (2-20) mg/dL Urine Opiates Screen Negative (Negative) Urine Methadone Screen Negative (Negative) Acetaminophen < 10 L (10-30) ug/mL Ur Barbiturates Screen Negative (Negative) Ur Phencyclidine Scrn Negative (Negative) Ur Amphetamine Screen Negative (Negative) U Benzodiazepines Scrn Negative (Negative) Urine Cocaine Screen Negative (Negative) U Cannabinoids Screen Negative (Negative) Ethyl Alcohol 360 H* (<10) mg/dL Influenza A (RT-PCR) (Negative) Influenza B (RT-PCR) (Negative) RSV (RT-PCR) (Negative) SARS-CoV-2 RNA (RT-PCR) (Negative) 11/03/24 Range/Units 19:47 WBC (4.8-10.8) K/mm3 RBC (4.20-5.40) M/mm3 Hgb (12.0-15.0) g/dL Hct (35.0-49.0) % MCV (78.0-102.0) fL MCH (27.0-31.0) pg MCHC (32-36) g/dL RDW (11.6-14.4) % Plt Count (150-420) K/mm3 MPV (9.2-11.8) fl Immature Gran % (Auto) (0.0-0.0) % Neut % (Auto) (50.0-70.0) % Lymph % (Auto) (18.0-42.0) % [place] % (Auto) (2.0-11.0) % Eos % (Auto) (1.0-6.0) % Baso % (Auto) (0.0-1.0) % Lymph # (Auto) (1.10-4.50) K/mm3 [place] # (Auto) (0.10-0.90) K/mm3 Eos # (Auto) (0.02-0.50) K/mm3 Baso # (Auto) (0.00-0.10) K/mm3 Abs Immat Gran (auto) (0.00-0.00) K/mm3 Absolute Neuts (auto) (1.70-7.20) K/mm3 Absolute Nucleated RBC (0.00-0.00) K/mm3 Nucleated RBC % (0-0.0) % PT (9.50-12.1) Seconds INR Sodium (137-145) mmol/L Potassium (3.4-5.0) mmol/L Chloride (98-107) mmol/L Carbon Dioxide (22-30) mmol/L Anion Gap (4-12) mmol/L BUN (7-17) mg/dL Creatinine (0.7-1.0) mg/dL Estim Creat Clear Calc Estimated GFR (59 - ) Glucose (65-110) mg/dL Calculated Osmolality (285-295) mOsm/kg Calcium (8.4-10.2) mg/dL Total Bilirubin (0.2-1.3) mg/dL AST (14-36) U/L ALT (6-35) U/L Alkaline Phosphatase (38-126) U/L Troponin I (0.000-0.034) ng/mL Total Protein (6.3-8.2) g/dL Albumin (3.5-5.1) g/dL Lipase (23-300) U/L TSH (0.465-4.680) uIU/mL Urine Color (Yellow) Urine Appearance (Clear) Urine pH (5.0-8.0) Ur Specific [place] (1.010-1.020) Urine Protein (Negative) Urine Glucose (UA) (Negative) Urine Ketones (Negative) Ur Blood (Man) (Negative) Urine Nitrate (Negative) Urine Bilirubin (Negative) Urine Urobilinogen (0.2-1.0) mg/dL Leukocyte Esterase Rfl (Negative) JUANITO/UL Urine RBC (0-2) /hpf Urine WBC (0-3) /hpf Ur Squamous Epith Cells (Few) /hpf Urine Test Salicylates (2-20) mg/dL Urine Opiates Screen (Negative) Urine Methadone Screen (Negative) Acetaminophen (10-30) ug/mL Ur Barbiturates Screen (Negative) Ur Phencyclidine Scrn (Negative) Ur Amphetamine Screen (Negative) U Benzodiazepines Scrn (Negative) Urine Cocaine Screen (Negative) U Cannabinoids Screen (Negative) Ethyl Alcohol (<10) mg/dL Influenza A (RT-PCR) Negative (Negative) Influenza B (RT-PCR) Negative (Negative) RSV (RT-PCR) Negative (Negative) SARS-CoV-2 RNA (RT-PCR) Negative (Negative) Discharge Plan Discharge Clinical Impression: Alcoholic intoxication Qualifiers: Complication of substance-induced condition: uncomplicated Qualified Code(s): F10.920 - Alcohol use, unspecified with intoxication, uncomplicated Altered mental status Qualifiers: Altered mental status type: unspecified Qualified Code(s): R41.82 - Altered mental status, unspecified Patient Disposition: Home Condition: Stable Instructions: Antibiotic Form, Alcohol Intoxication (ED) Additional Instructions: decided not to give chlordiazepoxide. Patient Language: Uzbek Prescriptions: New thiamine HCl (vitamin B1) 100 mg capsule 100 mg PO DAILY Qty: 30 0RF chlordiazepoxide HCl 5 mg capsule 5 mg PO BID PRN (Reason: anxiety) Qty: 7 0RF No Action amoxicillin-pot clavulanate 875-125 mg tablet 1 tablet PO BID 10 Days Qty: 20 0RF Follow-up/Referrals: Jacques Fisher MD [Primary Care Provider] - Time of Disposition: 22:26
[2024-11-03 19:44] LABS: Add Urine Microscopic? YES; Appearance Urine Clear (Clear); Bilirubin Urine Negative (Negative); Blood Urine 1+ (Negative); Color Urine Light Yellow (Yellow); Glucose Urine UA Negative (Negative); Ketones Urine Negative (Negative); Leukocyte Esterase Ur Negative LEU/UL (Negative); Nitrate Urine Negative (Negative); Protein Urine Negative (Negative); Specific Grav Ur <= 1.005 (1.010-1.020); Urobilinogen Urine 0.2 mg/dL (0.2-1.0)
[2024-11-03 19:47] LABS: Basophils Absolute Auto 0.04 K/mm3 (0.00-0.10); Basophils Percent Auto 0.5 % (0.0-1.0); Eosinophils Percent Auto 2.7 % (1.0-6.0); Hematocrit 46.4 % (35.0-49.0); Immature Granulocyte Absolute 0.02 K/mm3 (0.00-0.00); Immature Granulocyte Percent A 0.3 % (0.0-0.0); Lymphocytes Absolute Auto 2.95 K/mm3 (1.10-4.50); Lymphocytes Percent Auto 39.6 % (18.0-42.0); Mean Corpuscular HGB Conc 32.3 g/dL (32-36); Mean Corpuscular Hemoglobin 30.7 pg (27.0-31.0); Mean Corpuscular Volume 94.9 fL (78.0-102.0); Mean Platelet Volume 9.6 fl (9.2-11.8); Monocytes Absolute Auto 0.43 K/mm3 (0.10-0.90); Monocytes Percent Auto 5.8 % (2.0-11.0); Neutrophils Absolute Auto 3.81 K/mm3 (1.70-7.20); Neutrophils Percent Auto 51.1 % (50.0-70.0); Platelet Count Result 301 K/mm3 (150-420); Red Blood Count 4.89 M/mm3 (4.20-5.40); Red Cell Distribution Width 12.4 % (11.6-14.4); White Blood Count 7.5 K/mm3 (4.8-10.8)
[2024-11-03 19:52] LABS: Pregnancy On Board Control Positive; RBC Urine 0-2 /hpf (0-2); Squamous Epithelial Cell Urine Rare /hpf (Few); WBC Urine None seen /hpf (0-3)
[2024-11-03 19:54] LABS: Urine Pregnancy Test Negative
[2024-11-03 20:00] LABS: Prothrombin Time 11.4 Seconds (9.50-12.1); Salicylate < 1.0 mg/dL (2-20)
[2024-11-03] MEDS: THIAMINE HCL INJ 100 MG, FOLIC ACID 1 MG, MULTIVITAMINS-12 INJ 10 ML, MAGNESIUM SULFATE... IV CONT (20:01)
--- OUTSIDE RECORDS SUMMARY | 2024-11-03 20:05 | XMS_ITS | CONTINUITY OF CARE DOCUMENT ---
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 Trace TR, moderate GA, and a possible small supracristal VSD. Clinical evalution is unremarkable. We will repeat an echocardiogram. Kaya Chaves MD Cardiology:In sinus rhythm. The EKG does not show any significant abnormality. Kaya Chaves MD Date Name Complete Echo HISTORY OF PROCEDURES Procedure Date Procedure Name Provider Procedure Notes S tatus SNOMED-CT: 788204903 Smoking Cessation Counseling Kaya Chaves MD completed SNOMED-CT: 74359759 Physical Exam, Performed: Pulse Exam of Foot Kaya Chaves MD completed EKG Kaya Chaves MD complet ed SNOMED-CT: 054032506 [id number] Current Medications Documented Kaya Chaves MD completed SNOMED-CT: 67100912 Physical Exam, Performed: Pulse Exam of Foot Kaya Chaves MD completed SNOMED-CT: 410157936 941979 Current Medications Documented Kaya Chaves MD completed SNOMED-CT: 265926602 Smoking Cessation Counseling Kaya Chaves MD completed
[2024-11-03 20:09] LABS: Acetaminophen < 10 ug/mL (10-30)
[2024-11-03 20:11] LABS: Anion Gap 9 mmol/L (4-12); Blood Urea Nitrogen 13 mg/dL (7-17); Carbon Dioxide 29 mmol/L (22-30); Chloride 109 mmol/L (98-107); Sodium 147 mmol/L (137-145)
[2024-11-03 20:11] LABS: Amphetamine Screen Urine Negative (Negative); Barbiturate Screen Urine Negative (Negative); Benzodiazepines Screen Urine Negative (Negative); Cannabinoid Screen Urine Negative (Negative); Cocaine Screen Urine Negative (Negative); Methadone Screen Urine Negative (Negative); Opiate Screen Urine Negative (Negative); Phencyclidine Screen Urine Negative (Negative)
[2024-11-03 20:12] LABS: Alanine Aminotransferase 29 U/L (6-35); Aspartate Amino Transferase 48 U/L (14-36); Bilirubin,Total 1.1 mg/dL (0.2-1.3); Calcium 9.2 mg/dL (8.4-10.2); Estimated Glomerular Filt Rate > 60; Glucose 76 mg/dL (65-110); Osmolality Calculated 303 mOsm/kg (285-295); Total Protein 7.9 g/dL (6.3-8.2)
--- NOTE | 2024-11-03 20:12 | PC.NURSE ---
patient to CT scan via stretcher per radio board operator.
[2024-11-03 20:13] LABS: Albumin Level 4.8 g/dL (3.5-5.1); Alkaline Phosphatase 49 U/L (38-126); Potassium 5.5 mmol/L (3.4-5.0)
--- NOTE | 2024-11-03 20:30 | PC.NURSE ---
Pt repeated removing monitor leads, getting out of stretcher. Helped pt back into stretcher, replaced leads, placed coban on IV site.
[2024-11-03 20:37] LABS: Influenza A QL RT-PCR Negative (Negative); Influenza B QL RT-PCR Negative (Negative); RSV RNA, RT-PCR Negative (Negative); SARS-CoV-2 RNA PCR Negative (Negative)
[2024-11-03 20:39] LABS: Ethanol 360 mg/dL (<10)
[2024-11-03 20:41] LABS: Lipase 171 U/L (23-300)
--- NOTE | 2024-11-03 20:46 | PC.NURSE ---
Pt's mother called. Pt had previously stated that she did not want her mother to get information. I took mother's name and number and told her that if patient decided that she wants to reach out to her I will call her back. Mother, Johana Mcneill
--- NOTE | 2024-11-03 20:52 | PC.NURSE ---
Pt asking for her mother to be called to take her home. Pt denies suicidal thoughts or plan. Pt requesting to be discharged.
--- NOTE | 2024-11-03 21:10 | PC.NURSE ---
Pt removed monitor leads, pulled out IV and got out of stretcher. Pt demanding to leave.
--- NOTE | 2024-11-03 21:25 | PC.NURSE ---
Pt's mother has arrived. She agrees to take pt home. She reports that pt frequently says that she is suicidal to get her way and that she has never made any attempts.
--- NOTE | 2024-11-03 21:40 | PC.NURSE ---
Pt began yelling at her mother in her ED room. Asked mother to wait in waiting room while pt's discharged papers are prepared.
--- NOTE | 2024-11-03 21:50 | PC.NURSE ---
Talked to pt's mother in the waiting room. Mother reports that she has ongoing issues with pt. Pt refuses to get help for her alcohol addiction. Mother again agrees to take pt home. Offered mother resources for pt. Mother reports that they have been given the information many times before and that pt refuses to utilize any of them.
== END 2024-11-03 22:52 | disposition home or self-care (01) ==
PROVIDERS: Emergency Provider Internal Medicine Critical Care Medicine; PCP Family Medicine
DX: F10.90 Alcohol use, unspecified, uncomplicated (principal); Y90.9 Presence of alcohol in blood, level not specified; R41.82 Altered mental status, unspecified; I10 Essential (primary) hypertension; F17.210 Nicotine dependence, cigarettes, uncomplicated; Z20.822 Contact with and (suspected) exposure to COVID-19
CPT/HCPCS: 36415; 70450; 80053; 80143; 80179; 80307; 81001; 81025; 82077; 83690; 84443; 84484; 85025; 85610; 87637; 93005; 96365; 96366; 99284; J3411; J3475; J7121

== ENCOUNTER 2025-02-25 13:24 | Outpatient (CLI) | payer OTHER, SELFPAY ==
--- NOTE | ~2025-02-25 | XR_ITS ---
EXAMINATION: XR abdomen obstructive series DATE: 02/25/2025 13:44 INDICATION: Constipation TECHNIQUE: Frontal supine and upright views of the abdomen were obtained. COMPARISON: CT dated 01/09/2024 FINDINGS: Moderate amount of gas and small amount stool scattered throughout the colon. No dilated gas-filled bowel to suggest obstruction. No free intraperitoneal gas. T- shaped IUD projecting over the central pelvis. Visualized bilateral lower lungs are clear. Heart size is normal.. IMPRESSION: 1. No free intraperitoneal gas or dilated gas-filled loops of bowel to suggest obstruction. 2. IUD. Reviewed, dictated and finalized at location A.
== END 2025-02-25 13:25 | disposition home or self-care (01) ==
LOC: CHSIMG 13:26
PROVIDERS: PCP Family Medicine; Visit Provider Family Medicine
DX: K59.00 Constipation, unspecified (principal); Z97.5 Presence of (intrauterine) contraceptive device
CPT/HCPCS: 74019

== ENCOUNTER 2025-03-03 08:29 | Outpatient (CLI) | payer OTHER, SELFPAY ==
--- NOTE | ~2025-03-03 | US_ITS ---
EXAMINATION: US abdomen complete, 03/03/2025 8:36 CDT HISTORY: ABDOMINAL PAIN, ELEV LIVER/PANCREATIC ENZYMES COMPARISON: None Technique: Hennessy-scale and color Doppler images were obtained. Findings: LIVER: Mild increased echogenicity of the liver. . GALLBLADDER/BILIARY: Unremarkable.No cholelithiais, wall thickening or pericholecystic fluid. No biliary dilatation. CBD 3 mm. Trosper sign negative. PANCREAS: Pancreas limited by bowel gas. SPLEEN: Unremarkable, no splenomegaly. KIDNEYS: Right Kidney: Right kidney 10 x 3.8 x 3.2 cm, normal. Left Kidney: Left kidney 9 x 3.4 x 5.2 cm, normal. AORTA: Normal caliber aorta. IVC: Unremarkable. FREE FLUID: None. Impression: 1. Mild hepatic steatosis versus hepatocellular disease Reviewed, dictated and finalized at location A. Impression: 1. Mild hepatic steatosis versus hepatocellular disease
== END 2025-03-03 08:30 | disposition home or self-care (01) ==
PROVIDERS: PCP Family Medicine; Visit Provider Family Medicine
DX: R10.9 Unspecified abdominal pain (principal); R74.8 Abnormal levels of other serum enzymes; R93.5 Abnormal findings on diagnostic imaging of other abdominal regions, including retroperitoneum
CPT/HCPCS: 76700